=== PATIENT | male | born 1950 | race American Indian/Alaskan Native ===

== ENCOUNTER → 2021-04-21 15:00 | Outpatient (CLI) | payer MEDICARE, MEDICAID, OTHER, SELFPAY ==
[2021-04-21 16:04] LABS: Add Manual Diff / Slide Review NO; Basophils Absolute Auto 0 /uL (0-100); Basophils Percent Auto 0.4 % (0-2); Eosinophils Absolute Auto 300 /uL (0-450); Eosinophils Percent Auto 3.9 % (2-4); Hematocrit 24.6 % (41-53); Hemoglobin 8.1 g/dL (13.5-17.5); Lymphocytes Absolute Auto 1700 /uL (1100-4500); Lymphocytes Percent Auto 22.6 % (25-40); Mean Corpuscular Hemoglobin 25.8 PG (26-34); Mean Corpuscular Volume 78.2 fL (80-100); Monocytes Absolute Auto 400 /uL (0-900); Monocytes Percent Auto 5.9 % (3-14); Neutrophils Absolute Auto 5000 /uL (1500-7000); Neutrophils Percent Auto 67.2 % (50-75); Platelet Count 304 X10^3/uL (150-400); Red Blood Cell Count 3.14 X10^6/uL (4.5-5.9); Red Cell Distribution Width 24.4 % (11.6-14.8); White Blood Cell Count 7.5 X10^3/uL (4.5-11.0)
[2021-04-21 16:35] LABS: Anisocytosis 3+; Microcytosis 1+
== END ==
PROVIDERS: PCP Family Medicine; Referring Provider Family Medicine; Visit Provider Family Medicine
DX: I63.9 Cerebral infarction, unspecified (principal); R58 Hemorrhage, not elsewhere classified
CPT/HCPCS: 36415; 85025

== ENCOUNTER 2021-06-01 16:43 | Inpatient (IN) | payer MEDICARE, MEDICAID, OTHER, SELFPAY ==
[2021-06-01] VITALS (16 sets, daily range): BP systolic 93–138; BP diastolic 53–72; PULSE 74–105; RESP 16–26; TEMP 36.1–37.2; O2SAT 95–100; BMI 22.7
[2021-06-01 17:46] LABS: Prothrombin Time 11.6 SECONDS (10.1-12.7)
[2021-06-01 17:47] LABS: Add Manual Diff / Slide Review NO; Basophils Absolute Auto 0 /uL (0-100); Basophils Percent Auto 0.5 % (0-2); Eosinophils Absolute Auto 200 /uL (0-450); Eosinophils Percent Auto 2.5 % (2-4); Lymphocytes Absolute Auto 1100 /uL (1100-4500); Mean Corpuscular HGB Conc 30.9 % (30-36); Mean Corpuscular Hemoglobin 22.8 PG (26-34); Mean Corpuscular Volume 73.7 fL (80-100); Monocytes Absolute Auto 400 /uL (0-900); Monocytes Percent Auto 6.9 % (3-14); Neutrophils Absolute Auto 4300 /uL (1500-7000); Neutrophils Percent Auto 71.1 % (50-75); Platelet Count 386 X10^3/uL (150-400); Red Blood Cell Count 2.15 X10^6/uL (4.5-5.9); Red Cell Distribution Width 18.4 % (11.6-14.8)
[2021-06-01 17:49] LABS: PTT Partial Thromboplastin Tim 58 SECONDS (26.4-36.2)
[2021-06-01 17:51] LABS: Alanine Aminotransferase 13 IU/L (<50); Albumin 4.3 g/dL (3.5-5.0); Albumin Globulin Ratio 1.3 (1.0-2.8); Alkaline Phosphatase 136 U/L (38-126); Aspartate Aminotransferase 24 IU/L (17-59); BUN Creatinine Ratio 39.5 (6-22); Bilirubin Total 0.3 mg/dL (0.2-1.3); Blood Urea Nitrogen 45 mg/dL (9-20); Carbon Dioxide 25 mmol/L (22-32); Chloride 110 mmol/L (98-107); Estimated Glomerular Filt Rate > 60.0 mL/min (>60); Globulin 3.4 g/dL (1.7-4.1); Glucose 119 mg/dL (80-110); HEMOLYSIS < 15 (0-50); Sodium 144 mmol/L (137-145); Total Protein 7.7 g/dL (6.3-8.2)
[2021-06-01 17:54] LABS: Hematocrit 15.8 % (41-53); Hemoglobin 4.9 g/dL (13.5-17.5)
[2021-06-01 17:58] LABS: Potassium 5.5 mmol/L (3.4-5.1)
--- NOTE | 2021-06-01 18:18 | ED_ITS ---
HPI - GI Bleed General Chief complaint: GI Bleed Stated complaint: rectal bleed Time Seen by Provider: 06/01/21 17:50 History of Present Illness HPI Narrative: 71-year-old male with history of multiple strokes leaving him with sided weakness and expressive aphasia. Patient presents due to fatigue and lightheadedness and had large bright red bloody stool earlier today. He does have a history of lower GI bleed as recently as March, he had been seen at [facility]. He takes aspirin but no other blood thinners. He denies any pain nor fever or chills. He was COVID positive about 1 week ago but no longer is feverish in has no runny nose, sore throat cough or chest pain. Related Data Home Medications Medication Instructions Recorded Confirmed ASPIRIN (Aspirin Low Dose) mg PO #0 03/14/08 atorvastatin 10 mg tablet (Lipitor) #0 11/18/16 hydrocodone 10 mg-acetaminophen #0 11/18/16 325 mg tablet Previous Rx's Medication Instructions Recorded cephalexin 500 mg capsule 500 mg PO TID #21 cap 11/18/16 Allergies Allergy/AdvReac Type Severity Reaction Status Date / Time No Known Drug Allergies Allergy Verified 06/01/21 19:59 Review of Systems Review of Systems Narrative: GENERAL: See HPI HEENT: Denies sinus pain, ear pain, sore throat, difficulty swallowing, dizziness. RESPIRATORY: Denies dyspnea, cough, wheezing, hemoptysis, sputum. CARDIOVASCULAR: Denies chest pain, palpitations, orthopnea, edema, GASTROINTESTINAL: See HP : Denies dysuria, frequency, incontinence, hematuria, urinary retention. MUSCULOSKELETAL: denies weakness, joint pain, or bony pain SKIN: Denies rash, skin lesions, or other NEUROLOGIC: Denies weakness, headache, numbness, change in speech, confusion, seizures, incoordination. PSYCHIATRIC: No concerning psychosocial issues. 12 point review of systems is negative except for those stated above Patient History Medical History (Updated 06/01/21 @ 23:46 by TRISHA Sorenson) Aphasia as late effect of stroke History of stroke within last year Surgical History (Updated 06/02/21 @ 01:20 by TRISHA Sorenson) S/P percutaneous endoscopic gastrostomy (PEG) tube placement Family History (Updated 06/02/21 @ 01:05 by TRISHA Sorenson) Mother Myocardial infarction Father Alcoholism Social History (Updated 06/02/21 @ 01:07 by TRISHA Sorenson) marital status: unmarried,living together household members: significant other lives independently: Yes caregiver/support person: Yes 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 Well-developed patient, in no obvious distress, nonverbal but communicates with head nods. HEAD: Atraumatic. Normocephalic. EYES: Pale conjunctiva Pupils equal round and reactive. Extraocular motions intact. No scleral icterus. No injection or drainage. ENT: Nose without bleeding, purulent drainage. Throat without erythema, tonsillar hypertrophy or exudate. Airway patent. NECK: Trachea midline. Non tender CARDIOVASCULAR: Regular rate and rhythm without murmurs, gallops, or rubs. RESPIRATORY: Clear to auscultation. Breath sounds equal bilaterally. No wheezes, rales, or rhonchi. GASTROINTESTINAL: Abdomen soft, non-tender, nondistended. EXTREMITIES: No edema or joint tenderness. BACK: Nontender without deformity or crepitance. No flank tenderness. 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) Stat 06/01/21 17:30 Complete Blood Count AUTO DIFF Stat Comprehensive Metabolic Panel Stat Partial Thromboplastin Time Stat Prothrombin Time INR Stat Type and Screen Stat transfuse [Packed Cells] Stat Acetaminophen (Acetaminophen 650 Mg Supp) 650 mg TX Q4HR PRN PRN Reason: Fever/Mild Pain (1-3) Dextrose (Dextrose 50 % In Water 25 Gm/50 Ml Syringe) 25 gm IV PRN PRN PRN Reason: Hypoglycemia Ceftriaxone Sodium 1,000 mg/ (Sodium Chloride) 100 mls @ 200 mls/hr IV Q24H NIECY Sodium Chloride (Normal Saline 0.9%) 250 mls @ 21 mls/hr IV Q24H PRN PRN Reason: Flush Last Admin: 06/02/21 01:11 Dose: 21 mls/hr Documented by: LOGK Insulin Human Lispro (Insulin Lispro 100 Unit/Ml 3ml Vial) 0 unit SUBCUT ACHS NIECY; Protocol Naloxone HCl (Naloxone 0.4 Mg/Ml Vial) 0.2 mg IV Q2MIN PRN PRN Reason: Opiate Reversal Ondansetron HCl (Ondansetron 4 Mg/2 Ml Inj) 4 mg IV Q8HR PRN PRN Reason: Nausea And Vomiting Pantoprazole Sodium (Pantoprazole 40 Mg Vial) 40 mg IV BID NIECY Discontinued Medications Ceftriaxone Sodium 2,000 mg/ (Sodium Chloride) 100 mls @ 200 mls/hr IV NOW ONE Stop: 06/01/21 23:36 Last Admin: 06/02/21 01:11 Dose: 200 mls/hr Documented by: LOGK Pantoprazole Sodium (Pantoprazole 40 Mg Vial) 40 mg IV NOW ONE Stop: 06/01/21 19:48 Last Admin: 06/01/21 20:00 Dose: 40 mg Documented by: ATAYLOR Consultations Consultation #1: general surgery contacted and happy to play a role in consultation, request admission to hospitalist service Vital Signs Vital signs: Vital Signs - 8 hr 06/01/21 18:00 06/01/21 18:30 06/01/21 19:00 Temperature Pulse Rate 96 H 88 104 H Respiratory Rate 26 H 17 24 Blood Pressure Pulse Oximetry 95 98 06/01/21 19:04 06/01/21 19:30 06/01/21 20:00 Temperature Pulse Rate 93 H 90 92 H Respiratory Rate 17 16 18 Blood Pressure 106/56 L 96/55 L 107/58 L Pulse Oximetry 100 100 100 06/01/21 20:20 06/01/21 20:23 Temperature 97.5 F L Pulse Rate 96 H 93 H Respiratory Rate 19 16 Blood Pressure 98/55 L 98/55 L Pulse Oximetry 99 MDM - GI Bleed Lab Data Result diagrams: 06/01/21 17:30 06/01/21 17:30 Labs: Lab Results 06/01/21 06/01/21 06/01/21 Range/Units 17:25 17:30 17:30 WBC 6.0 (4.5-11.0) X10^3/uL RBC 2.15 L (4.5-5.9) X10^6/uL Hgb 4.9 L* (13.5-17.5) g/dL Hct 15.8 L* (41-53) % MCV 73.7 L (80-100) fL MCH 22.8 L (26-34) PG MCHC 30.9 (30-36) % RDW 18.4 H (11.6-14.8) % Plt Count 386 (150-400) X10^3/uL Neut % (Auto) 71.1 (50-75) % Lymph % (Auto) 19.0 L (25-40) % [place] % (Auto) 6.9 (3-14) % Eos % (Auto) 2.5 (2-4) % Baso % (Auto) 0.5 (0-2) % Neut # (Auto) 4300 (7878-9221) /uL Lymph # (Auto) 1100 (8051-9011) /uL [place] # (Auto) 400 (0-900) /uL Eos # (Auto) 200 (0-450) /uL Baso # (Auto) 0 (0-100) /uL PT 11.6 (10.1-12.7) SECONDS INR 1.0 (0.9-1.3) APTT 58 H (26.4-36.2) SECONDS Sodium (137-145) mmol/L Potassium (3.4-5.1) mmol/L Chloride (98-107) mmol/L Carbon Dioxide (22-32) mmol/L BUN (9-20) mg/dL Creatinine (0.66-1.25) mg/dL Estimated GFR (>60) mL/min BUN/Creatinine Ratio (6-22) Glucose (80-110) mg/dL Calcium (8.4-10.2) mg/dL Total Bilirubin (0.2-1.3) mg/dL AST (17-59) IU/L ALT (<50) IU/L Alkaline Phosphatase (38-126) U/L Total Protein (6.3-8.2) g/dL Albumin (3.5-5.0) g/dL Globulin (1.7-4.1) g/dL Albumin/Globulin Ratio (1.0-2.8) SARS-CoV-2 (PCR) Positive H (Negative) Blood Type Antibody Screen Crossmatch 06/01/21 06/01/21 Range/Units 17:30 17:30 WBC (4.5-11.0) X10^3/uL RBC (4.5-5.9) X10^6/uL Hgb (13.5-17.5) g/dL Hct (41-53) % MCV (80-100) fL MCH (26-34) PG MCHC (30-36) % RDW (11.6-14.8) % Plt Count (150-400) X10^3/uL Neut % (Auto) (50-75) % Lymph % (Auto) (25-40) % [place] % (Auto) (3-14) % Eos % (Auto) (2-4) % Baso % (Auto) (0-2) % Neut # (Auto) (3310-8162) /uL Lymph # (Auto) (0984-2388) /uL [place] # (Auto) (0-900) /uL Eos # (Auto) (0-450) /uL Baso # (Auto) (0-100) /uL PT (10.1-12.7) SECONDS INR (0.9-1.3) APTT (26.4-36.2) SECONDS Sodium 144 (137-145) mmol/L Potassium 5.5 H (3.4-5.1) mmol/L Chloride 110 H (98-107) mmol/L Carbon Dioxide 25 (22-32) mmol/L BUN 45 H (9-20) mg/dL Creatinine 1.14 (0.66-1.25) mg/dL Estimated GFR > 60.0 (>60) mL/min BUN/Creatinine Ratio 39.5 H (6-22) Glucose 119 H (80-110) mg/dL Calcium 9.0 (8.4-10.2) mg/dL Total Bilirubin 0.3 (0.2-1.3) mg/dL AST 24 (17-59) IU/L ALT 13 (<50) IU/L Alkaline Phosphatase 136 H (38-126) U/L Total Protein 7.7 (6.3-8.2) g/dL Albumin 4.3 (3.5-5.0) g/dL Globulin 3.4 (1.7-4.1) g/dL Albumin/Globulin Ratio 1.3 (1.0-2.8) SARS-CoV-2 (PCR) (Negative) Blood Type O Positive Antibody Screen Negative Crossmatch See Detail Discharge Plan Departure Patient Disposition: Admitted As Inpatient Clinical Impression: Acute GI bleeding, Anemia, COVID-19 Admit Date/Time: 06/01/21 20:27 Admit Provider: Razia Sotomayor
[2021-06-01 18:21] LABS: COVID19 - ADMIT (NP swab/PCR) POSITIVE (Negative)
[2021-06-01] MEDS: PANTOPRAZOLE 40 MG VIAL IV (20:00)
[2021-06-01 21:55] LABS: Bacteria Urine Moderate (10-30); Culture Indicated Urine Specimen Cultured; RBC Urine 0-1/HPF (0-5/HPF); Squamous Epithelial Cell Urine 0-1 /HPF (0-5/HPF); WBC Urine 10-30/HPF (0-5/HPF)
--- NOTE | 2021-06-01 23:44 | P.HP_ITS ---
History of Present Illness History of Present Illness Date Patient Seen: 06/01/21 Time Patient Seen: 22:00 Chief complaint: Rectal bleed, UTI Narrative: Charlie Francis is a 69-year-old male with a history of multiple strokes the 1st 1 occurring approximately 20 years ago followed by a series of 5 strokes that began in January of 2020 with 3 in 6 session over 2 week. Followed by another CVA in July of 2020 and the last 1 occurring in March of 2021. He was seen at [facility] for a GI bleed and admitted right before his last stroke. Per the discharge summary of March 30, 2021, the patient was transfused 3 units of PRBC. He underwent upper and lower endoscopy and they did not find any evidence of bleeding but he had mild duodenitis. He was also noted to have watershed infarcts full leave to be secondary to the blood loss. The patient has a past history of diabetes type 2 and when he was at [facility] his hemoglobin a was not see was 4.5 likely due to the dietary changes he has had to undergo. Patient is unable to provide a history as he is aphasic with significant left- sided deficits. Information is provided by review of [facility] records and discussion with his significant other Cristina Crain who is also his DPOA. He contracted breakthrough COVID-19 10 days ago and continues to test positive. Apparently his significant other and members of his family in the [facility] contracted COVID, likely over the holidays, members are now asymtomatic and are testing negative per Cristina. He had jes blood in this morning's bowel movement in a photo Cristina showed to the ED provider. She also noted he was weaker in his lower extremities. They have multiple physical therapists, occupational and speech therapists providing services to him as well as famly members. Patient can communicate through yes or no questions, nursing noted Cristina was able to communicate at a higher level with him. Patient's vital signs were stable as he is afebrile, blood pressure 102/62, heart rate 89, respiratory rate 17, oxygen saturation of 99% on room air he weighs 71.6 kg. His hemoglobin and hematocrit on presentation was 4.9 in 15.8 respectively, platelet count is 386, sodium 144, potassium 5.5, chloride 110, BUN 45, glucose 119, alk-phos 136, U/A is positive for a UTI, COVID-19 PCR is positive. Patient History Medical History (Updated 06/01/21 @ 23:46 by TRISHA Sorenson) Aphasia as late effect of stroke History of stroke within last year Surgical History (Updated 06/02/21 @ 01:20 by TRISHA Sorenson) S/P percutaneous endoscopic gastrostomy (PEG) tube placement Family & Social History Family History (Updated 06/02/21 @ 01:05 by TRISHA Sorenson) Mother Myocardial infarction Father Alcoholism Social History: Retired [place] [employer] Safety & Behavioral: Feels Safe in Current Yes Environment Been Physically Hurt or No Threatened By a Person Tobacco & Substance use: Remote history of alcoholism Meds Home Medications and Allergies Home Medications Medication Instructions Recorded Confirmed Type ASPIRIN (Aspirin Low Dose) mg PO #0 03/14/08 History atorvastatin 10 mg tablet (Lipitor) #0 11/18/16 History cephalexin 500 mg capsule 500 mg PO TID #21 cap 11/18/16 Rx hydrocodone 10 mg-acetaminophen #0 11/18/16 History 325 mg tablet Allergies Allergy/AdvReac Type Severity Reaction Status Date / Time No Known Drug Allergies Allergy Verified 06/01/21 19:59 Review of Systems Review of Systems ROS: Yes other (Aphasic) Exam Vital Signs (past 8 hours): - 06/01/21 17:04 06/01/21 17:30 06/01/21 18:00 Temperature 98.9 F Pulse Rate 96 H 93 H 96 H Respiratory Rate 16 24 26 H Blood Pressure 138/65 Pulse Oximetry 100 100 95 06/01/21 18:30 06/01/21 19:00 06/01/21 19:04 Temperature Pulse Rate 88 104 H 93 H Respiratory Rate 17 24 17 Blood Pressure 106/56 L Pulse Oximetry 98 100 06/01/21 19:30 06/01/21 20:00 06/01/21 20:20 Temperature Pulse Rate 90 92 H 96 H Respiratory Rate 16 18 19 Blood Pressure 96/55 L 107/58 L 98/55 L Pulse Oximetry 100 100 99 06/01/21 20:23 06/01/21 20:30 06/01/21 20:39 Temperature 97.5 F L 97.8 F Pulse Rate 93 H 105 H 74 Respiratory Rate 16 25 H 16 Blood Pressure 98/55 L 93/53 L 110/55 L Pulse Oximetry 100 06/01/21 21:25 06/01/21 22:46 06/01/21 23:05 Temperature 96.9 F L 97.5 F L 97.5 F L Pulse Rate 92 H 94 H 94 H Respiratory Rate 18 18 18 Blood Pressure 117/72 106/61 106/61 Pulse Oximetry 99 06/01/21 23:30 Temperature 98.0 F Pulse Rate 89 Respiratory Rate 17 Blood Pressure 102/62 Pulse Oximetry Oxygen Delivery Method Room Air Narrative Exam Narrative: Gen: Alert, oriented, well-developed 71 y.o. male, NAD HEENT: normocephalic, atraumatic, conjunctiva clear, sclera non-icteric, oral mucosa pink and moist Neck: supple, full ROM, no JVD, trachea is midline Resp: Lungs CTA, non-labored breathing CV: RRR, no murmur or rubs Abd: soft, non-tender, normoactive BTs Skin: no lesions or rashes, dry and intact Neuro: Alert and oriented, left side appears to be flaccid. Aphasic Extremities: moves all 4 extremities, is wheelchair bound, negative Kenneth?s sign Psyche: normal mood and affect. Objective Labs Result Diagrams: 06/01/21 17:30 06/01/21 17:30 Labs: Laboratory Results - last 24 hr 06/01/21 06/01/21 06/01/21 17:25 17:30 17:30 WBC 6.0 RBC 2.15 L Hgb 4.9 L* Hct 15.8 L* MCV 73.7 L MCH 22.8 L MCHC 30.9 RDW 18.4 H Plt Count 386 Neut % (Auto) 71.1 Lymph % (Auto) 19.0 L [place] % (Auto) 6.9 Eos % (Auto) 2.5 Baso % (Auto) 0.5 Neut # (Auto) 4300 Lymph # (Auto) 1100 [place] # (Auto) 400 Eos # (Auto) 200 Baso # (Auto) 0 PT 11.6 INR 1.0 APTT 58 H Sodium Potassium Chloride Carbon Dioxide BUN Creatinine Estimated GFR BUN/Creatinine Ratio Glucose Calcium Total Bilirubin AST ALT Alkaline Phosphatase Total Protein Albumin Globulin Albumin/Globulin Ratio Urine RBC Urine WBC Ur Squamous Epith Cells Urine Bacteria Ur Culture Indicated? SARS-CoV-2 (PCR) Positive H Blood Type Antibody Screen Crossmatch 06/01/21 06/01/21 06/01/21 17:30 17:30 21:24 WBC RBC Hgb Hct MCV MCH MCHC RDW Plt Count Neut % (Auto) Lymph % (Auto) [place] % (Auto) Eos % (Auto) Baso % (Auto) Neut # (Auto) Lymph # (Auto) [place] # (Auto) Eos # (Auto) Baso # (Auto) PT INR APTT Sodium 144 Potassium 5.5 H Chloride 110 H Carbon Dioxide 25 BUN 45 H Creatinine 1.14 Estimated GFR > 60.0 BUN/Creatinine Ratio 39.5 H Glucose 119 H Calcium 9.0 Total Bilirubin 0.3 AST 24 ALT 13 Alkaline Phosphatase 136 H Total Protein 7.7 Albumin 4.3 Globulin 3.4 Albumin/Globulin Ratio 1.3 Urine RBC 0-1/hpf Urine WBC 10-30/hpf H Ur Squamous Epith Cells 0-1 /hpf Urine Bacteria Moderate (10-30) H Ur Culture Indicated? Specimen cultured SARS-CoV-2 (PCR) Blood Type O Positive Antibody Screen Negative Crossmatch See Detail Assessment & Plan Assessment & Plan narrative: Charlie Francis will be admitted for treatment and management of asymptomatic anemia. 1. Symptomatic gastrointestinal bleed, acute, present on admission * His initially written for 2 units PRBC. Will do H&H after 2 units and if below 8 will transfuse 1 more unit. * IV Protonix 40 mg b.i.d. 2. COVID-19, present on admission * Airborne isolation precautions * This is an asymptomatic breakthrough infection so will not initiate COVID treatment 3. Urinary tract infection, acute, present on admission * Start IV ceftriaxone with a loading dose of to 2 gr followed by 1 gr daily * Await UA culture results and adjust based on culture and sensitivity 4. Recent history of multiple CVAs, appears to be now chronic * Have ordered PT and OT as he was involved with those therapies when admitted * Dietary consult for tube feedings 5. History of diabetes type 2 * Will have a.c. HS glucose checks and low dose correctional insulin 6. Essential hypertension, stable * Per [facility] records he was taking amlodipine 2.5 mg per G-tube daily will continue 7. Hyperlipidemia, stable * Per [facility] records he was taking atorvastatin 40 mg per G-tube at bedtime VTE Prophylaxis: Wells risk score 0, pharmacological anticoagulation is currently contraindicated due to the patient's current bleeding. Bilateral SCDs as tolerated Patient is admitted to the inpatient service due to the severity of disease, risks of further disease progression and this stay is expected to exceed 2 midnights. FEN: IV fluids: saline lock, diet: tube feedings, labs: CBC, C/BMP, liver enzymes, Mag Consultants Dr. Long, care and involvement in the patient?s care is appreciated. Dispo: probable discharge back to home Code status: Limited code as discussed patient's DPOA and fiance, no intubation [X] I have utilized all available immediate resources to obtain, update, or review of the patient's current medications COVID-19 COVID-19 status: Positive Result date/Date tested (Pos, Neg/Pending): 06/02/21 Quality VTE Deep Vein Thrombosis/Pulmonary Embolism Present on Admission: No MIPS - Admit I confirm the patient?s Advance Care Plan is present, Code status is documented, Surrogate decision maker is in patient?s record [If Yes, STOP here]: Yes MIPS - DC The patient has current or prior documentation of left ventricular ejection fraction (LVEF) less than 40%, or moderate or severely depressed left ventricular systolic function.: No
[2021-06-02] VITALS (12 sets, daily range): BP systolic 106–155; BP diastolic 58–73; PULSE 79–91; RESP 16–18; TEMP 36.2–37.2; O2SAT 92–100
[2021-06-02] MEDS: SODIUM CHLORIDE 0.9% 250 ML 21 ML IV (01:11)
[2021-06-02] MEDS: cefTRIAXone 2,000 MG in SODIUM CHLORIDE 0.9% 100 ML 200 ML IV (01:11)
--- NOTE | 2021-06-02 02:26 | PC.NURSE ---
Pt arrived from ED on stretcher at 2100. PRBC infusing at time of arrival. Pt nonverbal, answers yes/no questions with nodding, significant other assisted with admission. Pt oriented to room, call light and fall precautions. Call light and belongings within reach.
[2021-06-02 02:45] LABS: Add Manual Diff / Slide Review NO; Basophils Absolute Auto 100 /uL (0-100); Basophils Percent Auto 0.9 % (0-2); Eosinophils Absolute Auto 200 /uL (0-450); Eosinophils Percent Auto 3.2 % (2-4); Hemoglobin 7.2 g/dL (13.5-17.5); Lymphocytes Absolute Auto 1300 /uL (1100-4500); Lymphocytes Percent Auto 20.2 % (25-40); Mean Corpuscular HGB Conc 32.5 % (30-36); Mean Corpuscular Hemoglobin 26.1 PG (26-34); Mean Corpuscular Volume 80.4 fL (80-100); Monocytes Absolute Auto 500 /uL (0-900); Monocytes Percent Auto 7.4 % (3-14); Neutrophils Absolute Auto 4400 /uL (1500-7000); Neutrophils Percent Auto 68.3 % (50-75); Platelet Count 329 X10^3/uL (150-400); Red Blood Cell Count 2.77 X10^6/uL (4.5-5.9); White Blood Cell Count 6.4 X10^3/uL (4.5-11.0)
[2021-06-02 02:46] LABS: Hematocrit 22.3 % (41-53)
[2021-06-02 02:49] LABS: BUN Creatinine Ratio 37.3 (6-22); Blood Urea Nitrogen 38 mg/dL (9-20); Carbon Dioxide 27 mmol/L (22-32); Chloride 113 mmol/L (98-107); Estimated Glomerular Filt Rate > 60.0 mL/min (>60); Glucose 92 mg/dL (80-110); HEMOLYSIS < 15 (0-50); Sodium 143 mmol/L (137-145)
[2021-06-02 02:54] LABS: Potassium 5.4 mmol/L (3.4-5.1)
--- NOTE | 2021-06-02 09:10 | OT.IPNOTE ---
Per nurse to hold OT eval as suppose to get another Hct and Hgb reading currently he is 7.2 Hgb and 22.3 Hct.
[2021-06-02] MEDS: AMLODIPINE 5 MG TABLET 2.5 MG TUBE (09:42)
[2021-06-02] MEDS: PANTOPRAZOLE 40 MG VIAL IV ×2 (09:42→21:32)
--- NOTE | 2021-06-02 11:07 | PM.CN ---
History of Present Illness Consult details Date Patient Seen: 06/02/21 Chief complaint: Rectal bleed, UTI Reason for consult: Severe anemia and GI bleed Requesting provider: Melanie Spencer Narrative: Recent GI bleed with hospitalization at [facility]. Covid positive and reports of deferred EGD and Colonoscopy until not infectious. Light head, blood in toilet. Meds Home Medications and Allergies Home Medications Medication Instructions Recorded Confirmed Type ASPIRIN (Aspirin Low Dose) mg PO #0 03/14/08 History atorvastatin 10 mg tablet (Lipitor) #0 11/18/16 History cephalexin 500 mg capsule 500 mg PO TID #21 cap 11/18/16 Rx hydrocodone 10 mg-acetaminophen #0 11/18/16 History 325 mg tablet Allergies Allergy/AdvReac Type Severity Reaction Status Date / Time No Known Drug Allergies Allergy Verified 06/01/21 19:59 Exam Vital Signs (past 8 hours): - 06/02/21 04:57 06/02/21 05:14 06/02/21 07:45 Temperature 97.7 F 97.7 F 98.9 F Pulse Rate 83 79 79 Respiratory Rate 18 16 16 Blood Pressure 142/73 H 133/66 127/58 L Pulse Oximetry 99 06/02/21 08:05 06/02/21 09:00 Temperature 98.9 F Pulse Rate 79 Respiratory Rate 16 Blood Pressure 127/58 L Pulse Oximetry 99 Oxygen Delivery Method Room Air Oxygen Flow Rate 0 Narrative Exam Narrative: deferred until tomorrow just prior to procedure. Objective Labs Result Diagrams: 06/02/21 02:24 06/02/21 02:24 Labs: Laboratory Results - last 24 hr 06/01/21 06/01/21 06/01/21 17:25 17:30 17:30 WBC 6.0 RBC 2.15 L Hgb 4.9 L* Hct 15.8 L* MCV 73.7 L MCH 22.8 L MCHC 30.9 RDW 18.4 H Plt Count 386 Neut % (Auto) 71.1 Lymph % (Auto) 19.0 L [place] % (Auto) 6.9 Eos % (Auto) 2.5 Baso % (Auto) 0.5 Neut # (Auto) 4300 Lymph # (Auto) 1100 [place] # (Auto) 400 Eos # (Auto) 200 Baso # (Auto) 0 PT 11.6 INR 1.0 APTT 58 H Sodium Potassium Chloride Carbon Dioxide BUN Creatinine Estimated GFR BUN/Creatinine Ratio Glucose Calcium Total Bilirubin AST ALT Alkaline Phosphatase Total Protein Albumin Globulin Albumin/Globulin Ratio Urine RBC Urine WBC Ur Squamous Epith Cells Urine Bacteria Ur Culture Indicated? SARS-CoV-2 (PCR) Positive H Blood Type Antibody Screen Crossmatch 06/01/21 06/01/21 06/01/21 17:30 17:30 21:24 WBC RBC Hgb Hct MCV MCH MCHC RDW Plt Count Neut % (Auto) Lymph % (Auto) [place] % (Auto) Eos % (Auto) Baso % (Auto) Neut # (Auto) Lymph # (Auto) [place] # (Auto) Eos # (Auto) Baso # (Auto) PT INR APTT Sodium 144 Potassium 5.5 H Chloride 110 H Carbon Dioxide 25 BUN 45 H Creatinine 1.14 Estimated GFR > 60.0 BUN/Creatinine Ratio 39.5 H Glucose 119 H Calcium 9.0 Total Bilirubin 0.3 AST 24 ALT 13 Alkaline Phosphatase 136 H Total Protein 7.7 Albumin 4.3 Globulin 3.4 Albumin/Globulin Ratio 1.3 Urine RBC 0-1/hpf Urine WBC 10-30/hpf H Ur Squamous Epith Cells 0-1 /hpf Urine Bacteria Moderate (10-30) H Ur Culture Indicated? Specimen cultured SARS-CoV-2 (PCR) Blood Type O Positive Antibody Screen Negative Crossmatch See Detail 06/02/21 06/02/21 02:24 02:24 WBC 6.4 RBC 2.77 L Hgb 7.2 L Hct 22.3 L MCV 80.4 D MCH 26.1 MCHC 32.5 RDW 20.0 H Plt Count 329 Neut % (Auto) 68.3 Lymph % (Auto) 20.2 L [place] % (Auto) 7.4 Eos % (Auto) 3.2 Baso % (Auto) 0.9 Neut # (Auto) 4400 Lymph # (Auto) 1300 [place] # (Auto) 500 Eos # (Auto) 200 Baso # (Auto) 100 PT INR APTT Sodium 143 Potassium 5.4 H Chloride 113 H Carbon Dioxide 27 BUN 38 H Creatinine 1.02 Estimated GFR > 60.0 BUN/Creatinine Ratio 37.3 H Glucose 92 Calcium 9.0 Total Bilirubin AST ALT Alkaline Phosphatase Total Protein Albumin Globulin Albumin/Globulin Ratio Urine RBC Urine WBC Ur Squamous Epith Cells Urine Bacteria Ur Culture Indicated? 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
--- NOTE | 2021-06-02 11:10 | PT-IP ANOTE ---
Pt was on hold this morning due to low H&H. checked with nurse and pt just received 2 units of blood. per rounds: hold pending H&H result.
[2021-06-02 12:20] LABS: Hemoglobin 8.8 g/dL (13.5-17.5); Mean Corpuscular HGB Conc 32.6 % (30-36); Mean Corpuscular Hemoglobin 26.1 PG (26-34); Mean Corpuscular Volume 80.1 fL (80-100); Platelet Count 302 X10^3/uL (150-400); Red Blood Cell Count 3.37 X10^6/uL (4.5-5.9); Red Cell Distribution Width 19.2 % (11.6-14.8); White Blood Cell Count 6.1 X10^3/uL (4.5-11.0)
--- NOTE | 2021-06-02 12:30 | PT.IIE ---
Current Diagnoses Gastrointestinal hemorrhage, unspecified (06/01/21) Surgery Performed Operation Date: 06/03/21 09:00 <No data on this case meets the specified criteria> Medical History (Last Updated 06/01/21 @ 23:46 by TRISHA Sorenson) Aphasia as late effect of stroke History of stroke within last year Physical Therapy Inpatient Evaluation/Re-Eval M1 PT/OT-IP Prior Functional Status Start: 06/02/21 13:04 Freq: NEEDED Status: Active Protocol: Document 06/02/21 12:30 AB (Rec: 06/02/21 13:35 [email or web address]) Medical Review Prior Functional Status Medical History Reviewed Yes Diet/Fluid Consistency Alternative Means,NPO Communication pt with aphasia and unable to verbalize needs; able to nod in agreement but inconsistent Mobility and Gait Called pt's DPOA Cristina and PLOF and home set up obtained; stated that pt requires max A with transfers and is w/c bound. requires assist with w /c mobility. stated that pt has good days and bad days but most of the time needing 1 person assist with transfers. Activities of Daily Living and IADL's DPOA stated that pt is assisted with showers (has a shower transfer chair), toileting and dressing; Social History Household Members caregiver Living Arrangements House Number of Floors (Floors) One Floor Number of Stairs To Enter/Railing? ramp to enter Home Environment High Toilet Home Equipment Manual Wheelchair,Hospital Bed M2 PT-IP Current Condition Start: 06/02/21 13:04 Freq: NEEDED Status: Active Protocol: Document 06/02/21 12:30 AB (Rec: 06/02/21 13:35 [email or web address]) Physical Therapy Current Condition Current Condition Evaluation Date 06/02/21 Treatment Diagnosis Covid+; GI bleed; generalized weakness Onset Date 06/01/20 M3 PT-IP Subjective Start: 06/02/21 13:04 Freq: NEEDED Status: Active Protocol: Document 06/02/21 12:30 AB (Rec: 06/02/21 13:35 [email or web address]) Subjective Physical Therapy Visit Type Type Initial Evaluation Visit Start Time 12:30 Visit Stop Time 12:58 Total Visit Minutes 28 Number of CELL ASSEMBLY PINNER Visits 0 M4 PT-IP Mobility and Gait Start: 06/02/21 13:04 Freq: NEEDED Status: Active Protocol: Document 06/02/21 12:30 AB (Rec: 06/02/21 13:35 AB [email or web address]) PT-Bed Mobility Assessment Supine to Sit Supine to Sit Minimal Assistance,Head of Bed Elevated Sit to Supine Sit to Supine Minimal Assistance,Head of Bed Elevated PT-Transfer Assessment Sit to and From Stand Sit to and from Stand Maximum Assistance,1 Person Assistance,Use of Upper Extremities Equipment Transfer Assistive Device None,Front Wheeled Walker Orthotic/Prosthetic Devices or Brace: No Transfers Transfer Destination Bed,Chair Transfer Technique Stand Step Pivot Transfer Ability Level of Assist Maximum Assistance,1 Person Assistance,Use of Upper Extremities Comments Mobility Comments pt sitting on chair. pt with aphasia but agreed to do PT. requires max cues with all tasks. completed sit to stand from chair max A and squat pivot to bed max A and cues. completed sit<>supine min A and cues with HOB elevated. pt has a hospital bed at home. Pt able to sit on EOB CGA. completed sit to stand from bed max A and cues for upright posture and completed step transfer using FWW max A and max cues. positioned pt on chair. call light and table placed within reach. informed nurse regarding pt's mobility level. PT-Balance Assessment Sitting Balance and Reactions Static Sitting Balance Ability Fair Dynamic Sitting Balance Ability Fair Standing Balance and Reactions Static Standing Balance Ability Poor Dynamic Standing Balance Ability Poor Device Used FWW M5 PT-IP Objective Assessments Start: 06/02/21 13:04 Freq: NEEDED Status: Active Protocol: Document 06/02/21 12:30 AB (Rec: 06/02/21 13:35 AB [id number]) Orientation Orientation/Cognition Safety Awareness Decreased Safety Awareness Comments pt with aphasia Gross Range of Motion Lower Extremity ROM Assessment Within Functional Limits Strength Lower Extremity Strength Hip 4-/5 Knee 4-/5 Muscle Tone Muscle Tone WNL Yes M6 PT-IP Treatment Start: 06/02/21 13:04 Freq: NEEDED Status: Active Protocol: Document 06/02/21 12:30 AB (Rec: 06/02/21 13:35 AB [id number]) Physical Therapy Treatment Education Education Provided Safety M7 PT-IP Assessment and Plan Start: 06/02/21 13:04 Freq: NEEDED Status: Active Protocol: Document 06/02/21 12:30 AB (Rec: 06/02/21 13:35 AB [email or web address]) PT Summary Assessment and Plan Potential Rehabilitation Potential Fair Summary Impairments Pain,ROM,Strength,Balance, Coordination,Sensation,Tone, Cognition,Bed Mobility, Transfers,Gait,Activity Tolerance Assessment Summary spoke with pt's DPOA/caregiver and stated that pt has been w /c bound and needing 1 person assist with all tasks since last CVA ~ 3 months ago. pt has h/o multiple strokes. DPOA stated that pt's level of assistance varies but most of the time needing max A. Pt has a hospital bed and a w/c and has 24/7 assist at home. PT eval completed and [facility] is [facility] and no further PT intervention indicated at this time. Frequency of Treatment Frequency Of Treatment Discharge Recommendations To Nursing Amount of Assist Needed 1 Person Assist Discharge Recommendations PT Discharge Recommendations Home with 24/7 Assist Available Transportation Needs at Discharge Wheelchair/Cabulance
[2021-06-02] MEDS: SODIUM CHLORIDE 0.9% FLUSH 10 ML IV ×2 (12:38→23:10)
[2021-06-02] MEDS: PEG3350/SOD SULF,BICARB,CL/KCL 4,000 ML SOLUTION 4000 ML PO (12:38)
--- NOTE | 2021-06-02 15:08 | OT.IPNOTE ---
Spoke to pt's DPOA on the phone and it was determined that pt has assist for all ADL needs at home and has all equipment needs and therefore not necessary for OT eval at this time. Discharge Ot eval orders.
--- NOTE | 2021-06-02 15:21 | DIET.CONS ---
Addendum entered by Cassie Frey 06/02/21 17:11: If doing continuous feed instead of bolus considering isolation precautions, nutrition recs below: Jevity 1.2 starting at 20 mL/hr Increase by 10-20mL q4H Goal rate: 65 ml/hr water flushes: 180mL q4H Feed kcals: 1872 (26 kcal/kg per CVA) Total PRO: 87gm (1.2 g/kg per CVA), Total carbs: 264g, Total fat: 61g Feed water: 1259mL Total water flushes: 1080ml Total fluids: 2339mL (32ml/kg) *if family wants to bring in his own Jevity from home to maintain usual regimen, this is approved by dietary Original Note: Dietary Consultation Note Admission Date: 06/01/2021 20:27 Assessment: 71 y/o M h/o multiple strokes. Currently Covid+ and asymptomatic. Has current GI bleed. Uses PEG for feeds. Elevated K at 5.5. Pt unable to provide details about PEG hx due to aphasic c significant left side deficits. Plans for EGD and colonoscopy with bowl prep today. RD to provide TF recs in the event that family is not providing TF solution from home and PEG feedings are restarted prior to RD return. Ht: 177.8 cm Wt: 72 kg BMI: 22.7 Last BM: 06/01/21 (06/01/21 21:00) MNA: 7 Hugh Score: 16 Diet: 06/02/21 Lunch Clear Liquid Diet Diet Modifications: 06/03/21 00:01 NPO Diet Diet Modifications: NPO Type: NPO except for Meds Labs: RBC 3.37 X10^6/uL (4.5-5.9) L 06/02/21 11:58 Hgb 8.8 g/dL (13.5-17.5) L 06/02/21 11:58 Hct 27.0 % (41-53) L 06/02/21 11:58 Creatinine 1.02 mg/dL (0.66-1.25) 06/02/21 02:24 Nutrition Diagnosis: Altered GI function r/t aphagia c left side deficits aeb PEG use and h/o multiple strokes Interventions: Jevity 1.2 x 260mL each feed, 6 feeds per day with 140mL flushes [place] feed 260ml Jevity 1.2 each at 8am, 10am, 1pm, 4pm, and 7pm with free water flush. Before each feed, flush line with 60mL free water into PEG, after feed give remainder free water (80mL). Feed kcals: 1872 (26 kcal/kg per CVA) Total PRO: 87gm (1.2 g/kg per CVA), Total carbs: 264g, Total fat: 61g Feed water: 1259mL Water flushes: 140ml each feed= 840mL per day Total fluids: 2099mL (29ml/kg) Monitoring/Evaluations: RD follow-up 1-4 days Electronically Signed by: Cassie Frey 06/02/21 15:21 Clinical Dietitian [address] [address]
--- NOTE | 2021-06-02 16:09 | CM.DANOTE ---
[facility] Brief Assessment: Patient is a 71 yr old male admitted with GI bleed, UTI and asymptomatic Covid. Patient lives with his significant other Cristina who is also his DPOA. patient has had multiple strokes in the past and is not Aphasia and unable to verbalize his needs. He does answer yes no questions but his significant other helps to work with him on this. patient is currently wheelchair bound and has lt sided weakness form previous strokes. Patient currently being treated for GI bleed with multiple transfusions and surgery consult. Patient works with PT, OT and speech on an outpatient basis and has a caregiver and his significant other who help with all his ADLs and needs at home. CM attempted to call the patients room to do assessment but unable to reach the patient. CM called and spoke briefly with Patients Significant other Cristina but was told that they do not need any other resources at this time and do not want SNF. Patient according to PT and OT is at his original functional level and has no need for SNF but maybe HH if the patient and S/O would like the support. CM asked S/O and was told she doesn't think he will need it. I: Medicare and medicaid Plan: home with significant other Cristina Cm department will follow to see if HH will be needed at [place]. Morena Justice RN Case Manger Discharge Planning/Care Management Advanced directive, confirm from FAMILY Start: 06/02/21 02:07 Freq: Q24H Status: Active Protocol: Document 06/02/21 02:07 (Rec: 06/02/21 02:26 KL [id number]) Advance Directive, confirm on record Time 21:30 Person contacted Cristina Crain Copy received No CM Discharge Assessment Start: 06/02/21 16:02 Freq: Status: Active Protocol: Document 06/02/21 16:03 HS (Rec: 06/02/21 16:08 HS [id number]) Discharge Planning Assessment Assigned Business Center Manager Morena Justice RNfinancial operations analyst DPOA/Assigned Designee Name Cristina Crain- significant other and DPOA Contact Information [phone] Advance Directives? Yes Advance Directives on File No History Provided By Patient,Family Member Has Patient been admitted in last 30 No days? Prior Living Arrangements House Comment patient lives with significant and has health services information specialist Household Members significant other,caregiver Type of transporation used prior to Relies on Others admit Independent with ADL's No: Patient is wheelchair bound needs help with ADLS Is patient alert and oriented? Yes: But unable to talk answers yes no questions Caregiver for Another No Community Services used prior to Physical Therapy,Occupational admission: Therapy,Speech Language Pathology DME Already Rented / Owned Wheelchair Patient/Family Preference OP PT Therapy,OP OT Therapy,OP MINE CAR REPAIRER Therapy Barriers to Discharge No Discharge Plan Home Community Services Physical Therapy,Occupational Therapy,Speech Language Pathology Referrals Initiated None needed Whiteboard Updated in Patient Room with Yes name and ext. # of Business Center Manager Review Status In Process Next Review Type Continued Stay Review
--- NOTE | 2021-06-02 17:44 | P.PN_ITS ---
Subjective Subjective Date Patient Seen: 06/02/21 Interval history: 71-year-old male admitted to the hospital for symptomatic anemia. The patient is nonverbal but can answer yes or not. He reports no nausea vomiting hematemesis or melena. He is being seen by General surgery with plans for upper and lower endoscopy tomorrow Exam Vital Signs (past 8 hours): Oxygen Delivery Method Room Air Oxygen Flow Rate 0 Narrative Exam Narrative: Pleasant male sitting in a chair in no distress Resp Other: Lungs clear to auscultation Cardio Other: Cardiac exam: Regular rate and rhythm normal S1-S2 GI Other: Abdomen: Soft nontender nondistended, no rebound tenderness Extrem Other: No edema Objective Labs Result Diagrams: 06/02/21 11:58 06/02/21 02:24 Labs: Laboratory Results - last 24 hr 06/01/21 06/01/21 06/01/21 17:25 17:30 17:30 WBC 6.0 RBC 2.15 L Hgb 4.9 L* Hct 15.8 L* MCV 73.7 L MCH 22.8 L MCHC 30.9 RDW 18.4 H Plt Count 386 Neut % (Auto) 71.1 Lymph % (Auto) 19.0 L [place] % (Auto) 6.9 Eos % (Auto) 2.5 Baso % (Auto) 0.5 Neut # (Auto) 4300 Lymph # (Auto) 1100 [place] # (Auto) 400 Eos # (Auto) 200 Baso # (Auto) 0 PT 11.6 INR 1.0 APTT 58 H Sodium Potassium Chloride Carbon Dioxide BUN Creatinine Estimated GFR BUN/Creatinine Ratio Glucose Calcium Total Bilirubin AST ALT Alkaline Phosphatase Total Protein Albumin Globulin Albumin/Globulin Ratio Urine RBC Urine WBC Ur Squamous Epith Cells Urine Bacteria Ur Culture Indicated? SARS-CoV-2 (PCR) Positive H Blood Type Antibody Screen Crossmatch 06/01/21 06/01/21 06/01/21 17:30 17:30 21:24 WBC RBC Hgb Hct MCV MCH MCHC RDW Plt Count Neut % (Auto) Lymph % (Auto) [place] % (Auto) Eos % (Auto) Baso % (Auto) Neut # (Auto) Lymph # (Auto) [place] # (Auto) Eos # (Auto) Baso # (Auto) PT INR APTT Sodium 144 Potassium 5.5 H Chloride 110 H Carbon Dioxide 25 BUN 45 H Creatinine 1.14 Estimated GFR > 60.0 BUN/Creatinine Ratio 39.5 H Glucose 119 H Calcium 9.0 Total Bilirubin 0.3 AST 24 ALT 13 Alkaline Phosphatase 136 H Total Protein 7.7 Albumin 4.3 Globulin 3.4 Albumin/Globulin Ratio 1.3 Urine RBC 0-1/hpf Urine WBC 10-30/hpf H Ur Squamous Epith Cells 0-1 /hpf Urine Bacteria Moderate (10-30) H Ur Culture Indicated? Specimen cultured SARS-CoV-2 (PCR) Blood Type O Positive Antibody Screen Negative Crossmatch See Detail 06/02/21 06/02/21 06/02/21 02:24 02:24 11:58 WBC 6.4 6.1 RBC 2.77 L 3.37 L Hgb 7.2 L 8.8 L Hct 22.3 L 27.0 L MCV 80.4 D 80.1 MCH 26.1 26.1 MCHC 32.5 32.6 RDW 20.0 H 19.2 H Plt Count 329 302 Neut % (Auto) 68.3 Lymph % (Auto) 20.2 L [place] % (Auto) 7.4 Eos % (Auto) 3.2 Baso % (Auto) 0.9 Neut # (Auto) 4400 Lymph # (Auto) 1300 [place] # (Auto) 500 Eos # (Auto) 200 Baso # (Auto) 100 PT INR APTT Sodium 143 Potassium 5.4 H Chloride 113 H Carbon Dioxide 27 BUN 38 H Creatinine 1.02 Estimated GFR > 60.0 BUN/Creatinine Ratio 37.3 H Glucose 92 Calcium 9.0 Total Bilirubin AST ALT Alkaline Phosphatase Total Protein Albumin Globulin Albumin/Globulin Ratio Urine RBC Urine WBC Ur Squamous Epith Cells Urine Bacteria Ur Culture Indicated? SARS-CoV-2 (PCR) Blood Type Antibody Screen Crossmatch [facility] Medical History (Updated 06/01/21 @ 23:46 by TRISHA Sorenson) Aphasia as late effect of stroke History of stroke within last year Surgical History (Updated 06/02/21 @ 01:20 by TRISHA Sorenson) S/P percutaneous endoscopic gastrostomy (PEG) tube placement Family History (Updated 06/02/21 @ 01:05 by TRISHA Sorenson) Mother Myocardial infarction Father Alcoholism Social History (Updated 06/02/21 @ 01:07 by TRISHA Sorenson) marital status: unmarried,living together household members: significant other and caregiver lives independently: Yes caregiver/support person: Yes 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 Will do H&H after 2 units and if below 8 will transfuse 1 more unit. * IV Protonix 40 mg b.i.d. * Surgery consultation for EGD and colonoscopy * Bowel prep was started * Patient required additional transfusion, hemoglobin hematocrit now 01/13 2. COVID-19, present on admission * Airborne isolation precautions * This is an asymptomatic breakthrough infection so will not initiate COVID treatment 3. Urinary tract infection, acute, present on admission * Start IV ceftriaxone with a loading dose of to 2 gr followed by 1 gr daily * Await UA culture results and adjust based on culture and sensitivity * Urine cultures Gram-negative back sellae, sensitivity pending 4. Recent history of multiple CVAs, appears to be now chronic * Have ordered PT and OT as he was involved with those therapies when admitted * No tube feeds at this time until EGD complete 5. History of diabetes type 2 * Will have a.c. HS glucose checks and low dose correctional insulin 6. Essential hypertension, stable * Per [facility] records he was taking amlodipine 2.5 mg per G-tube daily will continue 7. Hyperlipidemia, stable * Per [facility] records he was taking atorvastatin 40 mg per G-tube at bedtime Time Spent With Patient Critical Care time: I spent a total of [] minutes of critical care time on this patient's care today; this time is exclusive of procedural time. Quality VTE Deep Vein Thrombosis/Pulmonary Embolism Present on Admission: No
--- NOTE | 2021-06-02 19:15 | PC.NURSE ---
Assumed care of pt at 0700. Pt resting in bed during hand-off. Non-verbal but able to make needs known with non-verbal cues. Able to nod head yes and no. Picture board given and using appropriately. NPO, Oral care provided. Bowel prep started this afternoon to peg-tube. Incontinent stools and voids. Able to use call light appropriately.
[2021-06-02] MEDS: ATORVASTATIN 20 MG TABLET 40 MG TUBE (21:32)
[2021-06-03] VITALS (11 sets, daily range): BP systolic 94–180; BP diastolic 48–83; PULSE 65–94; RESP 12–18; TEMP 36.3–36.7; O2SAT 92–100
[2021-06-03] MEDS: cefTRIAXone 1,000 MG in SODIUM CHLORIDE 0.9% 100 ML 200 ML IV (00:44)
[2021-06-03 09:09] LABS: Add Manual Diff / Slide Review NO; Basophils Absolute Auto 0 /uL (0-100); Basophils Percent Auto 0.6 % (0-2); Eosinophils Absolute Auto 200 /uL (0-450); Eosinophils Percent Auto 3.4 % (2-4); Hemoglobin 8.7 g/dL (13.5-17.5); Lymphocytes Absolute Auto 1000 /uL (1100-4500); Lymphocytes Percent Auto 18.7 % (25-40); Mean Corpuscular HGB Conc 32.1 % (30-36); Mean Corpuscular Hemoglobin 25.7 PG (26-34); Mean Corpuscular Volume 80.1 fL (80-100); Monocytes Absolute Auto 400 /uL (0-900); Neutrophils Absolute Auto 3600 /uL (1500-7000); Neutrophils Percent Auto 69.3 % (50-75); Platelet Count 287 X10^3/uL (150-400); Red Blood Cell Count 3.37 X10^6/uL (4.5-5.9); Red Cell Distribution Width 19.2 % (11.6-14.8); White Blood Cell Count 5.3 X10^3/uL (4.5-11.0)
[2021-06-03 09:41] LABS: BUN Creatinine Ratio 26.8 (6-22); Blood Urea Nitrogen 26 mg/dL (9-20); Carbon Dioxide 25 mmol/L (22-32); Chloride 112 mmol/L (98-107); Estimated Glomerular Filt Rate > 60.0 mL/min (>60); Glucose 77 mg/dL (80-110); HEMOLYSIS < 15 (0-50); Potassium 4.5 mmol/L (3.4-5.1); Sodium 145 mmol/L (137-145)
[2021-06-03] MEDS: PANTOPRAZOLE 40 MG VIAL IV (09:44)
[2021-06-03] MEDS: SODIUM CHLORIDE 0.9% FLUSH 10 ML IV (09:44)
[2021-06-03] MEDS: AMLODIPINE 5 MG TABLET 2.5 MG TUBE (09:44)
[2021-06-03] MEDS: LACTATED RINGERS 1,000 ML 42 ML IV ×2 (09:46→14:29)
[2021-06-03] MEDS: DEXTROSE 50 % IN WATER 25 GM/50 ML SYRINGE IV (11:33)
--- NOTE | 2021-06-03 13:47 | PM.CN ---
History of Present Illness Consult details Date Patient Seen: 06/03/21 Time Patient Seen: 13:48 Chief complaint: Rectal bleed, UTI Reason for consult: GI bleed Requesting provider: Melanie Spencer Narrative: Sudden onset of bright red blood in toilet. Recent anemia and GI bleed with hospitalization at [facility]. History is difficult due to limited verbal after a CVA. Meds Home Medications and Allergies Home Medications Medication Instructions Recorded Confirmed Type ASPIRIN (Aspirin Low Dose) mg PO #0 03/14/08 History atorvastatin 10 mg tablet (Lipitor) #0 11/18/16 History cephalexin 500 mg capsule 500 mg PO TID #21 cap 11/18/16 Rx hydrocodone 10 mg-acetaminophen #0 11/18/16 History 325 mg tablet Allergies Allergy/AdvReac Type Severity Reaction Status Date / Time No Known Drug Allergies Allergy Verified 06/01/21 19:59 Review of Systems Review of Systems ROS: Yes unobtainable due to mental status Exam Vital Signs (past 8 hours): - 06/03/21 06:00 06/03/21 07:40 06/03/21 09:00 Temperature 97.3 F L 97.9 F Pulse Rate 92 H 94 H Respiratory Rate 18 16 Blood Pressure 178/83 H 180/82 H Pulse Oximetry 97 100 100 06/03/21 09:08 Temperature Pulse Rate Respiratory Rate Blood Pressure Pulse Oximetry 97 Oxygen Delivery Method Room Air Oxygen Flow Rate 0 Const General: cooperative and frail appearing Limitations: physical limitations [facility] Head: normocephalic and atraumatic Eyes Sclera: sclerae normal Neck Neck: trachea midline Cardio Rate: tachycardic Rhythm: abnormal rhythm Neuro General: patient awake Psych Judgment: limited Objective Labs Result Diagrams: 06/03/21 08:50 06/03/21 08:50 Labs: Laboratory Results - last 24 hr 06/03/21 06/03/21 08:50 08:50 WBC 5.3 RBC 3.37 L Hgb 8.7 L Hct 27.0 L MCV 80.1 MCH 25.7 L MCHC 32.1 RDW 19.2 H Plt Count 287 Neut % (Auto) 69.3 Lymph % (Auto) 18.7 L [place] % (Auto) 8.0 Eos % (Auto) 3.4 Baso % (Auto) 0.6 Neut # (Auto) 3600 Lymph # (Auto) 1000 L [place] # (Auto) 400 Eos # (Auto) 200 Baso # (Auto) 0 Sodium 145 Potassium 4.5 Chloride 112 H Carbon Dioxide 25 BUN 26 H Creatinine 0.97 Estimated GFR > 60.0 BUN/Creatinine Ratio 26.8 H Glucose 77 L Calcium 9.0 PFSH Medical History (Updated 06/01/21 @ 23:46 by TRISHA Sorenson) Aphasia as late effect of stroke History of stroke within last year Surgical History (Updated 06/02/21 @ 01:20 by TRISHA Sorenson) S/P percutaneous endoscopic gastrostomy (PEG) tube placement Family History (Updated 06/02/21 @ 01:05 by TRISHA Sorenson) Mother Myocardial infarction Father Alcoholism Social History marital status: unmarried,living together household members: significant other and caregiver lives independently: Yes caregiver/support person: Yes 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 Plan: EGD and colonoscopy. On PPI COVID-19 COVID-19 status: Positive Time Spent With Patient Critical Care time: I spent a total of [] minutes of critical care time on this patient's care today; this time is exclusive of procedural time.
--- NOTE | 2021-06-03 14:13 | SUR.OPER ---
COVID PRECAUTIONS TAKEN BY SURGICAL TEAM OUTLINED PER CDC GUIDELINES. CONSENTS OBTAINED FROM PATIENT BY A NOD OF THE HEAD HE IS APHASIC
--- NOTE | 2021-06-03 14:35 | SUR.PHASEI ---
EGD\Colonoscopy complete with no complications; gastritis noted and hemorrhoids noted; patient remains in OR suite number 4 due to COVID precautions. PACU nurse assuming care from OR nurse. Anesthesia remains at bedside. VSS.
--- NOTE | 2021-06-03 14:46 | SUR.PHASEI ---
Patient still resting with eyes closed but responsive to verbal; able to squeeze hand of nurse and wiggle toes when asked. No distress noted; vss. Abdomen remains soft and non-distended. Able to maintain room air saturation at 99%.
--- NOTE | 2021-06-03 14:56 | PM.OP.ENDO ---
Operative Date/Time/Diagnoses Date of procedure: 06/03/21 Time of procedure: 14:56 Pre-op diagnosis: GI bleed Post-op diagnosis: same Procedure & Clinicians Study performed: EGD with MAC Same procedure as scheduled: Yes Indications: GI bleed Surgeon: Akila Long Procedure Notes SCOAP/Timeout: Done Procedure in detail: Prep diagnosis: GI bleed and anemia Postop diagnosis: Same Operative procedure: EGD with MAC Surgeon: Deyanira Long MD Findings: Severe gastritis throughout the stomach. Duodenitis as well. No active bleeding or overt ulcers. Peg tube in good position Procedure: Patient is placed in a supine position. Scope inserted into the esophagus and advanced into the stomach. Insufflation allowed me to identify the pylorus intubated into the duodenum. Insufflation and extraction of the scope including a retroflex have the above findings. Impression: Severe gastritis and duodenitis. Esophagus is normal. No active bleeding. Plan: Proceed with colonoscopy. Continue b.i.d. PPI eyes, add Carafate daily through the PEG tube Findings: gastritis and other findings (Duodenitis) Specimen(s): none sent Complications: none Post-procedure Recommendations: Continue medication(s) Plan for aftercare: Advance diet as tolerated okay to discharge later today if medically stable Follow up: as needed Disposition: Acute Care
--- NOTE | 2021-06-03 14:58 | P.OP.ENDO_ITS ---
Operative Date/Time/Diagnoses Date of procedure: 06/03/21 Time of procedure: 14:58 Post-op diagnosis: same Procedure & Clinicians Study performed: Colonoscopy with MAC Same procedure as scheduled: Yes Indications: GI bleed and severe anemia Surgeon: Akila Long Procedure Notes SCOAP/Timeout: Done Procedure in detail: Prep diagnosis: GI bleed and anemia Postop diagnosis: Same Operative procedure: Colonoscopy with MAC Surgeon: Deyanira Long MD Findings: Enlarged scattered diverticuli through the sigmoid colon. Large grade 3 hemorrhoids without active bleeding. No polyps, no masses Procedure: Patient placed in a lateral position. Rectal exam is performed showing decreased tone no masses. Scope was inserted into the rectum and advanced to ileocecal valve with minimal difficulty. Insufflation and extraction of the scope and the above findings. Including retroflex in the rectum. Impression: No active source of bleeding other than is grade 3 hemorrhoids which likely produce the bright red blood on the toilet prior to admission. Anemia otherwise can be explained by the severity of the gastritis and duodenitis seen on EGD. Plan: Repeat colonoscopy in 10 years unless otherwise indicated a change in [facility] history or clinical condition. Findings: internal hemorrhoids Specimen(s): none sent Complications: none Post-procedure Recommendations: Colonscopy in 10 years Follow up: as needed Disposition: Acute Care
--- NOTE | 2021-06-03 15:25 | P.DS_ITS ---
History of Present Illness History of Present Illness Date Patient Seen: 06/03/21 Time Patient Seen: 15:28 Chief complaint: Rectal bleed, UTI Narrative: Charlie Francis is a 69-year-old male with a history of multiple strokes the 1st 1 occurring approximately 20 years ago followed by a series of 5 strokes that began in January of 2020 with 3 in 6 session over 2 week.? Followed by another CVA in July of 2020 and the last 1 occurring in March of 2021.? He was seen at [facility] for a GI bleed and admitted right before his last stroke.? Per the discharge summary of March 30, 2021, the patient was transfused 3 units of PRBC.? He underwent upper and lower endoscopy and they did not find any evidence of bleeding but he had mild duodenitis.? He was also noted to have watershed infarcts full leave to be secondary to the blood loss.? The patient has a past history of diabetes type 2 and when he was at [facility] his hemoglobin a was not see was 4.5 likely due to the dietary changes he has had to undergo. Patient is unable to provide a history as he is aphasic with significant left- sided deficits.? Information is provided by review of [facility] records and discussion with his significant other Cristina Crain who is also his DPOA.? He contracted breakthrough COVID-19 10 days ago and continues to test positive.? Apparently his significant other and members of his family in the [facility] contracted COVID, likely over the holidays, members are now asymtomatic and are testing negative per Cristina. He had jes blood in this morning's bowel movement in a photo Cristina showed to the ED provider. She also noted he was weaker in his lower extremities. They have multiple physical therapists, occupational and speech therapists providing services to him as well as famly members. Patient can communicate through yes or no questions, nursing noted Cristina was able to communicate at a higher level with him. Patient's vital signs were stable as he is afebrile, blood pressure 102/62, heart rate 89, respiratory rate 17, oxygen saturation of 99% on room air he weighs 71.6 kg.? His hemoglobin and hematocrit on presentation was 4.9 in 15.8 respectively, platelet count is 386, sodium 144, potassium 5.5, chloride 110, BUN 45, glucose 119, alk-phos 136, U/A is positive for a UTI, COVID-19 PCR is positive. Discharge Providers Provider Date of admission: 06/01/21 20:27 Discharge Date: 06/03/21 Primary care physician: Tessie Law MD Consults: 06/01/21 23:32 Consult to Physician Routine Comment: Consulting Provider: Akila Long Reason for consultation: GI hemmorhage Has provider been notified: Yes 06/01/21 23:47 Consult to Dietitian, Adult Routine Comment: Reason For Exam: Tube feedings Consult to Occupational Therapy Evaluate & Treat Comment: Hx CVA 01/2020 residual deficits Physician Instructions: Evaluate and treat Consult to Physical Therapy Evaluate & Treat Comment: Hx CVA 01/2020 residual deficits Physician Instructions: Evaluate and Treat Discharge provider: Melanie Spencer MD Summary Hospital Course Discharge Diagnosis: 1. Acute blood loss anemia, status post 3 units transfusion 2. Severe gastritis, and duodenitis, no active bleeding 3. Grade 3 hemorrhoids no active bleeding 4. Aphasia 5. History of multiple strokes Hospital Course: Patient was admitted to the hospital for treatment of symptomatic anemia, patient's hemoglobin was 5 and hematocrit 14 on admission. He required 3 units of packed RBCs. Hemoglobin improved to 8 over 28. Patient underwent upper endoscopy. Revealed severe gastritis and duodenitis with no evidence of active bleeding. Grade 3 hemorrhoids were found as well on colonoscopy with no evidence of active bleeding. The patient did develop some hypoglycemia, likely related to his NPO status/holding tube feeds for the procedure. He also was treated with antibiotics for a urinary tract infection. The patient has previously been prescribed PPI ice to be use through the PEG tube. According to his DPOA that was unsuccessful. As such the patient will be prescribed oral Carafate, he will be given an oral H2 graham that will be useful through the feeding tube, the patient will also be given a prescription for a liquid PPI which will require prior authorization to be used subsequently. At this time he is in no acute distress. Patient is deemed appropriate for discharge, arrangements will be made for him to discharge home. Status at Discharge Cognitive/behavioral status at discharge: at baseline, oriented Functional status at discharge: uses cane/walker Overall status at discharge: patient is progressing back to baseline Exam Vital Signs (past 8 hours): - 06/03/21 07:40 06/03/21 09:00 06/03/21 09:08 Temperature 97.9 F Pulse Rate 94 H Respiratory Rate 16 Blood Pressure 180/82 H Pulse Oximetry 100 100 97 06/03/21 14:38 06/03/21 14:39 06/03/21 14:42 Temperature Pulse Rate 67 66 65 Respiratory Rate 17 17 15 Blood Pressure 94/48 L 98/51 L 107/53 L Pulse Oximetry 99 99 99 06/03/21 14:47 Temperature Pulse Rate 68 Respiratory Rate 12 Blood Pressure 117/54 L Pulse Oximetry 99 Oxygen Delivery Method Room Air Oxygen Flow Rate 2 Narrative Exam Narrative: Pleasant male in no obvious distress Resp Other: Lungs clear to auscultation Cardio Other: Cardiac exam: Regular rate and rhythm normal S1-S2 GI Other: Abdomen: Soft and nontender, nondistended Extrem Other: No edema Objective Labs Result Diagrams: 06/03/21 08:50 06/03/21 08:50 Labs: Laboratory Results - last 24 hr 06/03/21 06/03/21 08:50 08:50 WBC 5.3 RBC 3.37 L Hgb 8.7 L Hct 27.0 L MCV 80.1 MCH 25.7 L MCHC 32.1 RDW 19.2 H Plt Count 287 Neut % (Auto) 69.3 Lymph % (Auto) 18.7 L Nelson % (Auto) 8.0 Eos % (Auto) 3.4 Baso % (Auto) 0.6 Neut # (Auto) 3600 Lymph # (Auto) 1000 L Nelson # (Auto) 400 Eos # (Auto) 200 Baso # (Auto) 0 Sodium 145 Potassium 4.5 Chloride 112 H Carbon Dioxide 25 BUN 26 H Creatinine 0.97 Estimated GFR > 60.0 BUN/Creatinine Ratio 26.8 H Glucose 77 L Calcium 9.0 PFSH Medical History (Updated 06/01/21 @ 23:46 by TRISHA Sorenson) Aphasia as late effect of stroke History of stroke within last year Surgical History (Updated 06/02/21 @ 01:20 by TRISHA Sorenson) S/P percutaneous endoscopic gastrostomy (PEG) tube placement Family History (Updated 06/02/21 @ 01:05 by TIRSHA Sorenson) Mother Myocardial infarction Father Alcoholism Social History (Updated 06/02/21 @ 01:07 by TRISHA Sorenson) marital status: unmarried,living together household members: significant other and caregiver lives independently: Yes caregiver/support person: Yes 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 Severe gastritis, and duodenitis, no active bleeding 3. Grade 3 hemorrhoids no active bleeding 4. Aphasia 5. History of multiple strokes Plan of Treatment: Discharge home Medications as prescribed Discharge Plan Discharge Plan Patient Disposition: Home Discharge orders & Medications Prescriptions: New amlodipine [Norvasc] 5 mg Tablet 2.5 mg TUBE DAILY Qty: 30 0RF sucralfate [Carafate] 100 mg/mL suspension 10 ml PO QID Qty: 400 0RF Rx Instructions: swish in mouth and swallow; use after food/drink pantoprazole [Protonix] [address] for susp in packet 40 mg PO BID 30 Days 0RF famotidine [Zantac-360 (famotidine)] 20 mg tablet 20 mg feeding tube BID 42 Days Qty: 84 0RF Continued atorvastatin [Lipitor] 10 mg tablet Qty: 0 0RF hydrocodone-acetaminophen 10-325 mg tablet Qty: 0 0RF cephalexin 500 MG capsule 500 mg PO TID Qty: 21 0RF Discontinued ASPIRIN (Aspirin Low Dose) PO Qty: 0 0RF Follow up/Referrals: Tessie Law MD [Primary Care Provider] - Discharge Data Primary Care Provider: Tessie Law Quality VTE Deep Vein Thrombosis/Pulmonary Embolism Present on Admission: No
--- NOTE | 2021-06-03 15:36 | CM.DPC ---
DCP Cont: Dr. Spencer came by the care management office indicating that patient is ready to discharge today, will need to have someone pick him up. Called patient's DPOA, Cristina Crain. Confirmed with her that patient does have caregivers in the home through [employer]. She indicated, she can pick him up at ER entrance at approximately 1700, but has questions about his loosing blood. Patient did have his EGD, and had transfusions while here at the hospital since he became anemic. Let Cristina know that this media planner / buyer can have Dr. Spencer give her a call. Spoke to Dr. Spencer and gave her Cristina's phone number, and she will call her. Cristina's main concerns are where is the bleed coming from, and will it continue? Let nurse, Veronica, know that Cristina will plan on picking up patient at 1700 at the ER entrance. DC orders are pending. P: Patient is go to home today, no home health needed, according to hospitalist. Laxmi Carr RN/[facility]
--- NOTE | 2021-06-03 17:41 | PC.NURSE ---
Discharged by provider. Education provided to patient and Significant Other/DPOA. DPOA verbalized she will address liquid omeprazole with PCP and will give zantac or protonix to pt but not both. Pt escorted out via w/c with all personal belongings. Pt left in stable condition.
== END 2021-06-03 17:30 | disposition home or self-care (01) | DRG 377 ==
LOC: ED 18:24 → AC 20:28
PROVIDERS: Emergency Medicine; Internal Medicine; Surgery; Admitting Provider Nurse Practitioner Family; Emergency Provider Emergency Medicine; PCP Family Medicine; Referring Provider Emergency Medicine; Visit Provider Nurse Practitioner Family
PROC: 0DJ08ZZ Inspection of Upper Intestinal Tract, Via Natural or Artificial Opening Endoscopic (ICD-10-PCS; CPT 43235; principal; 2021-06-03 09:00)
PROC: 0DJD8ZZ Inspection of Lower Intestinal Tract, Via Natural or Artificial Opening Endoscopic (ICD-10-PCS; CPT 45378; 2021-06-03 09:00)
DX: K29.71 Gastritis, unspecified, with bleeding (principal); U07.1 COVID-19; N39.0 Urinary tract infection, site not specified; D62 Acute posthemorrhagic anemia; K29.81 Duodenitis with bleeding; I69.920 Aphasia following unspecified cerebrovascular disease; K64.2 Third degree hemorrhoids; I10 Essential (primary) hypertension; E78.5 Hyperlipidemia, unspecified; E11.649 Type 2 diabetes mellitus with hypoglycemia without coma; F17.200 Nicotine dependence, unspecified, uncomplicated
CPT/HCPCS: 36415; 36430; 43235; 45378; 51701; 80048; 80053; 81003; 81015; 82962; 85025; 85027; 85610; 85730; 86850; 86900; 86901; 87077; 87086; 87186; 87635; 94760; 94762; 96374; 97162; 99232; 99284; C9803; P9016; C9113; J0696; J1815

== ENCOUNTER → 2021-09-08 13:44 | Outpatient (CLI) | payer MEDICARE, MEDICAID, OTHER, SELFPAY ==
[2021-06-01 21:00] VITALS: BMI 22.7
--- NOTE | 2021-09-08 13:54 | DI.RAD.S_ITS ---
PROCEDURE: XR CHEST 2V INDICATIONS: tachycardia TECHNIQUE: 2 views of the chest were acquired. COMPARISON: None. FINDINGS: Surgical changes and devices: Electronic device is seen projecting over the chest on lateral view, possibly on the upper arm. Lungs and pleura: Lungs are clear. No pleural effusions or pneumothorax. Mediastinum: Mediastinal contours are normal. Heart size is normal. Bones and chest wall: No suspicious bony abnormalities. Soft tissues appear unremarkable. IMPRESSION: No acute cardiopulmonary abnormality. Dictated by: Mikal Cortes M.D. on 09/08/2021 at 15:03 Approved by: Mikal Cortes M.D. on 09/08/2021 at 15:11
[2021-09-08 14:59] LABS: Add Manual Diff / Slide Review NO; Basophils Absolute Auto 0 /uL (0-100); Basophils Percent Auto 0.5 % (0-2); Eosinophils Absolute Auto 100 /uL (0-450); Eosinophils Percent Auto 0.7 % (2-4); Hematocrit 24.8 % (41-53); Lymphocytes Absolute Auto 1500 /uL (1100-4500); Lymphocytes Percent Auto 15.9 % (25-40); Mean Corpuscular HGB Conc 32.1 % (30-36); Mean Corpuscular Hemoglobin 25.6 PG (26-34); Mean Corpuscular Volume 79.8 fL (80-100); Monocytes Absolute Auto 500 /uL (0-900); Neutrophils Absolute Auto 7200 /uL (1500-7000); Neutrophils Percent Auto 77.9 % (50-75); Platelet Count 390 X10^3/uL (150-400); Red Blood Cell Count 3.11 X10^6/uL (4.5-5.9); Red Cell Distribution Width 16.5 % (11.6-14.8); White Blood Cell Count 9.2 X10^3/uL (4.5-11.0)
== END ==
LOC: LAB 13:49 → RAD 13:51
PROVIDERS: PCP Family Medicine; Referring Provider Physician Assistant; Visit Provider Physician Assistant
DX: R11.10 Vomiting, unspecified (principal); R00.0 Tachycardia, unspecified
CPT/HCPCS: 36415; 71046; 85025

== ENCOUNTER 2021-11-02 14:00 | Inpatient (IN) | payer MEDICARE, MEDICAID, OTHER, SELFPAY ==
[2021-06-01 21:00] VITALS: BMI 22.7
[2021-11-02] VITALS (97 sets, daily range): BP systolic 63–134; BP diastolic 45–67; PULSE 83–119; RESP 11–24; TEMP 36.3–37.3; O2SAT 96–100; BMI 23.6
--- NOTE | 2021-11-02 14:06 | DI.RAD.S_ITS ---
PROCEDURE: XR CHEST 1V INDICATIONS: Trauma, fall, preoperative clearance TECHNIQUE: One view of the chest was acquired. COMPARISON: None. FINDINGS: Surgical changes and devices: None. Lungs and pleura: Lungs are clear. No pleural effusions or pneumothorax. Mediastinum: Mediastinal contours appear normal. Heart size is normal. Bones and chest wall: No suspicious bony lesions. Overlying soft tissues appear unremarkable. IMPRESSION: No acute cardiopulmonary process demonstrated radiographically. Dictated by: Alfred Mendieta M.D. on 11/02/2021 at 15:15 Approved by: Alfred Mendieta M.D. on 11/02/2021 at 15:15
--- NOTE | 2021-11-02 14:18 | ED.WEAKNESS ---
HPI - Weakness General Chief complaint: Weakness Stated complaint: Weakness, Low BP Time Seen by Provider: 11/02/21 14:04 Source: EMS Mode of arrival: EMS History of Present Illness HPI Narrative: 71-year-old male nonverbal patient with history of stroke is nonverbal at baseline with history of hypertension, hyperlipidemia and prior GI bleed from gastritis presents by EMS for evaluation of increased generalized weakness per the family over the course of the day. He lives at home with family and they state that he has been unable to assist in any activities or transfers at home which is atypical for him. At baseline he does not communicate verbally but will respond nonverbally. There is very little information that comes through the medics from the family but there is no report of fever, vomiting, dark stools, change in medications or other. He was initially found essentially unresponsive within on measurable blood pressure, he was given IV fluids and put on an epi drip at between 2-5 mics per minute and route, on his arrival his blood pressures in the 70s. Related Data Home Medications Medication Instructions Recorded Confirmed atorvastatin 10 mg tablet (Lipitor) ##0 11/18/16 hydrocodone 10 mg-acetaminophen ##0 11/18/16 325 mg tablet Previous Rx's Medication Instructions Recorded cephalexin 500 mg capsule 500 mg PO TID #21 caps 11/18/16 amlodipine 5 mg tablet (Norvasc) 2.5 mg TUBE DAILY #30 tabs 06/03/21 sucralfate 100 mg/mL oral 10 ml PO QID #400 mL 06/03/21 suspension (Carafate) Allergies Allergy/AdvReac Type Severity Reaction Status Date / Time No Known Drug Allergies Allergy Verified 11/02/21 14:33 Review of Systems Review of Systems ROS Unobtainable: Unobtainable due to medical condition Patient History Medical History Aphasia as late effect of stroke History of stroke within last year Surgical History S/P percutaneous endoscopic gastrostomy (PEG) tube placement Family History Mother Myocardial infarction Father Alcoholism Social History marital status: unmarried,living together household members: significant other and caregiver lives independently: Yes caregiver/support person: Yes 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 Obviously chronically ill, responding nonverbally HEAD: Atraumatic. Normocephalic. EYES: Pupils equal round and reactive. Pale conjunctiva Extraocular motions intact. No scleral icterus. No injection or drainage. ENT: Nose without bleeding, purulent drainage. Throat without erythema, tonsillar hypertrophy or exudate. Airway patent. NECK: Trachea midline. Non tender CARDIOVASCULAR: Tachycardic but regular rhythm without murmurs, gallops, or rubs. RESPIRATORY: Clear to auscultation. Breath sounds equal bilaterally. No wheezes, rales, or rhonchi. GASTROINTESTINAL: Abdomen soft, non-tender, nondistended. Peg tube draining EXTREMITIES: No edema or joint tenderness. BACK: Nontender without deformity or crepitance. No flank tenderness. NEURO: Patient able to follow commands, blinks to respond, not his head, significant right-sided weakness due to prior stroke SKIN: No rash or erythema of visible areas Initial Vital Signs Initial Vital Signs: Vital Signs Temperature 98.3 F 11/02/21 14:06 Pulse Rate 118 H 11/02/21 14:06 Respiratory Rate 24 11/02/21 14:06 Blood Pressure 69/47 L 11/02/21 14:06 Pulse Oximetry 100 11/02/21 14:06 Oxygen Delivery Method 11/02/21 14:06 Procedures Central Line Placement Right IJ: Time Out Performed: Yes Patient Placed on Monitor/Pulse Ox: Yes MD Prep: mask, gown and gloves Central Line Prep: Chlorhexidine scrub and sterile drapes applied Local Anesthetic: lidocaine 1% Amount of anesthesia used (mL): 3 Ultrasound Used for Placement: Yes Central Line Lumen Inserted: triple Post Procedure: good blood return, all ports aspirated, flushed, capped and sterile dressing applied Post Procedure X-Ray: tip of catheter in good position and no pneumothorax seen Patient Tolerated Procedure: Well Complications: none Course Orders Ordered: ED Orders 11/02/21 14:06 XR chest 1V Stat 11/02/21 14:07 EKG-12 Lead Stat 11/02/21 14:25 Blood Culture Stat COVID19 -Nasal RAPID/Pre-Proc Stat Complete Blood Count AUTO DIFF Stat Comprehensive Metabolic Panel Stat Lactate (Lactic Acid) Stat Packed Cells Stat Prothrombin Time INR Stat Troponin & CK Cardiac Panel Stat Type and Screen Stat 11/02/21 14:31 Urinalysis and Microscopic Stat Urine Culture Stat 11/02/21 16:42 CBC Auto Diff [Complete Blood Count AUTO DIFF] Stat CMP [Comprehensive Metabolic Panel] Stat Lactate (Lactic Acid) Stat 11/02/21 20:15 Basic Metabolic Panel Stat Complete Blood Count AUTO DIFF Stat Discontinued Medications Furosemide (Furosemide 40 Mg/4 Ml Vial) 40 mg IV NOW ONE Stop: 11/02/21 18:29 Last Admin: 11/02/21 18:36 Dose: 40 mg Documented By: DONATO Ceftriaxone Sodium 2,000 mg/ (Sodium Chloride) 100 mls @ 200 mls/hr IV NOW ONE Stop: 11/02/21 19:05 Last Infusion: 11/02/21 20:08 Dose: 0 mls/hr Documented By: Admin: 11/02/21 19:27 Dose: 200 mls/hr Documented By: AT Pantoprazole Sodium (Pantoprazole 40 Mg Vial) 80 mg IV NOW ONE Stop: 11/02/21 14:05 Last Admin: 11/02/21 14:23 Dose: 80 mg Documented By: DONATO(2) Vital Signs Vital signs: Vital Signs - 8 hr 11/02/21 14:06 11/02/21 14:06 11/02/21 14:10 Temperature 98.3 F Pulse Rate 118 H 118 H 115 H Respiratory Rate 24 21 22 Blood Pressure 69/47 L Pulse Oximetry 100 99 100 Oxygen Delivery Method Room Air 11/02/21 14:11 11/02/21 14:11 11/02/21 14:15 Temperature Pulse Rate 117 H 117 H Respiratory Rate 22 20 Blood Pressure 68/48 L Pulse Oximetry 100 100 Oxygen Delivery Method 11/02/21 15:28 11/02/21 15:43 11/02/21 14:20 Temperature 98.1 F 98.1 F Pulse Rate 110 H 107 H 116 H Respiratory Rate 19 20 17 Blood Pressure 70/48 L 77/52 L Pulse Oximetry 100 Oxygen Delivery Method 11/02/21 14:21 11/02/21 14:21 11/02/21 14:25 Temperature Pulse Rate 117 H Respiratory Rate 21 Blood Pressure 82/55 L 66/47 L Pulse Oximetry 100 Oxygen Delivery Method 11/02/21 14:25 11/02/21 14:30 11/02/21 14:30 Temperature 97.3 F L Pulse Rate 119 H 116 H Respiratory Rate 19 Blood Pressure 71/49 L Pulse Oximetry 98 98 Oxygen Delivery Method Room Air 11/02/21 14:35 11/02/21 14:35 11/02/21 14:40 Temperature 97.7 F Pulse Rate 114 H Respiratory Rate 19 Blood Pressure 65/45 L 63/45 L Pulse Oximetry 99 Oxygen Delivery Method 11/02/21 14:40 11/02/21 14:45 11/02/21 14:45 Temperature 97.9 F 98.1 F Pulse Rate 114 H 113 H Respiratory Rate 19 17 Blood Pressure 73/49 L Pulse Oximetry 98 99 Oxygen Delivery Method 11/02/21 14:50 11/02/21 14:50 11/02/21 14:55 Temperature 98.1 F Pulse Rate 113 H Respiratory Rate 17 Blood Pressure 72/50 L 76/50 L Pulse Oximetry 100 Oxygen Delivery Method 11/02/21 14:55 11/02/21 15:00 11/02/21 15:00 Temperature 98.2 F 98.2 F Pulse Rate 114 H 113 H Respiratory Rate 18 17 Blood Pressure 75/51 L Pulse Oximetry 100 100 Oxygen Delivery Method Room Air 11/02/21 16:06 11/02/21 16:17 11/02/21 16:34 Temperature 98.6 F 98.6 F 98.6 F Pulse Rate 101 H 101 H 98 H Respiratory Rate 17 23 14 Blood Pressure 91/56 L 80/52 L 81/53 L Pulse Oximetry Oxygen Delivery Method 11/02/21 16:47 11/02/21 17:08 11/02/21 15:05 Temperature 98.4 F 98.4 F 98.4 F Pulse Rate 97 H 93 H 112 H Respiratory Rate 20 17 16 Blood Pressure 81/62 L 84/51 L Pulse Oximetry 100 Oxygen Delivery Method 11/02/21 15:10 11/02/21 15:10 11/02/21 15:15 Temperature 98.4 F Pulse Rate 111 H Respiratory Rate 17 Blood Pressure 75/50 L 78/52 L Pulse Oximetry 100 Oxygen Delivery Method Room Air 11/02/21 15:15 11/02/21 15:20 11/02/21 15:25 Temperature 98.4 F 98.4 F 98.4 F Pulse Rate 110 H 111 H 110 H Respiratory Rate 18 17 20 Blood Pressure Pulse Oximetry 100 100 100 Oxygen Delivery Method 11/02/21 15:26 11/02/21 15:26 11/02/21 15:30 Temperature 98.4 F 98.4 F Pulse Rate 110 H 109 H Respiratory Rate 19 18 Blood Pressure 70/48 L Pulse Oximetry 100 100 Oxygen Delivery Method Room Air 11/02/21 15:31 11/02/21 15:31 11/02/21 15:35 Temperature 98.4 F Pulse Rate 109 H Respiratory Rate 18 Blood Pressure 87/52 L 76/50 L Pulse Oximetry 100 Oxygen Delivery Method 11/02/21 15:35 11/02/21 15:40 11/02/21 15:40 Temperature 98.4 F 98.4 F Pulse Rate 108 H 107 H Respiratory Rate 17 15 Blood Pressure 77/52 L Pulse Oximetry 100 100 Oxygen Delivery Method 11/02/21 15:45 11/02/21 15:55 11/02/21 15:55 Temperature 98.4 F 98.4 F Pulse Rate 111 H 107 H Respiratory Rate 24 19 Blood Pressure 97/53 L Pulse Oximetry 99 100 Oxygen Delivery Method 11/02/21 16:00 11/02/21 16:00 11/02/21 16:05 Temperature 98.4 F Pulse Rate 102 H Respiratory Rate 17 Blood Pressure 89/55 L 91/56 L Pulse Oximetry 100 Oxygen Delivery Method Room Air 11/02/21 16:05 11/02/21 16:10 11/02/21 16:10 Temperature 98.4 F 98.6 F Pulse Rate 101 H 101 H Respiratory Rate 17 17 Blood Pressure 86/50 L Pulse Oximetry 100 100 Oxygen Delivery Method 11/02/21 16:15 11/02/21 16:15 11/02/21 16:20 Temperature 98.6 F Pulse Rate 99 H Respiratory Rate 17 Blood Pressure 80/52 L 98/57 L Pulse Oximetry 100 Oxygen Delivery Method 11/02/21 16:20 11/02/21 16:25 11/02/21 16:25 Temperature 98.6 F 98.6 F Pulse Rate 103 H 100 H Respiratory Rate 18 17 Blood Pressure 86/54 L Pulse Oximetry 100 100 Oxygen Delivery Method 11/02/21 16:30 11/02/21 16:35 11/02/21 16:40 Temperature 98.4 F Pulse Rate 98 H Respiratory Rate 17 Blood Pressure 83/52 L 77/50 L Pulse Oximetry 100 Oxygen Delivery Method 11/02/21 16:40 11/02/21 16:45 11/02/21 16:46 Temperature 98.4 F 98.4 F Pulse Rate 96 H 95 H Respiratory Rate 17 18 Blood Pressure 81/62 L Pulse Oximetry 100 100 Oxygen Delivery Method 11/02/21 16:46 11/02/21 16:50 11/02/21 16:51 Temperature 98.4 F 98.4 F Pulse Rate 96 H 95 H Respiratory Rate 20 17 Blood Pressure 98/58 L Pulse Oximetry 100 99 Oxygen Delivery Method 11/02/21 16:51 11/02/21 16:55 11/02/21 16:55 Temperature 98.4 F 98.4 F Pulse Rate 93 H 92 H Respiratory Rate 16 17 Blood Pressure 87/52 L Pulse Oximetry 100 100 Oxygen Delivery Method 11/02/21 17:00 11/02/21 17:00 11/02/21 17:05 Temperature 98.4 F Pulse Rate 91 H Respiratory Rate 17 Blood Pressure 86/51 L 84/51 L Pulse Oximetry 100 Oxygen Delivery Method 11/02/21 17:05 11/02/21 17:24 11/02/21 17:41 Temperature 98.4 F 98.6 F 98.6 F Pulse Rate 91 H 88 85 Respiratory Rate 16 19 16 Blood Pressure 81/52 L 91/57 L Pulse Oximetry 100 Oxygen Delivery Method 11/02/21 17:48 11/02/21 17:10 11/02/21 17:10 Temperature 98.8 F 98.6 F Pulse Rate 83 93 H Respiratory Rate 16 18 Blood Pressure 89/56 L 96/56 L Pulse Oximetry 100 Oxygen Delivery Method Room Air 11/02/21 17:15 11/02/21 17:15 11/02/21 17:20 Temperature 98.6 F Pulse Rate 91 H Respiratory Rate 12 Blood Pressure 83/52 L 81/52 L Pulse Oximetry 100 Oxygen Delivery Method 11/02/21 17:20 11/02/21 17:24 11/02/21 17:25 Temperature 98.6 F 98.6 F Pulse Rate 90 88 Respiratory Rate 16 19 Blood Pressure 78/52 L Pulse Oximetry 100 100 Oxygen Delivery Method 11/02/21 17:25 11/02/21 17:30 11/02/21 17:30 Temperature 98.6 F 98.6 F Pulse Rate 88 87 Respiratory Rate 18 18 Blood Pressure 75/52 L Pulse Oximetry 100 100 Oxygen Delivery Method Room Air 11/02/21 17:35 11/02/21 17:35 11/02/21 18:20 Temperature 98.6 F 98.8 F Pulse Rate 87 89 Respiratory Rate 18 16 Blood Pressure 80/50 L 82/53 L Pulse Oximetry 100 Oxygen Delivery Method Room Air 11/02/21 17:40 11/02/21 17:40 11/02/21 17:45 Temperature 98.6 F Pulse Rate 86 Respiratory Rate 18 Blood Pressure 91/57 L 89/56 L Pulse Oximetry 100 Oxygen Delivery Method 11/02/21 17:45 11/02/21 17:50 11/02/21 17:50 Temperature 98.6 F 98.8 F Pulse Rate 84 85 Respiratory Rate 11 L 17 Blood Pressure 87/53 L Pulse Oximetry 100 100 Oxygen Delivery Method 11/02/21 17:55 11/02/21 17:55 11/02/21 18:00 Temperature 98.8 F Pulse Rate 93 H Respiratory Rate 23 Blood Pressure 96/59 L 102/57 L Pulse Oximetry 100 Oxygen Delivery Method 11/02/21 18:00 11/02/21 18:05 11/02/21 18:05 Temperature 98.8 F 98.8 F Pulse Rate 89 89 Respiratory Rate 18 20 Blood Pressure 89/55 L Pulse Oximetry 99 99 Oxygen Delivery Method 11/02/21 18:10 11/02/21 18:10 11/02/21 18:15 Temperature 98.8 F Pulse Rate 87 Respiratory Rate 18 Blood Pressure 83/50 L 82/53 L Pulse Oximetry 99 Oxygen Delivery Method 11/02/21 18:15 11/02/21 18:20 11/02/21 18:20 Temperature 98.8 F 98.8 F Pulse Rate 84 89 Respiratory Rate 20 20 Blood Pressure 94/64 Pulse Oximetry 100 99 Oxygen Delivery Method 11/02/21 18:25 11/02/21 18:25 11/02/21 18:30 Temperature 98.8 F Pulse Rate 85 Respiratory Rate 20 Blood Pressure 88/57 L 89/55 L Pulse Oximetry 99 Oxygen Delivery Method Room Air 11/02/21 18:30 11/02/21 18:35 11/02/21 18:35 Temperature 99.0 F 99.0 F Pulse Rate 85 85 Respiratory Rate 20 20 Blood Pressure 89/54 L Pulse Oximetry 98 98 Oxygen Delivery Method 11/02/21 18:40 11/02/21 18:40 11/02/21 18:45 Temperature 99.0 F Pulse Rate 84 Respiratory Rate 17 Blood Pressure 88/54 L 82/51 L Pulse Oximetry 99 Oxygen Delivery Method 11/02/21 18:45 11/02/21 18:50 11/02/21 18:50 Temperature 99.0 F 98.8 F Pulse Rate 84 85 Respiratory Rate 20 19 Blood Pressure 87/50 L Pulse Oximetry 98 99 Oxygen Delivery Method 11/02/21 18:55 11/02/21 18:55 11/02/21 19:00 Temperature 98.8 F Pulse Rate 93 H Respiratory Rate 24 Blood Pressure 94/56 L 92/56 L Pulse Oximetry 99 Oxygen Delivery Method 11/02/21 19:00 11/02/21 19:05 11/02/21 19:05 Temperature 98.8 F 98.8 F Pulse Rate 91 H 90 Respiratory Rate 23 20 Blood Pressure 90/59 L Pulse Oximetry 97 98 Oxygen Delivery Method Room Air 11/02/21 19:10 11/02/21 19:10 11/02/21 19:15 Temperature 98.8 F Pulse Rate 88 Respiratory Rate 19 Blood Pressure 85/55 L 82/52 L Pulse Oximetry 98 Oxygen Delivery Method 11/02/21 19:15 11/02/21 19:20 11/02/21 19:20 Temperature 98.8 F 98.8 F Pulse Rate 87 88 Respiratory Rate 18 20 Blood Pressure 84/57 L Pulse Oximetry 98 98 Oxygen Delivery Method 11/02/21 19:25 11/02/21 19:25 11/02/21 19:30 Temperature 98.8 F Pulse Rate 90 Respiratory Rate 18 Blood Pressure 89/59 L 93/58 L Pulse Oximetry 98 Oxygen Delivery Method 11/02/21 19:30 11/02/21 19:35 11/02/21 19:40 Temperature 98.8 F 98.8 F 98.8 F Pulse Rate 88 89 87 Respiratory Rate 18 18 17 Blood Pressure Pulse Oximetry 97 98 98 Oxygen Delivery Method Room Air 11/02/21 19:45 11/02/21 19:45 11/02/21 19:50 Temperature 98.8 F 98.8 F Pulse Rate 87 89 Respiratory Rate 17 18 Blood Pressure 87/56 L Pulse Oximetry 98 99 Oxygen Delivery Method 11/02/21 19:55 11/02/21 20:00 11/02/21 20:01 Temperature 98.6 F 98.6 F Pulse Rate 94 H 93 H Respiratory Rate 19 21 Blood Pressure 115/67 Pulse Oximetry 99 Oxygen Delivery Method 11/02/21 20:01 11/02/21 20:05 Temperature 98.6 F 98.8 F Pulse Rate 94 H 91 H Respiratory Rate 22 20 Blood Pressure Pulse Oximetry Oxygen Delivery Method MDM - Weakness Lab Data Result diagrams: 11/02/21 16:42 11/02/21 16:42 Labs: Lab Results 11/02/21 11/02/21 11/02/21 Range/Units 14:25 14:25 14:25 WBC 6.8 (4.5-11.0) X10^3/uL RBC 2.14 L (4.5-5.9) X10^6/uL Hgb 4.2 L* (13.5-17.5) g/dL Hct 15.2 L* (41-53) % MCV 70.9 L (80-100) fL MCH 19.8 L (26-34) PG MCHC 28.0 L (30-36) % RDW 18.0 H (11.6-14.8) % Plt Count 279 (150-400) X10^3/uL Neut % (Auto) 84.1 H (50-75) % Lymph % (Auto) 9.1 L (25-40) % [place] % (Auto) 5.6 (3-14) % Eos % (Auto) 0.6 L (2-4) % Baso % (Auto) 0.6 (0-2) % Neut # (Auto) 5700 (7596-5034) /uL Lymph # (Auto) 600 L (1657-2109) /uL [place] # (Auto) 400 (0-900) /uL Eos # (Auto) 0 (0-450) /uL Baso # (Auto) 0 (0-100) /uL RBC Morphology See below Hypochromasia 2+ H Microcytosis 2+ H PT 12.4 (10.1-12.7) SECONDS INR 1.1 (0.9-1.3) Sodium 156 H (137-145) mmol/L Potassium 5.2 H (3.4-5.1) mmol/L Chloride 125 H* (98-107) mmol/L Carbon Dioxide 20 L (22-32) mmol/L BUN 75 H (9-20) mg/dL Creatinine 2.00 H (0.66-1.25) mg/dL Estimated GFR 35 L (>60) mL/min BUN/Creatinine Ratio 37.5 H (6-22) Glucose 193 H (80-110) mg/dL Lactate (0.7-2.1) mmol/L Calcium 8.2 L (8.4-10.2) mg/dL Total Bilirubin 0.4 (0.2-1.3) mg/dL AST 26 (17-59) IU/L ALT 14 (<50) IU/L Alkaline Phosphatase 169 H (38-126) U/L Total Creatine Kinase 21 L (55-170) U/L CK-MB (CK-2) TNP CK-MB (CK-2) Rel Index TNP Troponin I < 0.012 (0.01-0.034) ng/mL Total Protein 7.5 (6.3-8.2) g/dL Albumin 3.9 (3.5-5.0) g/dL Globulin 3.6 (1.7-4.1) g/dL Albumin/Globulin Ratio 1.1 (1.0-2.8) Urine Color Urine Appearance Urine pH (4.5-8.0) Ur Specific [place] (1.000-1.035) Urine Protein (Negative) Urine Glucose (UA) (Negative) g/dL Urine Ketones (NEGATIVE) Urine Occult Blood (Negative) Urine Nitrate (Negative) Urine Bilirubin (NEGATIVE) Urine Urobilinogen (0.2) E.U./dL Ur Leukocyte Esterase (NEGATIVE) Urine RBC (0-5/HPF) Urine WBC (0-5/HPF) Ur Squamous Epith Cells (0-5/HPF) Amorphous Sediment Urine Bacteria (None) Ur Culture Indicated? SARS-CoV-2 (PCR) (Negative) Blood Type Antibody Screen Crossmatch 11/02/21 11/02/21 11/02/21 Range/Units 14:25 14:25 14:25 WBC (4.5-11.0) X10^3/uL RBC (4.5-5.9) X10^6/uL Hgb (13.5-17.5) g/dL Hct (41-53) % MCV (80-100) fL MCH (26-34) PG MCHC (30-36) % RDW (11.6-14.8) % Plt Count (150-400) X10^3/uL Neut % (Auto) (50-75) % Lymph % (Auto) (25-40) % [place] % (Auto) (3-14) % Eos % (Auto) (2-4) % Baso % (Auto) (0-2) % Neut # (Auto) (9442-4768) /uL Lymph # (Auto) (5544-4303) /uL [place] # (Auto) (0-900) /uL Eos # (Auto) (0-450) /uL Baso # (Auto) (0-100) /uL RBC Morphology Hypochromasia Microcytosis PT (10.1-12.7) SECONDS INR (0.9-1.3) Sodium (137-145) mmol/L Potassium (3.4-5.1) mmol/L Chloride (98-107) mmol/L Carbon Dioxide (22-32) mmol/L BUN (9-20) mg/dL Creatinine (0.66-1.25) mg/dL Estimated GFR (>60) mL/min BUN/Creatinine Ratio (6-22) Glucose (80-110) mg/dL Lactate 4.5 H* (0.7-2.1) mmol/L Calcium (8.4-10.2) mg/dL Total Bilirubin (0.2-1.3) mg/dL AST (17-59) IU/L ALT (<50) IU/L Alkaline Phosphatase (38-126) U/L Total Creatine Kinase (55-170) U/L CK-MB (CK-2) CK-MB (CK-2) Rel Index Troponin I (0.01-0.034) ng/mL Total Protein (6.3-8.2) g/dL Albumin (3.5-5.0) g/dL Globulin (1.7-4.1) g/dL Albumin/Globulin Ratio (1.0-2.8) Urine Color Urine Appearance Urine pH (4.5-8.0) Ur Specific [place] (1.000-1.035) Urine Protein (Negative) Urine Glucose (UA) (Negative) g/dL Urine Ketones (NEGATIVE) Urine Occult Blood (Negative) Urine Nitrate (Negative) Urine Bilirubin (NEGATIVE) Urine Urobilinogen (0.2) E.U./dL Ur Leukocyte Esterase (NEGATIVE) Urine RBC (0-5/HPF) Urine WBC (0-5/HPF) Ur Squamous Epith Cells (0-5/HPF) Amorphous Sediment Urine Bacteria (None) Ur Culture Indicated? SARS-CoV-2 (PCR) Negative (Negative) Blood Type O Positive Antibody Screen Negative Crossmatch See Detail 11/02/21 11/02/21 11/02/21 Range/Units 14:31 16:42 16:42 WBC 8.5 (4.5-11.0) X10^3/uL RBC 2.79 L (4.5-5.9) X10^6/uL Hgb 6.5 L* (13.5-17.5) g/dL Hct 20.6 L* (41-53) % MCV 73.9 L D (80-100) fL MCH 23.2 L (26-34) PG MCHC 31.4 D (30-36) % RDW 20.0 H (11.6-14.8) % Plt Count 243 (150-400) X10^3/uL Neut % (Auto) 85.9 H (50-75) % Lymph % (Auto) 8.7 L (25-40) % [place] % (Auto) 4.5 (3-14) % Eos % (Auto) 0.2 L (2-4) % Baso % (Auto) 0.7 (0-2) % Neut # (Auto) 7300 H (1272-2632) /uL Lymph # (Auto) 700 L (9588-5714) /uL [place] # (Auto) 400 (0-900) /uL Eos # (Auto) 0 (0-450) /uL Baso # (Auto) 100 (0-100) /uL RBC Morphology Hypochromasia Microcytosis PT (10.1-12.7) SECONDS INR (0.9-1.3) Sodium 156 H (137-145) mmol/L Potassium 5.6 H (3.4-5.1) mmol/L Chloride 125 H* (98-107) mmol/L Carbon Dioxide 22 (22-32) mmol/L BUN 74 H (9-20) mg/dL Creatinine 1.91 H (0.66-1.25) mg/dL Estimated GFR 37 L (>60) mL/min BUN/Creatinine Ratio 38.7 H (6-22) Glucose 90 D (80-110) mg/dL Lactate (0.7-2.1) mmol/L Calcium 8.0 L (8.4-10.2) mg/dL Total Bilirubin 0.3 (0.2-1.3) mg/dL AST 20 (17-59) IU/L ALT 11 (<50) IU/L Alkaline Phosphatase 156 H (38-126) U/L Total Creatine Kinase (55-170) U/L CK-MB (CK-2) CK-MB (CK-2) Rel Index Troponin I (0.01-0.034) ng/mL Total Protein 7.0 (6.3-8.2) g/dL Albumin 3.6 (3.5-5.0) g/dL Globulin 3.4 (1.7-4.1) g/dL Albumin/Globulin Ratio 1.1 (1.0-2.8) Urine Color Yellow Urine Appearance Clear Urine pH 8.0 (4.5-8.0) Ur Specific [place] 1.010 (1.000-1.035) Urine Protein 1+ H (Negative) Urine Glucose (UA) Negative (Negative) g/dL Urine Ketones Negative (NEGATIVE) Urine Occult Blood 2+ H (Negative) Urine Nitrate Positive H (Negative) Urine Bilirubin Negative (NEGATIVE) Urine Urobilinogen 0.2 (0.2) E.U./dL Ur Leukocyte Esterase 3+ H (NEGATIVE) Urine RBC 5-10/hpf H (0-5/HPF) Urine WBC 10-30/hpf H (0-5/HPF) Ur Squamous Epith Cells 1-5 /hpf (0-5/HPF) Amorphous Sediment 1+ Urine Bacteria Moderate (10-30) H (None) Ur Culture Indicated? Specimen cultured SARS-CoV-2 (PCR) (Negative) Blood Type Antibody Screen Crossmatch 11/02/21 Range/Units 16:42 WBC (4.5-11.0) X10^3/uL RBC (4.5-5.9) X10^6/uL Hgb (13.5-17.5) g/dL Hct (41-53) % MCV (80-100) fL MCH (26-34) PG MCHC (30-36) % RDW (11.6-14.8) % Plt Count (150-400) X10^3/uL Neut % (Auto) (50-75) % Lymph % (Auto) (25-40) % [place] % (Auto) (3-14) % Eos % (Auto) (2-4) % Baso % (Auto) (0-2) % Neut # (Auto) (7772-9317) /uL Lymph # (Auto) (2723-5406) /uL [place] # (Auto) (0-900) /uL Eos # (Auto) (0-450) /uL Baso # (Auto) (0-100) /uL RBC Morphology Hypochromasia Microcytosis PT (10.1-12.7) SECONDS INR (0.9-1.3) Sodium (137-145) mmol/L Potassium (3.4-5.1) mmol/L Chloride (98-107) mmol/L Carbon Dioxide (22-32) mmol/L BUN (9-20) mg/dL Creatinine (0.66-1.25) mg/dL Estimated GFR (>60) mL/min BUN/Creatinine Ratio (6-22) Glucose (80-110) mg/dL Lactate 1.1 (0.7-2.1) mmol/L Calcium (8.4-10.2) mg/dL Total Bilirubin (0.2-1.3) mg/dL AST (17-59) IU/L ALT (<50) IU/L Alkaline Phosphatase (38-126) U/L Total Creatine Kinase (55-170) U/L CK-MB (CK-2) CK-MB (CK-2) Rel Index Troponin I (0.01-0.034) ng/mL Total Protein (6.3-8.2) g/dL Albumin (3.5-5.0) g/dL Globulin (1.7-4.1) g/dL Albumin/Globulin Ratio (1.0-2.8) Urine Color Urine Appearance Urine pH (4.5-8.0) Ur Specific [place] (1.000-1.035) Urine Protein (Negative) Urine Glucose (UA) (Negative) g/dL Urine Ketones (NEGATIVE) Urine Occult Blood (Negative) Urine Nitrate (Negative) Urine Bilirubin (NEGATIVE) Urine Urobilinogen (0.2) E.U./dL Ur Leukocyte Esterase (NEGATIVE) Urine RBC (0-5/HPF) Urine WBC (0-5/HPF) Ur Squamous Epith Cells (0-5/HPF) Amorphous Sediment Urine Bacteria (None) Ur Culture Indicated? SARS-CoV-2 (PCR) (Negative) Blood Type Antibody Screen Crossmatch Point of Care Testing Glucose POC 72 MDM Narrative Medical decision making narrative: patient critical on arrival, hypotensive, pale, and diaphoretic with history of GI bleed. IVF limited and pressors removed. Central line placed and patient with appropriate hemodynamic response to blood products. H/H improving, BP up to the 90s, making urine, HR down to the 80s. Patient requires ongoing resuscitation, repeat labs, will need EGD Discharge Plan Departure Patient Disposition: Admitted As Inpatient Clinical Impression: Anemia Admit Date/Time: 11/02/21 20:23 Admit Provider: Onel Arellano
[2021-11-02] MEDS: PANTOPRAZOLE 40 MG VIAL 80 MG IV (14:23)
--- NOTE | 2021-11-02 14:34 | PC.NURSE ---
Per EMS, family called r/t decreased mentation. Pt has history of stroke and is nonverbal at baseline, pt opening eyes spontaneously, nodding head yes and no to questions. Blood pressures as low as the 60's systolic recorded by EMS en route, per their report they administered 60mcg push of epinephrine, then placed pt on an epinephrine drip at 2mcg/min, and bolused pt with 1L NS.
[2021-11-02 14:43] LABS: Basophils Absolute Auto 0 /uL (0-100); Basophils Percent Auto 0.6 % (0-2); Eosinophils Absolute Auto 0 /uL (0-450); Eosinophils Percent Auto 0.6 % (2-4); Lymphocytes Absolute Auto 600 /uL (1100-4500); Lymphocytes Percent Auto 9.1 % (25-40); Mean Corpuscular Hemoglobin 19.8 PG (26-34); Mean Corpuscular Volume 70.9 fL (80-100); Monocytes Absolute Auto 400 /uL (0-900); Monocytes Percent Auto 5.6 % (3-14); Neutrophils Absolute Auto 5700 /uL (1500-7000); Neutrophils Percent Auto 84.1 % (50-75); Platelet Count 279 X10^3/uL (150-400); Red Blood Cell Count 2.14 X10^6/uL (4.5-5.9); White Blood Cell Count 6.8 X10^3/uL (4.5-11.0)
[2021-11-02 14:44] LABS: INR 1.1 (0.9-1.3); Prothrombin Time 12.4 SECONDS (10.1-12.7)
[2021-11-02 14:45] LABS: Hemoglobin 4.2 g/dL (13.5-17.5)
[2021-11-02 14:46] LABS: Add Manual Diff / Slide Review SLIDE REVIEW; Hematocrit 15.2 % (41-53)
[2021-11-02 14:47] LABS: Appearance Urine UA CLEAR; Bilirubin Urine UA NEGATIVE (NEGATIVE); Color Urine UA YELLOW; Glucose Urine UA NEGATIVE (Negative); Ketones Urine UA NEGATIVE (NEGATIVE); Leukocyte Esterase Urine UA 3+ (NEGATIVE); Nitrite Urine UA POSITIVE (Negative); Occult Blood Urine UA 2+ (Negative); Protein Urine UA 1+ (Negative); Urobilinogen Urine UA 0.2 E.U./dL (0.2)
[2021-11-02 14:49] LABS: Alanine Aminotransferase 14 IU/L (<50); Albumin 3.9 g/dL (3.5-5.0); Albumin Globulin Ratio 1.1 (1.0-2.8); Alkaline Phosphatase 169 U/L (38-126); Aspartate Aminotransferase 26 IU/L (17-59); BUN Creatinine Ratio 37.5 (6-22); Bilirubin Total 0.4 mg/dL (0.2-1.3); Blood Urea Nitrogen 75 mg/dL (9-20); Calcium 8.2 mg/dL (8.4-10.2); Carbon Dioxide 20 mmol/L (22-32); Creatine Kinase 21 U/L (55-170); Estimated Glomerular Filt Rate 35 mL/min (>60); Globulin 3.6 g/dL (1.7-4.1); Glucose 193 mg/dL (80-110); HEMOLYSIS 16 (0-50); Potassium 5.2 mmol/L (3.4-5.1); Sodium 156 mmol/L (137-145); Total Protein 7.5 g/dL (6.3-8.2)
--- NOTE | 2021-11-02 14:50 | PC.NURSE ---
Delia in Lab called at 1425. Critical H&H, 4.2.2. Provider and primary RN aware.
[2021-11-02 14:55] LABS: Lactate (Lactic Acid) 4.5 mmol/L (0.7-2.1)
[2021-11-02 14:56] LABS: COVID19 -Nasal RAPID Negative (Negative)
[2021-11-02 14:58] LABS: Chloride 125 mmol/L (98-107)
[2021-11-02 14:59] LABS: Amorphous Sediment Urine 1+; Bacteria Urine Moderate (10-30); Culture Indicated Urine Specimen Cultured; RBC Urine 5-10/HPF (0-5/HPF); Squamous Epithelial Cell Urine 1-5 /HPF (0-5/HPF); WBC Urine 10-30/HPF (0-5/HPF)
[2021-11-02 15:00] LABS: Troponin I < 0.012 ng/mL (0.01-0.034)
[2021-11-02 15:03] LABS: Hypochromasia 2+; Microcytosis 2+
--- NOTE | 2021-11-02 15:13 | PC.NURSE ---
Pt unable to sign for self, fiance at bedside, pt nods understanding of indication and education regarding blood, pt nods to have fiance sign blood consent on his behalf.
[2021-11-02 16:26] LABS: Reflexed Lactate in 2 Hours Y
--- NOTE | 2021-11-02 17:03 | PC.NURSE ---
Addendum entered by Lupe Boles R.N. 11/02/21 17:20: Pt has existing peg tube. Isaiasmauro states he was recommended to do test with a pill camera, but is unable to swallow and therefore could not go forward with the test. Last admission r/t low blood levels in May, and dmitriy states before that admission he was at [facility] for similar. Original Note: Pt radial pulses equal bilaterally, dorsalis pedis pulses equal bilaterally. Pt pale and warm to touch. Per dmitriy, pt has history of GI bleed w/o definitive diagnosis, she notes a small amount of blood in a single stool last week but she attributed to his hemorrhoids. Pt nonverbal at baseline, able to lift arms on command, able to roll on command. Dental Secretary strength equal bilateral. Breathing even and unlabored. Denies pain.
[2021-11-02 17:07] LABS: Add Manual Diff / Slide Review NO; Basophils Absolute Auto 100 /uL (0-100); Basophils Percent Auto 0.7 % (0-2); Eosinophils Absolute Auto 0 /uL (0-450); Eosinophils Percent Auto 0.2 % (2-4); Lymphocytes Absolute Auto 700 /uL (1100-4500); Lymphocytes Percent Auto 8.7 % (25-40); Mean Corpuscular HGB Conc 31.4 % (30-36); Mean Corpuscular Hemoglobin 23.2 PG (26-34); Mean Corpuscular Volume 73.9 fL (80-100); Monocytes Absolute Auto 400 /uL (0-900); Monocytes Percent Auto 4.5 % (3-14); Neutrophils Absolute Auto 7300 /uL (1500-7000); Neutrophils Percent Auto 85.9 % (50-75); Platelet Count 243 X10^3/uL (150-400); Red Blood Cell Count 2.79 X10^6/uL (4.5-5.9); White Blood Cell Count 8.5 X10^3/uL (4.5-11.0)
[2021-11-02 17:10] LABS: Hematocrit 20.6 % (41-53); Hemoglobin 6.5 g/dL (13.5-17.5)
--- NOTE | 2021-11-02 17:23 | PC.NURSE ---
Fluid warmer utilized for 3rd unit of blood.
[2021-11-02 17:33] LABS: Alanine Aminotransferase 11 IU/L (<50); Albumin 3.6 g/dL (3.5-5.0); Albumin Globulin Ratio 1.1 (1.0-2.8); Alkaline Phosphatase 156 U/L (38-126); Aspartate Aminotransferase 20 IU/L (17-59); BUN Creatinine Ratio 38.7 (6-22); Bilirubin Total 0.3 mg/dL (0.2-1.3); Blood Urea Nitrogen 74 mg/dL (9-20); Carbon Dioxide 22 mmol/L (22-32); Estimated Glomerular Filt Rate 37 mL/min (>60); Globulin 3.4 g/dL (1.7-4.1); Glucose 90 mg/dL (80-110); HEMOLYSIS < 15 (0-50); Sodium 156 mmol/L (137-145)
[2021-11-02 17:39] LABS: Potassium 5.6 mmol/L (3.4-5.1)
[2021-11-02 17:41] LABS: Chloride 125 mmol/L (98-107)
[2021-11-02 17:51] LABS: Lactate (Lactic Acid) 1.1 mmol/L (0.7-2.1)
[2021-11-02] MEDS: FUROSEMIDE 40 MG/4 ML VIAL IV (18:36)
--- NOTE | 2021-11-02 19:24 | PC.NURSE ---
Dr. Farris notified of blood sugar, pt food unavailable from hospital tonight, pt dmitriy states she will bring his tube feeding.
[2021-11-02] MEDS: cefTRIAXone 2,000 MG in SODIUM CHLORIDE 0.9% 100 ML 200 MG IV (19:27)
--- NOTE | 2021-11-02 20:03 | PC.NURSE ---
Pt fiance at bedside feeding pt through peg tube, Nutren 2.0 250ml. States pt feeds a bottle 4 times daily (0830, 1230, 1700, 2100).
[2021-11-02 21:17] LABS: Add Manual Diff / Slide Review NO; Basophils Absolute Auto 100 /uL (0-100); Basophils Percent Auto 0.8 % (0-2); Eosinophils Absolute Auto 100 /uL (0-450); Eosinophils Percent Auto 0.8 % (2-4); Hemoglobin 9.2 g/dL (13.5-17.5); Lymphocytes Absolute Auto 1300 /uL (1100-4500); Mean Corpuscular HGB Conc 32.4 % (30-36); Mean Corpuscular Hemoglobin 24.7 PG (26-34); Mean Corpuscular Volume 76.1 fL (80-100); Monocytes Absolute Auto 500 /uL (0-900); Monocytes Percent Auto 5.2 % (3-14); Neutrophils Absolute Auto 7100 /uL (1500-7000); Neutrophils Percent Auto 79.2 % (50-75); Platelet Count 247 X10^3/uL (150-400); Red Blood Cell Count 3.75 X10^6/uL (4.5-5.9); Red Cell Distribution Width 19.3 % (11.6-14.8); White Blood Cell Count 8.9 X10^3/uL (4.5-11.0)
[2021-11-02 21:24] LABS: Hematocrit 28.5 % (41-53)
[2021-11-02 21:34] LABS: Carbon Dioxide 21 mmol/L (22-32); Potassium 5.2 mmol/L (3.4-5.1); Sodium 156 mmol/L (137-145)
[2021-11-02 21:35] LABS: Blood Urea Nitrogen 72 mg/dL (9-20); Calcium 8.1 mg/dL (8.4-10.2); Estimated Glomerular Filt Rate 35 mL/min (>60); Glucose 124 mg/dL (80-110); HEMOLYSIS < 15 (0-50)
[2021-11-02 21:36] LABS: Chloride 125 mmol/L (98-107)
[2021-11-02] MEDS: PANTOPRAZOLE 40 MG VIAL IV (22:03)
--- NOTE | 2021-11-02 22:18 | DI.US.S_ITS ---
PROCEDURE: US RENAL COMPLETE INDICATIONS: ACUTE KIDNEY INFECTION TECHNIQUE: Real-time scanning was performed of the kidneys and bladder, with image documentation. COMPARISON: None. FINDINGS: Kidneys: Kidneys are normal in size. Right kidney measures 12 cm long; left kidney measures 9.1 cm long. Right renal cortical thickness is 1.7 cm; left renal cortical thickness is 1.3 cm. Renal cortical echotexture is within normal limits. No hydronephrosis or nephrolithiasis. No suspicious solid mass lesions. Bladder: Decompressed with Young catheter. Ureteral jets are not seen. Volume 24 cc. IMPRESSION: Technically difficult exam. No hydronephrosis. Dictated by: Ernesto Olmstead M.D. on 11/03/2021 at 9:50 Approved by: Ernesto Olmstead M.D. on 11/03/2021 at 9:55
[2021-11-02] MEDS: DEXTROSE 5% WATER 1,000 ML 125 ML IV (22:49)
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
[2021-11-03] VITALS (26 sets, daily range): BP systolic 113–151; BP diastolic 54–74; PULSE 71–100; RESP 14–22; TEMP 36.9–37.3; O2SAT 96–98
[2021-11-03 05:34] LABS: Add Manual Diff / Slide Review NO; Basophils Absolute Auto 0 /uL (0-100); Basophils Percent Auto 0.5 % (0-2); Eosinophils Absolute Auto 100 /uL (0-450); Eosinophils Percent Auto 1.1 % (2-4); Hematocrit 27.7 % (41-53); Lymphocytes Absolute Auto 1100 /uL (1100-4500); Lymphocytes Percent Auto 12.4 % (25-40); Mean Corpuscular HGB Conc 32.6 % (30-36); Mean Corpuscular Hemoglobin 24.6 PG (26-34); Mean Corpuscular Volume 75.5 fL (80-100); Monocytes Absolute Auto 500 /uL (0-900); Monocytes Percent Auto 5.9 % (3-14); Neutrophils Absolute Auto 6800 /uL (1500-7000); Neutrophils Percent Auto 80.1 % (50-75); Platelet Count 227 X10^3/uL (150-400); Red Blood Cell Count 3.66 X10^6/uL (4.5-5.9); Red Cell Distribution Width 19.6 % (11.6-14.8); White Blood Cell Count 8.5 X10^3/uL (4.5-11.0)
--- NOTE | 2021-11-03 05:47 | PC.NURSE ---
0530- Patient has rested well tonight. One small stool that was guiac negative. Vitals have been stable and patient has had no distress through the night. Patient significant other is at bedside. Will monitor.
[2021-11-03] MEDS: DEXTROSE 5% WATER 1,000 ML 125 ML IV ×3 (05:54→23:25)
[2021-11-03 06:40] LABS: BUN Creatinine Ratio 36.3 (6-22); Blood Urea Nitrogen 70 mg/dL (9-20); Calcium 7.7 mg/dL (8.4-10.2); Carbon Dioxide 24 mmol/L (22-32); Chloride 121 mmol/L (98-107); Estimated Glomerular Filt Rate 37 mL/min (>60); Glucose 126 mg/dL (80-110); HEMOLYSIS < 15 (0-50); Potassium 5.3 mmol/L (3.4-5.1); Sodium 153 mmol/L (137-145)
--- NOTE | 2021-11-03 09:30 | DIET.CONS ---
Dietary Consultation Note Admission Date: 11/02/2021 20:23 Assessment: 71y M admitted c weakness, low BP found to have GIB referred to nutrition for tube feed reccs as pt has PEG. Pt currently NPO, not appropriate for TF at this time. TF reccs below in intervention to be started when medically appropriate. Ht: 177.8 cm Wt: 74.843 kg BMI: 23.6 Last BM: 11/03/21 (11/03/21 05:49) MNA: 9 Hugh Score: 14 Diet: 11/02/21 21:20 NPO Diet Diet Modifications: NPO Type: Strict Labs: RBC 3.66 X10^6/uL (4.5-5.9) L 11/03/21 05:30 Hgb 9.0 g/dL (13.5-17.5) L 11/03/21 05:30 Hct 27.7 % (41-53) L 11/03/21 05:30 Creatinine 1.93 mg/dL (0.66-1.25) H 11/03/21 05:30 Lactate 1.1 mmol/L (0.7-2.1) 11/02/21 16:42 Nutrition Diagnosis: Altered GI function r/t aphagia c left side deficits aeb PEG use and h/o multiple strokes Interventions: Jevity 1.2 x 260mL each feed, 6 feeds per day with 140mL flushes Kelley feed 260ml Jevity 1.2 each at 8am, 10am, 1pm, 4pm, and 7pm with free water flush. Before each feed, flush line with 60mL free water into PEG, after feed give remainder free water (80mL). Feed kcals: 1872 (26 kcal/kg per CVA) Total PRO: 87gm (1.2 g/kg per CVA), Total carbs: 264g, Total fat: 61g Feed water: 1259mL Water flushes: 140ml each feed= 840mL per day Total fluids: 2099mL (29ml/kg) Monitoring/Evaluations: diet advancement, TF tolerance Electronically Signed by: Teresa Tejeda 11/03/21 09:30 Clinical Dietitian [address] [id number]
--- NOTE | 2021-11-03 09:54 | DI.CT.S_ITS ---
PROCEDURE: CT ABDOMEN PELVIS WO CON INDICATIONS: r/o GI bleed TECHNIQUE: Noncontrast 5 mm thick sections acquired from the diaphragms to the symphysis. 5 mm coronal and sagittal reformats were then performed. For radiation dose reduction, the following was used: automated exposure control, adjustment of mA and/or kV according to patient size. COMPARISON: [facility], CR, XR CHEST 1V, 11/02/2021, 14:41. [facility], US, US RENAL COMPLETE, 11/03/2021, 10:02. FINDINGS: Image quality: Excellent. ABDOMEN: Lung bases: Lung bases are clear. Heart size is normal. Right IJ line extends into the mid to inferior right atrium. Solid organs: Liver is normal in size. Gallbladder there is a calcified gallstone noted. No gallbladder wall thickening. No inflammatory change in the surrounding fat. Pancreas is normal in contours. Spleen is normal in size. No adrenal nodules. Right kidney has a prominent area of cortical loss involving the middle pole consistent with remote insult. No hydronephrosis. Peritoneum and bowel: Large fecal impaction. Bowel otherwise unremarkable in appearance. Percutaneous gastrostomy in place. Nodes and vessels: No retroperitoneal or mesenteric adenopathy by size criteria. Aorta and inferior vena cava are normal in caliber. Miscellaneous: No ventral hernias. PELVIS: Genitourinary: A Young catheter decompresses the bladder. Miscellaneous: No inguinal hernias or adenopathy. Bones: No suspicious bony lesions. No vertebral body compression fractures. Bilateral total hip arthroplasties. Bilateral L5 pars defects with mild anterolisthesis of L5 on S1. There is marked left foraminal narrowing with left foraminal L5 nerve root impingement. There is significant metallic artifact in the pelvis from the hip prostheses. IMPRESSION: 1. Right IJ line extends into the mid to inferior right atrium. Suggest retraction. 2. Cholelithiasis. 3. Large fecal impaction. 4. Significant focal right renal cortical loss consistent with remote insult. 5. Incidental note made of bilateral L5 pars defects with marked left foraminal narrowing at L5-S1. Comment: If clinically suspect GI bleed, consider CT angiography of the abdomen and pelvis. Dictated by: Greg Dong M.D. on 11/03/2021 at 11:22 Approved by: Greg Dong M.D. on 11/03/2021 at 11:28
--- NOTE | 2021-11-03 10:03 | P.TELICUCN_ITS ---
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 [place] Smoking Status: Former smoker alcohol intake: former Current Medications Current Medications Medications: Home Medications ascorbic acid (vitamin C) 500 mg chewable tablet 500 mg feeding tube DAILY 11/02/21 [History Confirmed 11/02/21] clopidogrel 75 mg tablet 75 mg feeding tube DAILY 11/02/21 [History Confirmed 11/02/21] escitalopram oxalate 10 mg tablet 10 mg feeding tube DAILY 11/02/21 [History Confirmed 11/02/21] famotidine 20 mg tablet 20 mg feeding tube DAILY 11/02/21 [History Confirmed 11/02/21] ferrous sulfate 300 mg (60 mg iron)/5 mL oral liquid 300 mg feeding tube [id number] [History Confirmed 11/02/21] gemfibrozil 600 mg tablet 600 mg feeding tube BID 11/02/21 [History Confirmed 11/02/21] lisinopril 2.5 mg tablet 2.5 mg feeding tube DAILY 11/02/21 [History Confirmed 11/02/21] metformin 500 mg tablet 500 mg PO BID 11/02/21 [History Confirmed 11/02/21] simvastatin 5 mg tablet 5 mg feeding tube QPM 11/02/21 [History Confirmed 11/02/21] trazodone 50 mg tablet 25 mg feeding tube BEDTIME PRN DEPRESSION 11/02/21 [History Confirmed 11/02/21] Visit Medications (administered) Generic Name Dose Route Start Last Admin Trade Name Freq PRN Reason Stop Dose Admin Dextrose 1,000 mls @ 125 mls/hr 11/02/21 22:15 11/03/21 05:54 Dextrose 5% Water IV 125 mls/hr CONT NIECY Administration Insulin Human Lispro 0 unit 11/03/21 07:45 11/03/21 08:42 Insulin Lispro 100 Unit/Ml 3ml Vial SUBCUT Not Given ACHS [facility] Protocol Pantoprazole Sodium 40 mg 11/02/21 21:20 11/02/21 22:03 Pantoprazole 40 Mg Vial IV 40 mg BID NIECY Administration Exam Vital Signs (past 8 hours): - 11/03/21 03:00 11/03/21 03:00 11/03/21 04:00 Temperature 98.6 F Pulse Rate 91 H Respiratory Rate 18 Blood Pressure 133/61 121/60 Pulse Oximetry 98 11/03/21 04:00 11/03/21 05:00 11/03/21 05:00 Temperature 98.4 F 98.4 F Pulse Rate 80 79 Respiratory Rate 15 15 Blood Pressure 125/60 Pulse Oximetry 97 97 11/03/21 06:00 11/03/21 06:00 11/03/21 07:00 Temperature 98.4 F Pulse Rate 78 Respiratory Rate 15 Blood Pressure 115/57 L 151/73 H Pulse Oximetry 97 11/03/21 07:00 11/03/21 08:00 11/03/21 08:00 Temperature 98.4 F 98.4 F Pulse Rate 86 81 Respiratory Rate 15 18 Blood Pressure 120/59 L Pulse Oximetry 98 98 11/03/21 09:00 11/03/21 09:00 Temperature 98.4 F Pulse Rate 77 Respiratory Rate 14 Blood Pressure 123/58 L Pulse Oximetry 98 Oxygen Delivery Method Room Air Objective Labs Result Diagrams: 11/03/21 05:30 11/03/21 05:30 Labs: Laboratory Results - last 24 hr 11/02/21 11/02/21 11/02/21 14:25 14:25 14:25 WBC 6.8 RBC 2.14 L Hgb 4.2 L* Hct 15.2 L* MCV 70.9 L MCH 19.8 L MCHC 28.0 L RDW 18.0 H Plt Count 279 Neut % (Auto) 84.1 H Lymph % (Auto) 9.1 L [place] % (Auto) 5.6 Eos % (Auto) 0.6 L Baso % (Auto) 0.6 Neut # (Auto) 5700 Lymph # (Auto) 600 L [place] # (Auto) 400 Eos # (Auto) 0 Baso # (Auto) 0 RBC Morphology See below Hypochromasia 2+ H Microcytosis 2+ H PT 12.4 INR 1.1 Sodium 156 H Potassium 5.2 H Chloride 125 H* Carbon Dioxide 20 L BUN 75 H Creatinine 2.00 H Estimated GFR 35 L BUN/Creatinine Ratio 37.5 H Glucose 193 H Lactate Calcium 8.2 L Total Bilirubin 0.4 AST 26 ALT 14 Alkaline Phosphatase 169 H Total Creatine Kinase 21 L CK-MB (CK-2) TNP CK-MB (CK-2) Rel Index TNP Troponin I < 0.012 Total Protein 7.5 Albumin 3.9 Globulin 3.6 Albumin/Globulin Ratio 1.1 Urine Color Urine Appearance Urine pH Ur Specific [place] Urine Protein Urine Glucose (UA) Urine Ketones Urine Occult Blood Urine Nitrate Urine Bilirubin Urine Urobilinogen Ur Leukocyte Esterase Urine RBC Urine WBC Ur Squamous Epith Cells Amorphous Sediment Urine Bacteria Ur Culture Indicated? Nasal Screen MRSA (PCR) SARS-CoV-2 (PCR) Blood Type Antibody Screen Crossmatch 11/02/21 11/02/21 11/02/21 14:25 14:25 14:25 WBC RBC Hgb Hct MCV MCH MCHC RDW Plt Count Neut % (Auto) Lymph % (Auto) [place] % (Auto) Eos % (Auto) Baso % (Auto) Neut # (Auto) Lymph # (Auto) [place] # (Auto) Eos # (Auto) Baso # (Auto) RBC Morphology Hypochromasia Microcytosis PT INR Sodium Potassium Chloride Carbon Dioxide BUN Creatinine Estimated GFR BUN/Creatinine Ratio Glucose Lactate 4.5 H* Calcium Total Bilirubin AST ALT Alkaline Phosphatase Total Creatine Kinase CK-MB (CK-2) CK-MB (CK-2) Rel Index Troponin I Total Protein Albumin Globulin Albumin/Globulin Ratio Urine Color Urine Appearance Urine pH Ur Specific [place] Urine Protein Urine Glucose (UA) Urine Ketones Urine Occult Blood Urine Nitrate Urine Bilirubin Urine Urobilinogen Ur Leukocyte Esterase Urine RBC Urine WBC Ur Squamous Epith Cells Amorphous Sediment Urine Bacteria Ur Culture Indicated? Nasal Screen MRSA (PCR) SARS-CoV-2 (PCR) Negative Blood Type O Positive Antibody Screen Negative Crossmatch See Detail 11/02/21 11/02/21 11/02/21 14:31 16:42 16:42 WBC 8.5 RBC 2.79 L Hgb 6.5 L* Hct 20.6 L* MCV 73.9 L D MCH 23.2 L MCHC 31.4 D RDW 20.0 H Plt Count 243 Neut % (Auto) 85.9 H Lymph % (Auto) 8.7 L [place] % (Auto) 4.5 Eos % (Auto) 0.2 L Baso % (Auto) 0.7 Neut # (Auto) 7300 H Lymph # (Auto) 700 L [place] # (Auto) 400 Eos # (Auto) 0 Baso # (Auto) 100 RBC Morphology Hypochromasia Microcytosis PT INR Sodium 156 H Potassium 5.6 H Chloride 125 H* Carbon Dioxide 22 BUN 74 H Creatinine 1.91 H Estimated GFR 37 L BUN/Creatinine Ratio 38.7 H Glucose 90 D Lactate Calcium 8.0 L Total Bilirubin 0.3 AST 20 ALT 11 Alkaline Phosphatase 156 H Total Creatine Kinase CK-MB (CK-2) CK-MB (CK-2) Rel Index Troponin I Total Protein 7.0 Albumin 3.6 Globulin 3.4 Albumin/Globulin Ratio 1.1 Urine Color Yellow Urine Appearance Clear Urine pH 8.0 Ur Specific [place] 1.010 Urine Protein 1+ H Urine Glucose (UA) Negative Urine Ketones Negative Urine Occult Blood 2+ H Urine Nitrate Positive H Urine Bilirubin Negative Urine Urobilinogen 0.2 Ur Leukocyte Esterase 3+ H Urine RBC 5-10/hpf H Urine WBC 10-30/hpf H Ur Squamous Epith Cells 1-5 /hpf Amorphous Sediment 1+ Urine Bacteria Moderate (10-30) H Ur Culture Indicated? Specimen cultured Nasal Screen MRSA (PCR) SARS-CoV-2 (PCR) Blood Type Antibody Screen Crossmatch 11/02/21 11/02/21 11/02/21 16:42 21:00 21:00 WBC 8.9 RBC 3.75 L Hgb 9.2 L Hct 28.5 L MCV 76.1 L MCH 24.7 L MCHC 32.4 RDW 19.3 H Plt Count 247 Neut % (Auto) 79.2 H Lymph % (Auto) 14.0 L [place] % (Auto) 5.2 Eos % (Auto) 0.8 L Baso % (Auto) 0.8 Neut # (Auto) 7100 H Lymph # (Auto) 1300 [place] # (Auto) 500 Eos # (Auto) 100 Baso # (Auto) 100 RBC Morphology Hypochromasia Microcytosis PT INR Sodium 156 H Potassium 5.2 H Chloride 125 H* Carbon Dioxide 21 L BUN 72 H Creatinine 2.00 H Estimated GFR 35 L BUN/Creatinine Ratio 36.0 H Glucose 124 H Lactate 1.1 Calcium 8.1 L Total Bilirubin AST ALT Alkaline Phosphatase Total Creatine Kinase CK-MB (CK-2) CK-MB (CK-2) Rel Index Troponin I Total Protein Albumin Globulin Albumin/Globulin Ratio Urine Color Urine Appearance Urine pH Ur Specific [place] Urine Protein Urine Glucose (UA) Urine Ketones Urine Occult Blood Urine Nitrate Urine Bilirubin Urine Urobilinogen Ur Leukocyte Esterase Urine RBC Urine WBC Ur Squamous Epith Cells Amorphous Sediment Urine Bacteria Ur Culture Indicated? Nasal Screen MRSA (PCR) SARS-CoV-2 (PCR) Blood Type Antibody Screen Crossmatch 11/02/21 11/03/21 11/03/21 22:20 05:30 05:30 WBC 8.5 RBC 3.66 L Hgb 9.0 L Hct 27.7 L MCV 75.5 L MCH 24.6 L MCHC 32.6 RDW 19.6 H Plt Count 227 Neut % (Auto) 80.1 H Lymph % (Auto) 12.4 L [place] % (Auto) 5.9 Eos % (Auto) 1.1 L Baso % (Auto) 0.5 Neut # (Auto) 6800 Lymph # (Auto) 1100 [place] # (Auto) 500 Eos # (Auto) 100 Baso # (Auto) 0 RBC Morphology Hypochromasia Microcytosis PT INR Sodium 153 H Potassium 5.3 H Chloride 121 H Carbon Dioxide 24 BUN 70 H Creatinine 1.93 H Estimated GFR 37 L BUN/Creatinine Ratio 36.3 H Glucose 126 H Lactate Calcium 7.7 L Total Bilirubin AST ALT Alkaline Phosphatase Total Creatine Kinase CK-MB (CK-2) CK-MB (CK-2) Rel Index Troponin I Total Protein Albumin Globulin Albumin/Globulin Ratio Urine Color Urine Appearance Urine pH Ur Specific [place] Urine Protein Urine Glucose (UA) Urine Ketones Urine Occult Blood Urine Nitrate Urine Bilirubin Urine Urobilinogen Ur Leukocyte Esterase Urine RBC Urine WBC Ur Squamous Epith Cells Amorphous Sediment Urine Bacteria Ur Culture Indicated? Nasal Screen MRSA (PCR) Negative for mrsa SARS-CoV-2 (PCR) Blood Type Antibody Screen Crossmatch Assessment & Plan Assessment & Plan narrative: patient seen with bedside nurse chart/labs/imaging reviewed 71 year old male with PMHx of CVA, bedbound with peg,DM admitted to ICU with acute blood loss anemia, unclear source acute renal failure hyperkalemia currently afebrile, HD stable mental status at baseline no signs of acute bleeding HgB 8.5 after 5 units of blood creat 2.0 k 5.2 suggest -avoid benzos/opiods -repeat labs, add haptoglobin/LDh -check egk, tx hyperk -give 1 g calcium, pt recieved 4units of prbc -check ct/ab pelvis, rule out hematoma -srugery/GI to eval for possible EGD -ppi drip/bid -ivf -keep glucose 140-180s -monitor ins/outs -replace lytes prn -gi/dvt ppx, no ac, hold antiplatelet meds -goals of care and severity of illness should be addressed with family -please call eICU prn Time Spent With Patient Critical Care time: I spent a total of [] minutes of critical care time on this patient's care today; this time is exclusive of procedural time.
[2021-11-03 10:35] LABS: Creatinine Urine Random 83.3 mg/dL; Sodium Urine Random 42 mmol/L (30-90)
[2021-11-03] MEDS: SODIUM CHLORIDE 0.9% IV (10:40)
[2021-11-03] MEDS: PANTOPRAZOLE 40 MG VIAL IV ×2 (10:40→21:05)
[2021-11-03] MEDS: CALCIUM CHLORIDE IV (10:40)
[2021-11-03 10:49] LABS: Hematocrit 28.8 % (41-53); Hemoglobin 9.3 g/dL (13.5-17.5); Mean Corpuscular HGB Conc 32.2 % (30-36); Mean Corpuscular Hemoglobin 24.6 PG (26-34); Mean Corpuscular Volume 76.3 fL (80-100); Platelet Count 236 X10^3/uL (150-400); Red Blood Cell Count 3.78 X10^6/uL (4.5-5.9); Red Cell Distribution Width 19.4 % (11.6-14.8); White Blood Cell Count 9.1 X10^3/uL (4.5-11.0)
[2021-11-03 11:41] LABS: Neutrophils Absolute Manual 7280 /uL (3000-5900); Total Cells Counted 100
[2021-11-03 11:43] LABS: Anisocytosis 2+; Hypochromasia 1+; Microcytosis 1+
--- NOTE | 2021-11-03 15:02 | PM.PN.1 ---
Subjective Subjective Interval history: pt is non-verbal, fionce at bedside , pt cooperative and denies pain, denies nause Exam Vital Signs (past 8 hours): - 11/03/21 08:00 11/03/21 08:00 11/03/21 09:00 Temperature 98.4 F Pulse Rate 81 Respiratory Rate 18 Blood Pressure 120/59 L 123/58 L Pulse Oximetry 98 11/03/21 09:00 11/03/21 10:00 11/03/21 10:00 Temperature 98.4 F 98.4 F Pulse Rate 77 73 Respiratory Rate 14 16 Blood Pressure 116/56 L Pulse Oximetry 98 98 11/03/21 12:14 11/03/21 12:15 11/03/21 12:15 Temperature Pulse Rate 77 77 Respiratory Rate Blood Pressure 127/65 Pulse Oximetry 98 96 11/03/21 13:00 11/03/21 13:00 Temperature Pulse Rate 71 Respiratory Rate Blood Pressure 113/74 Pulse Oximetry 97 Oxygen Delivery Method Room Air Const General: cooperative Orientation: alert and awake HENMT Head: normal to inspection Ears: external ears normal Mouth: oral mucosae normal Eyes Pupils: PERRL EOM: EOM intact bilaterally Neck Neck: normal visual inspection and full ROM Resp Effort & Inspection: normal respiratory effort Auscultation: clear to auscultation bilaterally Cardio Rate: regular rate Rhythm: regular rhythm GI Palpation: soft and no hepatosplenomegaly Auscultation: normal bowel sounds Skin General: no rashes or lesions noted Neuro General: patient alert, patient awake, patient oriented x3, moves all extremities and no focal motor deficits Speech: speech normal Extrem General: normal to inspection, full ROM and no pedal edema Psych Appearance: grossly normal Objective Labs Result Diagrams: 11/03/21 10:20 11/03/21 05:30 Labs: Laboratory Results - last 24 hr 11/02/21 11/02/21 11/02/21 14:25 14:25 14:25 WBC RBC Hgb Hct MCV MCH MCHC RDW Plt Count Neut % (Auto) Lymph % (Auto) [place] % (Auto) Eos % (Auto) Baso % (Auto) Neut # (Auto) Lymph # (Auto) [place] # (Auto) Eos # (Auto) Baso # (Auto) Total Counted Seg Neutrophils % Lymphocytes % (Manual) Monocytes % (Manual) Eosinophils % (Manual) Neutrophils # (Manual) RBC Morphology See below Hypochromasia 2+ H Anisocytosis Microcytosis 2+ H Sodium Potassium Chloride Carbon Dioxide BUN Creatinine Estimated GFR BUN/Creatinine Ratio Glucose Lactate Calcium Total Bilirubin AST ALT Alkaline Phosphatase Troponin I < 0.012 Total Protein Albumin Globulin Albumin/Globulin Ratio Ur Random Sodium Urine Creatinine Nasal Screen MRSA (PCR) Blood Type O Positive Antibody Screen Negative Crossmatch See Detail 11/02/21 11/02/21 11/02/21 14:26 16:42 16:42 WBC 8.5 RBC 2.79 L Hgb 6.5 L* Hct 20.6 L* MCV 73.9 L D MCH 23.2 L MCHC 31.4 D RDW 20.0 H Plt Count 243 Neut % (Auto) 85.9 H Lymph % (Auto) 8.7 L [place] % (Auto) 4.5 Eos % (Auto) 0.2 L Baso % (Auto) 0.7 Neut # (Auto) 7300 H Lymph # (Auto) 700 L [place] # (Auto) 400 Eos # (Auto) 0 Baso # (Auto) 100 Total Counted Seg Neutrophils % Lymphocytes % (Manual) Monocytes % (Manual) Eosinophils % (Manual) Neutrophils # (Manual) RBC Morphology Hypochromasia Anisocytosis Microcytosis Sodium 156 H Potassium 5.6 H Chloride 125 H* Carbon Dioxide 22 BUN 74 H Creatinine 1.91 H Estimated GFR 37 L BUN/Creatinine Ratio 38.7 H Glucose 90 D Lactate Calcium 8.0 L Total Bilirubin 0.3 AST 20 ALT 11 Alkaline Phosphatase 156 H Troponin I Total Protein 7.0 Albumin 3.6 Globulin 3.4 Albumin/Globulin Ratio 1.1 Ur Random Sodium 42 Urine Creatinine 83.3 Nasal Screen MRSA (PCR) Blood Type Antibody Screen Crossmatch 11/02/21 11/02/21 11/02/21 16:42 21:00 21:00 WBC 8.9 RBC 3.75 L Hgb 9.2 L Hct 28.5 L MCV 76.1 L MCH 24.7 L MCHC 32.4 RDW 19.3 H Plt Count 247 Neut % (Auto) 79.2 H Lymph % (Auto) 14.0 L [place] % (Auto) 5.2 Eos % (Auto) 0.8 L Baso % (Auto) 0.8 Neut # (Auto) 7100 H Lymph # (Auto) 1300 [place] # (Auto) 500 Eos # (Auto) 100 Baso # (Auto) 100 Total Counted Seg Neutrophils % Lymphocytes % (Manual) Monocytes % (Manual) Eosinophils % (Manual) Neutrophils # (Manual) RBC Morphology Hypochromasia Anisocytosis Microcytosis Sodium 156 H Potassium 5.2 H Chloride 125 H* Carbon Dioxide 21 L BUN 72 H Creatinine 2.00 H Estimated GFR 35 L BUN/Creatinine Ratio 36.0 H Glucose 124 H Lactate 1.1 Calcium 8.1 L Total Bilirubin AST ALT Alkaline Phosphatase Troponin I Total Protein Albumin Globulin Albumin/Globulin Ratio Ur Random Sodium Urine Creatinine Nasal Screen MRSA (PCR) Blood Type Antibody Screen Crossmatch 11/02/21 11/03/21 11/03/21 22:20 05:30 05:30 WBC 8.5 RBC 3.66 L Hgb 9.0 L Hct 27.7 L MCV 75.5 L MCH 24.6 L MCHC 32.6 RDW 19.6 H Plt Count 227 Neut % (Auto) 80.1 H Lymph % (Auto) 12.4 L [place] % (Auto) 5.9 Eos % (Auto) 1.1 L Baso % (Auto) 0.5 Neut # (Auto) 6800 Lymph # (Auto) 1100 [place] # (Auto) 500 Eos # (Auto) 100 Baso # (Auto) 0 Total Counted Seg Neutrophils % Lymphocytes % (Manual) Monocytes % (Manual) Eosinophils % (Manual) Neutrophils # (Manual) RBC Morphology Hypochromasia Anisocytosis Microcytosis Sodium 153 H Potassium 5.3 H Chloride 121 H Carbon Dioxide 24 BUN 70 H Creatinine 1.93 H Estimated GFR 37 L BUN/Creatinine Ratio 36.3 H Glucose 126 H Lactate Calcium 7.7 L Total Bilirubin AST ALT Alkaline Phosphatase Troponin I Total Protein Albumin Globulin Albumin/Globulin Ratio Ur Random Sodium Urine Creatinine Nasal Screen MRSA (PCR) Negative for mrsa Blood Type Antibody Screen Crossmatch 11/03/21 10:20 WBC 9.1 RBC 3.78 L Hgb 9.3 L Hct 28.8 L MCV 76.3 L MCH 24.6 L MCHC 32.2 RDW 19.4 H Plt Count 236 Neut % (Auto) Lymph % (Auto) [place] % (Auto) Eos % (Auto) Baso % (Auto) Neut # (Auto) Lymph # (Auto) [place] # (Auto) Eos # (Auto) Baso # (Auto) Total Counted 100 Seg Neutrophils % 80.0 H Lymphocytes % (Manual) 15.0 L Monocytes % (Manual) 3.0 Eosinophils % (Manual) 2.0 Neutrophils # (Manual) 7280 H RBC Morphology See below Hypochromasia 1+ H Anisocytosis 2+ H Microcytosis 1+ H Sodium Potassium Chloride Carbon Dioxide BUN Creatinine Estimated GFR BUN/Creatinine Ratio Glucose Lactate Calcium Total Bilirubin AST ALT Alkaline Phosphatase Troponin I Total Protein Albumin Globulin Albumin/Globulin Ratio Ur Random Sodium Urine Creatinine Nasal Screen MRSA (PCR) Blood Type Antibody Screen Crossmatch [facility] Medical History Aphasia as late effect of stroke History of stroke within last year Surgical History S/P percutaneous endoscopic gastrostomy (PEG) tube placement Family History Mother Myocardial infarction Father Alcoholism Social History marital status: unmarried,living together household members: significant other and caregiver lives independently: Yes caregiver/support person: Yes 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 [place] Smoking Status: Former smoker alcohol intake: former Assessment & Plan Assessment & Plan narrative: Acute blood loss anemia could be GI source , this is third episode per firenny -keep npo -surgery consulted and not planning EGD -continue IV PPI BID -transfuse for hgb <7 -CBC Q 12 h LEONORA with hyperkalemia - cr 2.0 stable -renal ultrasound unremarkable Hypernatremia -likely due to not enough free water in PEG -continue D5 -improved 156 to 153 UTI -continue ceftriaxone 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 Quality VTE Deep Vein Thrombosis/Pulmonary Embolism Present on Admission: No
[2021-11-03] MEDS: SODIUM POLYSTYRENE SULFON/SORB 15 GM/60 ML CUP 30 GM PO (15:26)
[2021-11-03 16:56] LABS: Creatine Kinase 263 U/L (55-170)
--- NOTE | 2021-11-03 16:59 | PM.CALLCOV.1 ---
Call Coverage Note Note Date of Patient Contact: 11/03/21 Time of Patient Contact: 16:59 Narrative of Care Provided: 71-year-old male with a stroke on Plavix who is admitted to the hospital with anemia. Initial hematocrit 15 and now 29 after 4 units Discussed with hospitalist. Stool today guaiac negative EGD 4 months ago notable only for gastritis colonoscopy was negative Continue Protonix hold Plavix If worsening hematocrit or guaiac-positive stool develop please call with questions
[2021-11-03 17:41] LABS: Alanine Aminotransferase 14 IU/L (<50); Albumin 3.6 g/dL (3.5-5.0); Albumin Globulin Ratio 1.1 (1.0-2.8); Alkaline Phosphatase 178 U/L (38-126); Aspartate Aminotransferase 28 IU/L (17-59); Bilirubin Total 0.4 mg/dL (0.2-1.3); Blood Urea Nitrogen 61 mg/dL (9-20); Calcium 8.3 mg/dL (8.4-10.2); Carbon Dioxide 25 mmol/L (22-32); Chloride 118 mmol/L (98-107); Estimated Glomerular Filt Rate 39 mL/min (>60); Globulin 3.2 g/dL (1.7-4.1); Glucose 99 mg/dL (80-110); HEMOLYSIS < 15 (0-50); Potassium 4.9 mmol/L (3.4-5.1); Sodium 153 mmol/L (137-145); Total Protein 6.8 g/dL (6.3-8.2)
[2021-11-03] MEDS: cefTRIAXone 1,000 MG in SODIUM CHLORIDE 0.9% 100 ML 200 MG IV (21:04)
[2021-11-04] VITALS (11 sets, daily range): BP systolic 109–146; BP diastolic 58–67; PULSE 77–99; RESP 16–28; TEMP 37.1–38.3; O2SAT 95–100
[2021-11-04 03:44] LABS: Lactate Dehydrogenase 419 U/L (313-618)
[2021-11-04 05:44] LABS: Haptoglobin 345 mg/dL (32-363)
--- NOTE | 2021-11-04 06:39 | PC.NURSE ---
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 VSS, denies pain. Incontinent large loose guaiac negative stool. No S/S bleeding.
[2021-11-04] MEDS: DEXTROSE 5% WATER 1,000 ML 125 ML IV (08:15)
[2021-11-04] MEDS: PANTOPRAZOLE 40 MG VIAL IV ×2 (09:52→21:20)
--- NOTE | 2021-11-04 11:06 | P.PN_ITS ---
Subjective Subjective Interval history: pt is not verbal, denies pain, nausea, vomiting Exam Vital Signs (past 8 hours): - 11/04/21 04:00 11/04/21 04:00 11/04/21 04:46 Temperature 99.1 F 99.1 F Pulse Rate 78 86 Respiratory Rate 18 16 Blood Pressure 122/58 L Oxygen Delivery Method 11/04/21 06:01 11/04/21 06:01 11/04/21 06:08 Temperature 99.1 F 99.3 F Pulse Rate 84 77 Respiratory Rate 19 18 Blood Pressure 141/65 H Oxygen Delivery Method 11/04/21 08:00 Temperature Pulse Rate Respiratory Rate Blood Pressure Oxygen Delivery Method Room Air Oxygen Delivery Method Room Air Oxygen Flow Rate 0 Const General: cooperative Orientation: alert and awake HENMT Head: normal to inspection Ears: external ears normal Mouth: oral mucosae normal Eyes Pupils: PERRL EOM: EOM intact bilaterally Neck Neck: normal visual inspection and full ROM Resp Effort & Inspection: normal respiratory effort Auscultation: clear to auscultation bilaterally Cardio Rate: regular rate Rhythm: regular rhythm GI Palpation: soft and no hepatosplenomegaly Auscultation: normal bowel sounds and other (PEG in place) Skin General: no rashes or lesions noted Neuro General: patient alert, patient awake, patient oriented x3, moves all extrem ities and no focal motor deficits Speech: speech normal Extrem General: normal to inspection, full ROM and no pedal edema Psych Appearance: grossly normal Objective Labs Result Diagrams: 11/03/21 10:20 11/03/21 10:20 Labs: Laboratory Results - last 24 hr 11/03/21 11/03/21 11/03/21 10:20 10:20 10:20 Total Counted 100 Seg Neutrophils % 80.0 H Lymphocytes % (Manual) 15.0 L Monocytes % (Manual) 3.0 Eosinophils % (Manual) 2.0 Neutrophils # (Manual) 7280 H RBC Morphology See below Hypochromasia 1+ H Anisocytosis 2+ H Microcytosis 1+ H Haptoglobin 345 Sodium Potassium Chloride Carbon Dioxide BUN Creatinine Estimated GFR BUN/Creatinine Ratio Glucose Calcium Total Bilirubin AST ALT Alkaline Phosphatase Lactate Dehydrogenase 419 Total Creatine Kinase 263 H D Total Protein Albumin Globulin Albumin/Globulin Ratio 11/03/21 10:20 Total Counted Seg Neutrophils % Lymphocytes % (Manual) Monocytes % (Manual) Eosinophils % (Manual) Neutrophils # (Manual) RBC Morphology Hypochromasia Anisocytosis Microcytosis Haptoglobin Sodium 153 H Potassium 4.9 Chloride 118 H Carbon Dioxide 25 BUN 61 H Creatinine 1.85 H Estimated GFR 39 L BUN/Creatinine Ratio 33.0 H Glucose 99 Calcium 8.3 L Total Bilirubin 0.4 AST 28 ALT 14 Alkaline Phosphatase 178 H Lactate Dehydrogenase Total Creatine Kinase Total Protein 6.8 Albumin 3.6 Globulin 3.2 Albumin/Globulin Ratio 1.1 PFSH Medical History Aphasia as late effect of stroke History of stroke within last year Surgical History S/P percutaneous endoscopic gastrostomy (PEG) tube placement Family History Mother Myocardial infarction Father Alcoholism Social History marital status: unmarried,living together household members: significant other and caregiver lives independently: Yes caregiver/support person: Yes 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 [place] Smoking Status: Former smoker alcohol intake: former Assessment & Plan Assessment & Plan narrative: Acute blood loss anemia -surgery recommending medical management with PPI BID -close monitoring hgb -pending for labs -continue IV PPI BID -transfuse for hgb <7 -CBC daily LEONORA with hyperkalemia - cr 2.0 stable -renal ultrasound unremarkable -hyperkalemia resolved Hypernatremia -likely due to not enough free water in PEG -continue D5 -improved 156 to 153 -pending labs UTI -continue ceftriaxone 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 Quality VTE Deep Vein Thrombosis/Pulmonary Embolism Present on Admission: No
[2021-11-04 12:56] LABS: Blood Urea Nitrogen 33 mg/dL (9-20); Carbon Dioxide 25 mmol/L (22-32); Chloride 111 mmol/L (98-107); Estimated Glomerular Filt Rate 58 mL/min (>60); Glucose 107 mg/dL (80-110); HEMOLYSIS < 15 (0-50); Potassium 3.8 mmol/L (3.4-5.1); Sodium 142 mmol/L (137-145)
[2021-11-04 13:02] LABS: Basophils Absolute Auto 0 /uL (0-100); Basophils Percent Auto 0.4 % (0-2); Eosinophils Absolute Auto 100 /uL (0-450); Eosinophils Percent Auto 1.9 % (2-4); Hematocrit 26.1 % (41-53); Hemoglobin 8.4 g/dL (13.5-17.5); Lymphocytes Absolute Auto 900 /uL (1100-4500); Lymphocytes Percent Auto 14.7 % (25-40); Mean Corpuscular HGB Conc 32.4 % (30-36); Mean Corpuscular Hemoglobin 24.4 PG (26-34); Mean Corpuscular Volume 75.3 fL (80-100); Monocytes Absolute Auto 400 /uL (0-900); Monocytes Percent Auto 5.6 % (3-14); Neutrophils Absolute Auto 4900 /uL (1500-7000); Neutrophils Percent Auto 77.4 % (50-75); Platelet Count 206 X10^3/uL (150-400); Red Blood Cell Count 3.46 X10^6/uL (4.5-5.9); Red Cell Distribution Width 20.5 % (11.6-14.8); White Blood Cell Count 6.3 X10^3/uL (4.5-11.0)
[2021-11-04 13:03] LABS: Add Manual Diff / Slide Review SLIDE REVIEW
[2021-11-04 13:47] LABS: Anisocytosis 3+; Hypersegmented Neutrophils 1+; Hypochromasia 2+; Microcytosis 2+
[2021-11-04] MEDS: cefTRIAXone 1,000 MG in SODIUM CHLORIDE 0.9% 100 ML 200 MG IV (21:00)
[2021-11-05] VITALS: BP 129/58; PULSE 103; RESP 19; TEMP 37.4; O2SAT 94
[2021-11-05 04:00] VITALS: BP 130/75; PULSE 93; RESP 17; TEMP 37.2; O2SAT 96
--- NOTE | 2021-11-05 04:47 | PC.NURSE ---
Tube feeding done on 11/04/21 at 2100. 60 ml free water in PEG tube, 260 ml of Jevity 1.2, and 80 ml free water flush of tube. No feeding issues noted.
[2021-11-05 07:43] VITALS: BP 128/68; PULSE 90; RESP 18; TEMP 37.1; O2SAT 97
[2021-11-05] MEDS: PANTOPRAZOLE 40 MG VIAL IV ×2 (08:17→21:18)
[2021-11-05 08:33] LABS: Add Manual Diff / Slide Review NO; Basophils Absolute Auto 0 /uL (0-100); Basophils Percent Auto 0.3 % (0-2); Eosinophils Absolute Auto 100 /uL (0-450); Eosinophils Percent Auto 1.1 % (2-4); Hematocrit 27.1 % (41-53); Hemoglobin 8.8 g/dL (13.5-17.5); Lymphocytes Absolute Auto 1300 /uL (1100-4500); Lymphocytes Percent Auto 14.9 % (25-40); Mean Corpuscular HGB Conc 32.5 % (30-36); Mean Corpuscular Hemoglobin 24.5 PG (26-34); Mean Corpuscular Volume 75.3 fL (80-100); Monocytes Absolute Auto 500 /uL (0-900); Monocytes Percent Auto 5.3 % (3-14); Neutrophils Absolute Auto 6800 /uL (1500-7000); Neutrophils Percent Auto 78.4 % (50-75); Platelet Count 197 X10^3/uL (150-400); Red Blood Cell Count 3.59 X10^6/uL (4.5-5.9); Red Cell Distribution Width 20.3 % (11.6-14.8); White Blood Cell Count 8.6 X10^3/uL (4.5-11.0)
[2021-11-05 08:44] LABS: Microcytosis 3+; Poikilocytosis 2+
--- NOTE | 2021-11-05 10:47 | PM.PN.1 ---
Subjective Subjective Interval history: pt is awake, alert, non-verbal, denies by shaking head pain, shortness of breath, nausea Exam Vital Signs (past 8 hours): - 11/05/21 04:00 11/05/21 07:43 Temperature 99.0 F 98.8 F Pulse Rate 93 H 90 Respiratory Rate 17 18 Blood Pressure 130/75 128/68 Pulse Oximetry 96 97 Oxygen Flow Rate 0 Oxygen Delivery Method Room Air Oxygen Flow Rate 0 Const General: cooperative Orientation: alert and awake HENPA Head: normal to inspection Ears: external ears normal Mouth: oral mucosae normal Eyes Pupils: PERRL EOM: EOM intact bilaterally Neck Neck: normal visual inspection and full ROM Resp Effort & Inspection: normal respiratory effort Auscultation: clear to auscultation bilaterally Cardio Rate: regular rate Rhythm: regular rhythm GI Palpation: soft and no hepatosplenomegaly Auscultation: normal bowel sounds and other (PEG in place) Skin General: no rashes or lesions noted Neuro General: patient alert, patient awake, patient oriented x3, moves all extremities and no focal motor deficits Speech: speech normal Extrem General: normal to inspection, full ROM and no pedal edema Psych Appearance: grossly normal Objective Labs Result Diagrams: 11/05/21 08:15 11/04/21 11:15 Labs: Laboratory Results - last 24 hr 11/04/21 11/04/21 11/05/21 11:15 11:15 08:15 WBC 6.3 8.6 RBC 3.46 L 3.59 L Hgb 8.4 L 8.8 L Hct 26.1 L 27.1 L MCV 75.3 L 75.3 L MCH 24.4 L 24.5 L MCHC 32.4 32.5 RDW 20.5 H 20.3 H Plt Count 206 197 Neut % (Auto) 77.4 H 78.4 H Lymph % (Auto) 14.7 L 14.9 L [place] % (Auto) 5.6 5.3 Eos % (Auto) 1.9 L 1.1 L Baso % (Auto) 0.4 0.3 Neut # (Auto) 4900 6800 Lymph # (Auto) 900 L 1300 [place] # (Auto) 400 500 Eos # (Auto) 100 100 Baso # (Auto) 0 0 Hypersegmented Neuts 1+ RBC Morphology Not Reportable Not Reportable Hypochromasia 2+ H Poikilocytosis 2+ H Anisocytosis 3+ H Microcytosis 2+ H 3+ H Sodium 142 D Potassium 3.8 Chloride 111 H Carbon Dioxide 25 BUN 33 H Creatinine 1.32 H Estimated GFR 58 L BUN/Creatinine Ratio 25.0 H Glucose 107 Calcium 8.0 L PFSH Medical History Aphasia as late effect of stroke History of stroke within last year Surgical History S/P percutaneous endoscopic gastrostomy (PEG) tube placement Family History Mother Myocardial infarction Father Alcoholism Social History marital status: unmarried,living together household members: significant other and caregiver lives independently: Yes caregiver/support person: Yes 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 [place] Smoking Status: Former smoker alcohol intake: former Assessment & Plan Assessment & Plan narrative: Acute blood loss anemia hgb stable 8.8 vs 8.4 -surgery recommending medical management with PPI BID -close monitoring hgb -continue IV PPI BID -transfuse for hgb <7 -CBC daily LEONORA with hyperkalemia - cr 1,4 vs 2.0 improving -renal ultrasound unremarkable -hyperkalemia resolved -avoid nephrotoxics Hypernatremia -improving/resolving 142 -continue D5 -BMP daily UTI -continue ceftriaxone day 3 History of CVA with PEG tube and residual right sided weakness -holding clopidogrel Type 2 DM -SSI CODE: No intubation, ok for CPR Proxy: Cristina Crain dispo: hopefully tomorrow if stable Time Spent With Patient Critical Care time: I spent a total of [] minutes of critical care time on this patient's care today; this time is exclusive of procedural time. Quality VTE Deep Vein Thrombosis/Pulmonary Embolism Present on Admission: No
--- NOTE | 2021-11-05 11:20 | CM.DANOTE ---
Patient is a 71 yo male who was admitted on 11/02/21 for anemia/weakness. Pt has [facility] and [facility] for insurance and his PCP is Tessie Law. EMR was reviewed. Per MD, pt with hx of CVA with PEG tube and residual right sided weakness. Nonverbal. Supportive fianc? at bedside. Pt has a hx of admission in May 2021 of this year for UTI, GI bleed and asymptomatic COVID. Patient lives with his significant other Cristina who is also his DPOA. patient has had multiple strokes in the past and is not Aphasia and unable to verbalize his needs. He does answer yes no questions but his significant other helps to work with him on this. patient is currently wheelchair bound and has lt sided weakness form previous strokes. Patient works with PT, OT and speech on an outpatient basis and has a caregiver and his significant other who help with all his ADLs and needs at home. Patients Significant other Cristina confirms hat they do not need any other resources at this time and do not want SNF. Plan: SW to follow closely for possible d/c home tomorrow pending progress and no PT/OT ordered at this time as pt w/c bound at baseline. SW to follow for any further identified discharge planning needs. NALINI Feliciano Discharge Planning/Care Management Advanced directive, confirm from FAMILY Start: 11/02/21 21:49 Freq: Q24H Status: Active Protocol: Document 11/04/21 15:10 MELANIA (Rec: 11/04/21 15:10 MELANIA [id number]) Advance Directive, confirm on record Time 15:10 Person contacted Cristina Copy received No CM Discharge Assessment Start: 11/05/21 11:18 Freq: Status: Active Protocol: Document 11/05/21 11:18 BF (Rec: 11/05/21 11:20 BF [id number]) Discharge Planning Assessment Assigned Lead Sustainability Specialist NALINI Giron DPOA/Assigned Designee Name Sig Other Cristina Crain Contact Information [phone] Advance Directives? Yes Advance Directives on File No History Provided By Patient,Significant Other, Medical Record Has Patient been admitted in last 30 No days? Prior Living Arrangements House Household Members significant other,caregiver Type of transporation used prior to Relies on Others admit Independent with ADL's No Is patient alert and oriented? Yes Needs Assistance With Bathing,Meal Prep,Managing Medications,Home Chores / Shopping Caregiver for Another No DME Already Rented / Owned Wheelchair,Elevated Toilet Seat Patient/Family Preference OP PT Therapy,OP OT Therapy,OP MANAGER WOUND CARE Therapy Barriers to Discharge No Discharge Plan Home Transportation Arrangement Sig Other to provide transport home Referrals Initiated None needed Review Status In Process Please Provide Date Initial DC 11/05/21 Assessment Was Performed Next Review Type Continued Stay Review
[2021-11-05 12:11] VITALS: BP 130/60; PULSE 91; RESP 17; TEMP 36.8; O2SAT 96
[2021-11-05 17:00] VITALS: BP 133/72; PULSE 92; RESP 16; TEMP 37.1; O2SAT 97
--- NOTE | 2021-11-05 19:54 | PC.NURSE ---
pt tollerated tube feeding well, RN did tube feeding through PEG tube today around 0830, 1015, 1300, 1640 and 1930. Bolus feeding was done per protocol with about 60ml water prior to feeding, and about 260ml Jevity1.2 and then another flush with about 80ml water. Pt had large bm brief change, kerry care and barrier crm done around 1830 and is now lying comfortably in bed.
[2021-11-05 20:00] VITALS: BP 138/81; PULSE 82; RESP 19; TEMP 37.4; O2SAT 99
[2021-11-05] MEDS: cefTRIAXone 1,000 MG in SODIUM CHLORIDE 0.9% 100 ML 200 MG IV (21:17)
[2021-11-06] VITALS: BP 136/67; PULSE 87; RESP 16; TEMP 36.7; O2SAT 98
[2021-11-06 04:00] VITALS: BP 136/61; PULSE 78; RESP 17; TEMP 36.9; O2SAT 98
--- NOTE | 2021-11-06 05:57 | PC.NURSE ---
Shift Note: Patient was aphasic and has impaired speech due to hx of CVA, slightly delayed, alert and obeys commands, denies any pain or discomfort. Vitals signs stable and within acceptable limits, no distress noted. PEG tube in placed at epigatric area, patent and intact. Young cath in placed with adequate urine output. Had one bowel movement. Strict aspiration precautions observed, feeding well tolerated. Safety precautions maintained, call swanson within reach.
[2021-11-06 08:01] VITALS: BP 143/69; PULSE 86; RESP 18; TEMP 36.7; O2SAT 97
[2021-11-06] MEDS: PANTOPRAZOLE 40 MG VIAL IV (08:13)
[2021-11-06 10:13] LABS: Add Manual Diff / Slide Review NO; Basophils Absolute Auto 100 /uL (0-100); Basophils Percent Auto 0.8 % (0-2); Eosinophils Absolute Auto 200 /uL (0-450); Eosinophils Percent Auto 2.7 % (2-4); Hematocrit 27.1 % (41-53); Hemoglobin 8.7 g/dL (13.5-17.5); Lymphocytes Absolute Auto 800 /uL (1100-4500); Lymphocytes Percent Auto 11.9 % (25-40); Mean Corpuscular HGB Conc 32.1 % (30-36); Mean Corpuscular Hemoglobin 24.4 PG (26-34); Mean Corpuscular Volume 75.9 fL (80-100); Monocytes Absolute Auto 400 /uL (0-900); Monocytes Percent Auto 6.3 % (3-14); Neutrophils Absolute Auto 5500 /uL (1500-7000); Neutrophils Percent Auto 78.3 % (50-75); Platelet Count 193 X10^3/uL (150-400); Red Blood Cell Count 3.57 X10^6/uL (4.5-5.9); Red Cell Distribution Width 20.6 % (11.6-14.8)
[2021-11-06 10:27] LABS: BUN Creatinine Ratio 26.2 (6-22); Blood Urea Nitrogen 32 mg/dL (9-20); Calcium 8.2 mg/dL (8.4-10.2); Carbon Dioxide 25 mmol/L (22-32); Chloride 113 mmol/L (98-107); Estimated Glomerular Filt Rate > 60 mL/min (>60); Glucose 161 mg/dL (80-110); HEMOLYSIS < 15 (0-50); Potassium 4.4 mmol/L (3.4-5.1); Sodium 142 mmol/L (137-145)
[2021-11-06 11:05] LABS: Anisocytosis 2+; Hypochromasia 1+; Microcytosis 2+
[2021-11-06 11:38] VITALS: BP 136/61; PULSE 95; RESP 20; TEMP 36.5; O2SAT 98
--- NOTE | 2021-11-06 11:45 | PM.DS.1 ---
History of Present Illness History of Present Illness Date Patient Seen: 11/02/21 Time Patient Seen: 20:30 Chief complaint: Weakness, Low BP Narrative: Mr. 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 Patient has been noted by family to sleep more frequently for a couple months. There was one episode a few weeks ago with bright red blood noted, but no other bleeding or black stools noted. He did have vomiting 4-5 days ago, but no blood noted. He intermittently does not feel hungry and declines tube feeds. He has previous GI bleed, after which family says his aspirin was stopped, but plavix continued. This was thought possibly secondary to upper GI bleed and he was placed on protonix, but protonix has since been stopped. His family noted he was weaker than normal, unable to transfer, he did not seem as energetic and was therefore brought to the ED. He did not have dizziness, lightheaded, chest pain, shortness of breath, fevers, abdominal pain. EMS did not initially his blood pressure was not measurable. He was started on epinephrine In the ED workup was done, vitals notable for heart rate 110s, blood pressure systolic in the 60s. Central line placed. Labs notable for WBC 6.8, hgb 4.2, plts 279. INR 1.1. Na 156, K 5.2, BUN 75, creatinine 2.0. trop negative. Lactate 4.5. He was transfused 2U PRBC and repeat hgb 6.5. He was ordered for 2U more PRBC. Repeat hgb 9, lactate improved to 1.1. He was ordered for IV protonix. UA was positive and he was started on IV ceftriaxone. He was admitted for further treatment. Discharge Providers Provider Date of admission: 11/02/21 20:23 Discharge Date: 11/06/21 Primary care physician: Tessie Law MD Consults: 11/02/21 21:20 Consult to Dietitian, Adult Routine Comment: Reason For Exam: tube feeds Consult to General Surgery Routine Comment: Consulting Provider: Avery De La Rosa Reason for consultation: gi bleed Has provider been notified: Yes Discharge provider: Buddy Gomez Summary Hospital Course Discharge Diagnosis: Acute blood loss anemia, GI bleeding Hospital Course: Acute blood loss anemia ?hgb remained stable, 8.1 on discharge, surgery evaluated, he added pantoprazole ?LEONORA with hyperkalemia - cr /bun improved, resolved,hyperkalemia resolved ?Hypernatremia resolved ?UTI completed IV ceftriaxone treatment History of CVA with PEG tube and residual right sided weakness stopped clopidogrel, would defer further changes to PCP and neurology ? Type 2 DM- remained on ?SSI Exam Vital Signs (past 8 hours): - 11/06/21 04:00 11/06/21 08:01 11/06/21 11:38 Temperature 98.4 F 98.1 F 97.7 F Pulse Rate 78 86 95 H Respiratory Rate 17 18 20 Blood Pressure 136/61 143/69 H 136/61 Pulse Oximetry 98 97 98 Oxygen Flow Rate 0 Oxygen Delivery Method Room Air Oxygen Flow Rate 0 Objective Labs Result Diagrams: 11/06/21 10:00 11/06/21 10:00 Labs: Laboratory Results - last 24 hr 11/06/21 11/06/21 10:00 10:00 WBC 7.0 RBC 3.57 L Hgb 8.7 L Hct 27.1 L MCV 75.9 L MCH 24.4 L MCHC 32.1 RDW 20.6 H Plt Count 193 Neut % (Auto) 78.3 H Lymph % (Auto) 11.9 L [place] % (Auto) 6.3 Eos % (Auto) 2.7 Baso % (Auto) 0.8 Neut # (Auto) 5500 Lymph # (Auto) 800 L [place] # (Auto) 400 Eos # (Auto) 200 Baso # (Auto) 100 RBC Morphology See below Hypochromasia 1+ H Anisocytosis 2+ H Microcytosis 2+ H Sodium 142 Potassium 4.4 Chloride 113 H Carbon Dioxide 25 BUN 32 H Creatinine 1.22 Estimated GFR > 60 BUN/Creatinine Ratio 26.2 H Glucose 161 H Calcium 8.2 L PFSH Medical History Aphasia as late effect of stroke History of stroke within last year Surgical History S/P percutaneous endoscopic gastrostomy (PEG) tube placement Family History Mother Myocardial infarction Father Alcoholism Social History marital status: unmarried,living together household members: significant other and caregiver lives independently: Yes caregiver/support person: Yes 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 [place] Smoking Status: Former smoker alcohol intake: former Discharge Plan Discharge Plan Patient Disposition: Home Nursing Discharge Comment: f/u PCP in 2 days Discharge orders & Medications Prescriptions: New pantoprazole 40 mg tablet,delayed release (DR/EC) 40 mg PO DAILY Qty: 30 0RF Continued famotidine 20 mg Tablet 20 mg feeding tube DAILY ferrous sulfate 300 mg (60 mg iron)/5 mL liquid 300 mg feeding tube 3XW lisinopril 2.5 mg Tablet 2.5 mg feeding tube DAILY simvastatin 5 mg Tablet 5 mg feeding tube QPM metformin 500 mg Tablet 500 mg PO BID gemfibrozil 600 mg Tablet 600 mg feeding tube BID ascorbic acid (vitamin C) 500 mg Tablet,Chewable 500 mg feeding tube DAILY escitalopram oxalate 10 mg Tablet 10 mg feeding tube DAILY trazodone 50 mg Tablet 25 mg feeding tube BEDTIME PRN (Reason: DEPRESSION) Discontinued clopidogrel 75 mg Tablet 75 mg feeding tube DAILY Follow up/Referrals: Tessie Law MD [Primary Care Provider] - Diet/Activity/Treatments Diet: Diet as Tolerated Discharge Data Primary Care Provider: Tessie Law Quality VTE Deep Vein Thrombosis/Pulmonary Embolism Present on Admission: No
[2021-11-06] MEDS: INSULIN LISPRO 100 UNIT/ML 3ML VIAL SUBCUT (12:02)
--- NOTE | 2021-11-06 13:10 | CM.DPC ---
DCP Discharge Home Per MD, pt has been tolerating his PEG tube feeds, stooling and bm and normal labs now today and medically stable to d/c home today with no identified barriers to discharge. Per RN, pt seems back to baseline and d/c instructions to be given and no concerns at this time. Plan: Patient to d/c home today via Sig Other POV and pt w/c bound at baseline and has in-home caregiver assist as well as Sig Other. Bree Kemp MSW
--- NOTE | 2021-11-06 13:12 | DIET.CONS2 ---
Dietary Inpatient Consultation Note Admission Date: 11/02/2021 20:23 Pt tolerating TF at goal. Plan for d/c today. Diet: 11/04/21 Dinner Tube Feeding Diet Diet Modifications: TF Supplement type: Jevity 1.2 wolf TF mode of delivery: Bolus Starting flow rate mL/hr: 0 Flow rate goal mL/hr: 0 Titration Schedule to reach Goal Rate: 0 Max total daily volume in mL: 2,099 Free fluid: 140 Free Water Frequency: Q4H Comment: 260 ml gravity feed 6x/day: 0800, 1000, 1300, 1600, 1900, 2100.H20 w/ feeds Nutrition Type of Feeding Tube PEG 11/06/21 13:11 Type of Feeding Tube PEG 11/04/21 18:59 Type of Feeding Tube PEG 11/04/21 16:22 Electronically Signed by: Teresa Tejeda 11/06/21 13:12 Clinical Dietitian [address] [id number]
--- NOTE | 2021-11-06 17:23 | PC.NURSE ---
IV removed and pizarro removed. family said they will give the 4pm feeding. dc instructions and scripts given.
== END 2021-11-06 16:30 | disposition home or self-care (01) | DRG 378 ==
LOC: ED 20:15 → AC 20:24 → ICU 11-03 01:39 → AC 11-04 20:11
PROVIDERS: Internal Medicine; Internal Medicine Critical Care Medicine; Admitting Provider Internal Medicine; Emergency Provider Emergency Medicine; PCP Family Medicine; Referring Provider Emergency Medicine; Visit Provider Internal Medicine
DX: K92.2 Gastrointestinal hemorrhage, unspecified (principal); D62 Acute posthemorrhagic anemia; N17.9 Acute kidney failure, unspecified; E87.0 Hyperosmolality and hypernatremia; N39.0 Urinary tract infection, site not specified; I69.951 Hemiplegia and hemiparesis following unspecified cerebrovascular disease affecting right dominant side; E87.5 Hyperkalemia; E11.9 Type 2 diabetes mellitus without complications; I69.920 Aphasia following unspecified cerebrovascular disease; E78.5 Hyperlipidemia, unspecified; I10 Essential (primary) hypertension; Z20.822 Contact with and (suspected) exposure to COVID-19; Z93.1 Gastrostomy status; Z87.891 Personal history of nicotine dependence; Z79.01 Long term (current) use of anticoagulants; Z79.84 Long term (current) use of oral hypoglycemic drugs
CPT/HCPCS: 36415; 36430; 36556; 36592; 71045; 74176; 76770; 80048; 80053; 81001; 82550; 82570; 82962; 83010; 83605; 83615; 84300; 84484; 85025; 85610; 86850; 86900; 86901; 87040; 87077; 87086; 87186; 87635; 87797; 93005; 93010; 94760; 96365; 96375; 99284; C9803; P9016; C9113; J0696; J1815; J1940

== ENCOUNTER → 2021-12-06 10:09 | Outpatient (CLI) | payer MEDICARE, MEDICAID, OTHER, SELFPAY ==
[2021-11-02 21:06] VITALS: BMI 23.6
[2021-12-06 11:42] LABS: Add Manual Diff / Slide Review NO; Basophils Absolute Auto 0 /uL (0-100); Basophils Percent Auto 0.6 % (0-2); Eosinophils Absolute Auto 300 /uL (0-450); Eosinophils Percent Auto 4.7 % (2-4); Hematocrit 32.3 % (41-53); Hemoglobin 10.6 g/dL (13.5-17.5); Lymphocytes Absolute Auto 1600 /uL (1100-4500); Lymphocytes Percent Auto 26.1 % (25-40); Mean Corpuscular HGB Conc 32.7 % (30-36); Mean Corpuscular Hemoglobin 26.6 PG (26-34); Mean Corpuscular Volume 81.3 fL (80-100); Monocytes Absolute Auto 400 /uL (0-900); Monocytes Percent Auto 6.4 % (3-14); Neutrophils Absolute Auto 3900 /uL (1500-7000); Neutrophils Percent Auto 62.2 % (50-75); Platelet Count 216 X10^3/uL (150-400); Red Blood Cell Count 3.97 X10^6/uL (4.5-5.9); White Blood Cell Count 6.2 X10^3/uL (4.5-11.0)
== END ==
PROVIDERS: PCP Family Medicine; Referring Provider Family Medicine; Visit Provider Family Medicine
DX: D50.8 Other iron deficiency anemias (principal); K92.2 Gastrointestinal hemorrhage, unspecified
CPT/HCPCS: 36415; 85025

== ENCOUNTER 2022-05-01 10:27 | Emergency (ER) | payer MEDICARE, MEDICAID, OTHER, SELFPAY ==
[2022-03-11 04:17] VITALS: BMI 23.6
[2022-05-01 10:31] VITALS: BP 123/55; PULSE 87; RESP 15; TEMP 36.2; O2SAT 100; BMI 23.1
[2022-05-01 11:30] LABS: Add Manual Diff / Slide Review NO; Basophils Absolute Auto 0 /uL (0-100); Basophils Percent Auto 0.7 % (0-2); Eosinophils Absolute Auto 300 /uL (0-450); Eosinophils Percent Auto 4.6 % (2-4); Hematocrit 29.1 % (41-53); Hemoglobin 9.4 g/dL (13.5-17.5); Lymphocytes Absolute Auto 1100 /uL (1100-4500); Mean Corpuscular HGB Conc 32.3 % (30-36); Mean Corpuscular Hemoglobin 24.4 PG (26-34); Mean Corpuscular Volume 75.7 fL (80-100); Monocytes Absolute Auto 500 /uL (0-900); Monocytes Percent Auto 8.2 % (3-14); Neutrophils Absolute Auto 3800 /uL (1500-7000); Neutrophils Percent Auto 66.5 % (50-75); Platelet Count 293 X10^3/uL (150-400); Red Blood Cell Count 3.84 X10^6/uL (4.5-5.9); Red Cell Distribution Width 16.3 % (11.6-14.8); White Blood Cell Count 5.7 X10^3/uL (4.5-11.0)
[2022-05-01 11:36] LABS: Prothrombin Time 10.9 SECONDS (10.1-12.7)
[2022-05-01 11:39] LABS: PTT Partial Thromboplastin Tim 53 SECONDS (26-36)
[2022-05-01 11:40] LABS: Alanine Aminotransferase 36 IU/L (<50); Albumin 4.4 g/dL (3.5-5.0); Albumin Globulin Ratio 1.1 (1.0-2.8); Alkaline Phosphatase 227 U/L (38-126); Aspartate Aminotransferase 44 IU/L (17-59); BUN Creatinine Ratio 31.5 (6-22); Bilirubin Total 0.5 mg/dL (0.2-1.3); Blood Urea Nitrogen 47 mg/dL (9-20); Calcium 9.2 mg/dL (8.4-10.2); Carbon Dioxide 28 mmol/L (22-32); Chloride 105 mmol/L (98-107); Estimated Glomerular Filt Rate 50 mL/min (>60); Glucose 93 mg/dL (80-110); HEMOLYSIS < 15 (0-50); Sodium 143 mmol/L (137-145); Total Protein 8.4 g/dL (6.3-8.2)
--- NOTE | 2022-05-01 14:35 | ED_ITS ---
HPI - Recheck/Abnormal Lab/Rx General Chief Complaint: Recheck/Abnormal Lab/Rx Stated Complaint: blood transfusion,sent over by provider Time Seen by Provider: 05/01/22 14:11 Source: patient Mode of arrival: Wheelchair History of Present Illness HPI narrative: Patient is a 72-year-old male history of 5 strokes he is mute nonverbal he has a feeding tube frequently has low hemoglobin and hematocrit requiring blood transfusions presents today concern for need for blood transfusion. He developed cold-like symptoms 2 days ago. Went into the doctor yesterday to see if they can use [id number] medication for him blood work was checked his hemoglobin was found to be 7 I do not have reports of this but this is per patient's courtney who is the primary historian. He has not passed out maintaining his normal mental status. Typically he gets extremely weak but seems be doing okay. There was possible concern for pneumonia but he does not have fever or significant cough. Related Data Home Medications Medication Instructions Recorded Confirmed ascorbic acid (vitamin C) 500 mg 500 mg feeding tube DAILY 11/02/21 03/14/22 chewable tablet escitalopram oxalate 10 mg tablet 10 mg feeding tube DAILY 11/02/21 03/14/22 famotidine 20 mg tablet 20 mg feeding tube DAILY 11/02/21 03/14/22 ferrous sulfate 300 mg (60 mg 300 mg feeding tube 3XW 11/02/21 03/14/22 iron)/5 mL oral liquid gemfibrozil 600 mg tablet 600 mg feeding tube BID 11/02/21 03/14/22 lisinopril 2.5 mg tablet 2.5 mg feeding tube DAILY 11/02/21 03/14/22 metformin 500 mg tablet 500 mg PO BID 11/02/21 03/14/22 simvastatin 5 mg tablet 5 mg feeding tube QPM 11/02/21 03/14/22 trazodone 50 mg tablet 25 mg feeding tube BEDTIME PRN 11/02/21 03/14/22 DEPRESSION Previous Rx's Medication Instructions Recorded pantoprazole 40 mg tablet,delayed 40 mg PO DAILY #30 tabs 11/06/21 release Allergies Allergy/AdvReac Type Severity Reaction Status Date / Time No Known Drug Allergies Allergy Verified 05/01/22 10:31 Review of Systems Review of Systems Narrative: Nonverbal history contained from dmitriy GONZALEZ Unobtainable: Unobtainable due to medical condition Patient History Medical History Aphasia as late effect of stroke History of stroke within last year Surgical History S/P percutaneous endoscopic gastrostomy (PEG) tube placement Family History Mother Myocardial infarction Father Alcoholism Social History marital status: unmarried,living together household members: significant other and caregiver lives independently: Yes caregiver/support person: Yes 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 RESPIRATORY: Breath sounds equal bilaterally, no wheezes rales or rhonchi. ABDOMEN: Soft, feeding tube in place soft nondistended EXTREMITIES: Normal range of motion, no clubbing or edema. Neurovascularly intact NEUROLOGICAL: Sitting in wheelchair awake alert nodding good eye contact at baseline per fiance SKIN: Warm, dry, no laceration, no petechiae, no rashes or lesions. Course Orders Ordered: ED Orders 05/01/22 11:11 Complete Blood Count AUTO DIFF Stat Comprehensive Metabolic Panel Stat Partial Thromboplastin Time Stat Prothrombin Time INR Stat Type and Screen Stat Discontinued Medications Ondansetron HCl (Ondansetron 4 Mg Odt) 4 mg SL NOW PRN PRN Reason: Nausea And Vomiting Vital Signs Vital signs: Vital Signs - 8 hr 05/01/22 10:31 Temperature 97.2 F L Pulse Rate 87 Respiratory Rate 15 Blood Pressure 123/55 L Pulse Oximetry 100 Oxygen Delivery Method Room Air MDM - Recheck/Abnormal Lab/Rx Lab Data Result diagrams: 05/01/22 11:11 05/01/22 11:11 Labs: Lab Results 05/01/22 05/01/22 05/01/22 Range/Units 11:11 11:11 11:11 WBC 5.7 (4.5-11.0) X10^3/uL RBC 3.84 L (4.5-5.9) X10^6/uL Hgb 9.4 L (13.5-17.5) g/dL Hct 29.1 L (41-53) % MCV 75.7 L (80-100) fL MCH 24.4 L (26-34) PG MCHC 32.3 (30-36) % RDW 16.3 H (11.6-14.8) % Plt Count 293 (150-400) X10^3/uL Neut % (Auto) 66.5 (50-75) % Lymph % (Auto) 20.0 L (25-40) % [place] % (Auto) 8.2 (3-14) % Eos % (Auto) 4.6 H (2-4) % Baso % (Auto) 0.7 (0-2) % Neut # (Auto) 3800 (4561-3593) /uL Lymph # (Auto) 1100 (8974-1767) /uL [place] # (Auto) 500 (0-900) /uL Eos # (Auto) 300 (0-450) /uL Baso # (Auto) 0 (0-100) /uL PT 10.9 (10.1-12.7) SECONDS INR 1.0 (0.9-1.3) APTT 53 H (26-36) SECONDS Sodium 143 (137-145) mmol/L Potassium 5.0 (3.4-5.1) mmol/L Chloride 105 (98-107) mmol/L Carbon Dioxide 28 (22-32) mmol/L BUN 47 H (9-20) mg/dL Creatinine 1.49 H (0.66-1.25) mg/dL Estimated GFR 50 L (>60) mL/min BUN/Creatinine Ratio 31.5 H (6-22) Glucose 93 (80-110) mg/dL Calcium 9.2 (8.4-10.2) mg/dL Total Bilirubin 0.5 (0.2-1.3) mg/dL AST 44 (17-59) IU/L ALT 36 (<50) IU/L Alkaline Phosphatase 227 H (38-126) U/L Total Protein 8.4 H (6.3-8.2) g/dL Albumin 4.4 (3.5-5.0) g/dL Globulin 4.0 (1.7-4.1) g/dL Albumin/Globulin Ratio 1.1 (1.0-2.8) Blood Type Antibody Screen 05/01/22 Range/Units 11:11 WBC (4.5-11.0) X10^3/uL RBC (4.5-5.9) X10^6/uL Hgb (13.5-17.5) g/dL Hct (41-53) % MCV (80-100) fL MCH (26-34) PG MCHC (30-36) % RDW (11.6-14.8) % Plt Count (150-400) X10^3/uL Neut % (Auto) (50-75) % Lymph % (Auto) (25-40) % [place] % (Auto) (3-14) % Eos % (Auto) (2-4) % Baso % (Auto) (0-2) % Neut # (Auto) (7748-4965) /uL Lymph # (Auto) (4134-1669) /uL [place] # (Auto) (0-900) /uL Eos # (Auto) (0-450) /uL Baso # (Auto) (0-100) /uL PT (10.1-12.7) SECONDS INR (0.9-1.3) APTT (26-36) SECONDS Sodium (137-145) mmol/L Potassium (3.4-5.1) mmol/L Chloride (98-107) mmol/L Carbon Dioxide (22-32) mmol/L BUN (9-20) mg/dL Creatinine (0.66-1.25) mg/dL Estimated GFR (>60) mL/min BUN/Creatinine Ratio (6-22) Glucose (80-110) mg/dL Calcium (8.4-10.2) mg/dL Total Bilirubin (0.2-1.3) mg/dL AST (17-59) IU/L ALT (<50) IU/L Alkaline Phosphatase (38-126) U/L Total Protein (6.3-8.2) g/dL Albumin (3.5-5.0) g/dL Globulin (1.7-4.1) g/dL Albumin/Globulin Ratio (1.0-2.8) Blood Type O Positive Antibody Screen Negative MDM Narrative Medical decision making narrative: Patient has multiple comorbidities including 5 strokes nonverbal intermittent anemia today his blood work he is some mild anemia but not requiring blood transfusion his vitals are stable. Offered viral swab and chest x-ray however declined. Lung sounds are clear and he is in no respiratory distress. Discussed with courtney if his symptoms should worsen or if he is more confused and to return to ED for further workup and evaluation. Discharge Plan Departure Patient Disposition: Home Clinical Impression: Feared complaint without diagnosis, Chronic anemia Instructions: Anemia Activity Restrictions/Additional Instructions: *You have been diagnosed with chronic anemia *What to do: At this time no need for blood transfusion. *Continue to take medications as directed *Follow up with your primary care provider in 2-3 days or call [phone] *Return to ER if you should have increasing confusion shortness of breath fever cough altered mental status or any new, worsening or concerning symptoms Prescriptions: No Action famotidine 20 mg Tablet 20 mg feeding tube DAILY ferrous sulfate 300 mg (60 mg iron)/5 mL liquid 300 mg feeding tube 3XW lisinopril 2.5 mg Tablet 2.5 mg feeding tube DAILY simvastatin 5 mg Tablet 5 mg feeding tube QPM metformin 500 mg Tablet 500 mg PO BID gemfibrozil 600 mg Tablet 600 mg feeding tube BID ascorbic acid (vitamin C) 500 mg Tablet,Chewable 500 mg feeding tube DAILY escitalopram oxalate 10 mg Tablet 10 mg feeding tube DAILY trazodone 50 mg Tablet 25 mg feeding tube BEDTIME PRN (Reason: DEPRESSION) pantoprazole 40 mg tablet,delayed release (DR/EC) 40 mg PO DAILY Qty: 30 0RF Referrals: Tessie Law MD [Primary Care Provider] - Visit Report Forms: Patient Portal/API
== END 2022-05-01 15:33 | disposition home or self-care (01) ==
PROVIDERS: Emergency Provider Emergency Medicine; PCP Family Medicine
DX: D64.9 Anemia, unspecified (principal)
CPT/HCPCS: 36415; 80053; 85025; 85610; 85730; 86850; 86900; 86901; 99283

== ENCOUNTER 2023-05-31 11:37 | Emergency (ER) | payer MEDICARE, MEDICAID, OTHER, SELFPAY ==
[2022-03-11 04:17] VITALS: BMI 23.6
[2023-05-31 11:46] VITALS: BP 108/70; PULSE 75; RESP 16; TEMP 36.6; O2SAT 100; BMI 23.2
--- NOTE | 2023-05-31 11:56 | DI.RAD.S_ITS ---
PROCEDURE: XR CHEST 1V INDICATIONS: chest pain TECHNIQUE: One view of the chest was acquired. COMPARISON: [facility], CR, XR CHEST 1V, 11/02/2021, 14:41. FINDINGS: Surgical changes and devices: None. Lungs and pleura: Lungs are clear. No pleural effusions or pneumothorax. Mediastinum: Mediastinal contours appear normal. Heart size is normal. Bones and chest wall: No suspicious bony lesions. Overlying soft tissues appear unremarkable. IMPRESSION: No acute cardiopulmonary abnormality is seen. Dictated by: Bridgett Malagon MD, PhD on 05/31/2023 at 12:42 Approved by: Bridgett Malagon MD, PhD on 05/31/2023 at 12:42
[2023-05-31 12:29] LABS: Add Manual Diff / Slide Review NO; Basophils Absolute Auto 0 /uL (0-100); Basophils Percent Auto 0.5 % (0-2); Eosinophils Absolute Auto 100 /uL (0-450); Hematocrit 29.4 % (41-53); Hemoglobin 9.7 g/dL (13.5-17.5); Lymphocytes Absolute Auto 900 /uL (1100-4500); Lymphocytes Percent Auto 18.9 % (25-40); Mean Corpuscular HGB Conc 32.9 % (30-36); Mean Corpuscular Hemoglobin 26.8 PG (26-34); Mean Corpuscular Volume 81.3 fL (80-100); Monocytes Absolute Auto 400 /uL (0-900); Neutrophils Absolute Auto 3200 /uL (1500-7000); Neutrophils Percent Auto 69.6 % (50-75); Platelet Count 204 X10^3/uL (150-400); Red Blood Cell Count 3.61 X10^6/uL (4.5-5.9); Red Cell Distribution Width 16.2 % (11.6-14.8); White Blood Cell Count 4.6 X10^3/uL (4.5-11.0)
[2023-05-31 12:31] VITALS: PULSE 69; RESP 20; O2SAT 99
--- NOTE | 2023-05-31 12:34 | ED_ITS ---
HPI - Chest Pain General Chief Complaint: Chest Pain Stated Complaint: low bp, hemoglobin Time Seen by Provider: 05/31/23 12:50 Source: patient, family, RN notes reviewed, old records reviewed and other (caregiver) Mode of arrival: Family Vehicle Limitations: other Limitations: language barrier (nonverbal 2nd prior cva) History of Present Illness HPI narrative: 73-year-old male history 5 prior strokes who is/nonverbal and uses PEG tube for feeding, dyslipidemia, hypertension, chronic kidney disease and prior GI bleeds requiring blood transfusion. Patient presents today had case management meeting yesterday part of their questions was asking if the patient had pain and he indicated he has had headaches since May 20. They have been in the left posterior region where some of his prior strokes have been. Patient indicated that headaches are not daily every other day or 2 or 3 days at a level of 2 to 3/10. Patient indicates no headache today. [place] his blood pressure was 1/0 2-94 systolic with a diastolic of 50-55 and had point of care blood draw which showed hemoglobin in the 7 range require possible transfusion. Patient was brought by private vehicle. Patient denies any headache today, denies any chest pain, denies any chest pressure, no shortness breast, no new weakness or alterations in mentation according to patient or family. No fevers or chills. No nausea or vomiting. He uses a PEG tube for feeds and medications and has not had any issues. No new swelling in extremities. He does have chronic diarrhea and is on cholestyramine for this, no new urinary issues. Family notes he was having issues with potassium and was changed to a renal formula which has been helpful. Patient's recently had his simvastatin increased from 5-10 mg, he also had his Plavix stopped secondary to GI bleeds in the last year. Had a transfusion in March when he was hospitalized. Patient indicates no issues or concerns for himself otherwise today. No known drug allergies. No tobacco, alcohol or recreational drugs. Related Data Home Medications Medication Instructions Recorded Confirmed ascorbic acid (vitamin C) 500 mg 500 mg feeding tube DAILY 11/02/21 03/14/22 chewable tablet escitalopram oxalate 10 mg tablet 10 mg feeding tube DAILY 11/02/21 03/14/22 famotidine 20 mg tablet 20 mg feeding tube DAILY 11/02/21 03/14/22 ferrous sulfate 300 mg (60 mg 300 mg feeding tube 3XW 11/02/21 03/14/22 iron)/5 mL oral liquid gemfibrozil 600 mg tablet 600 mg feeding tube BID 11/02/21 03/14/22 lisinopril 2.5 mg tablet 2.5 mg feeding tube DAILY 11/02/21 03/14/22 metformin 500 mg tablet 500 mg PO BID 11/02/21 03/14/22 simvastatin 5 mg tablet 5 mg feeding tube QPM 11/02/21 03/14/22 trazodone 50 mg tablet 25 mg feeding tube BEDTIME PRN 11/02/21 03/14/22 DEPRESSION Previous Rx's Medication Instructions Recorded pantoprazole 40 mg tablet,delayed 40 mg PO DAILY #30 tabs 11/06/21 release Allergies Allergy/AdvReac Type Severity Reaction Status Date / Time No Known Drug Allergies Allergy Verified 05/01/22 10:31 Review of Systems Review of Systems ROS Unobtainable: All systems reviewed & are unremarkable except as noted in HPI and below Patient History Medical History Aphasia as late effect of stroke History of stroke within last year Surgical History S/P percutaneous endoscopic gastrostomy (PEG) tube placement Family History Mother Myocardial infarction Father Alcoholism Social History marital status: unmarried,living together household members: significant other and caregiver lives independently: Yes caregiver/support person: Yes 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 Patient alert, nodding with good eye contact at baseline. Patient is nonverbal. HEENT: Atraumatic, pupils are equal round reactive to light, extraocular movements are intact, nares are clear, there is no conjunctival pallor. Throat is clear without any exudates, erythema, tonsillar enlargement or uvular deviation, full range of motion of neck. HEART: Regular rate and rhythm without murmur, clicks, rubs. LUNGS:Lungs clear to auscultation, no wheezes, rales, crackles, chest moves symmetrically ABD:bowel sounds normal, soft, non-tender, no guarding, rebound, rigidity, no masses noted, no hepatosplenomegaly, PEG Tube in place, clean, dry and intact. :No CVA tenderness MSCL: Non-tender, no muscle atrophy, patient has movement of right upper extremity. NEURO:CN 2-12 intact, sensation normal Initial Vital Signs Initial Vital Signs: Vital Signs Temperature 97.9 F 05/31/23 11:46 Pulse Rate 75 05/31/23 11:46 Respiratory Rate 16 05/31/23 11:46 Blood Pressure 108/70 05/31/23 11:46 Pulse Oximetry 100 05/31/23 11:46 Oxygen Delivery Method Room Air 05/31/23 11:46 Course Orders Ordered: ED Orders 05/31/23 11:56 XR chest 1V Stat 05/31/23 12:12 EKG-12 Lead Stat 05/31/23 12:18 BNP [NT-proBNP (BNP-Adult 18+)] Stat Complete Blood Count AUTO DIFF Stat Comprehensive Metabolic Panel Stat Lipase Stat Magnesium Stat PTT Partial Thromboplastin [place] Stat Prothrombin Time INR Stat Troponin & CK Cardiac Panel Stat Type and Screen Stat 05/31/23 12:22 Covid-19 + FLU A/B + RSV - PCR Stat 05/31/23 12:52 CT head/brain wo con Stat 05/31/23 14:20 BMP [Basic Metabolic Panel] Stat Trop I [Troponin I] Stat 05/31/23 14:25 EKG-12 Lead Stat Discontinued Medications Aspirin (Aspirin 81 Mg Chew Tab) 324 mg PO NOW ONE Stop: 05/31/23 11:57 Last Admin: 05/31/23 11:57 Dose: Not Given Documented By: FREDA Sodium Chloride (Normal Saline 0.9%) 1,000 mls @ 1,000 mls/hr IV BOLUS ONE Stop: 05/31/23 13:53 Last Infusion: 05/31/23 14:07 Dose: Infused Documented By: Admin: 05/31/23 12:57 Dose: 1,000 mls/hr Documented By: ZULEIKA Vital Signs Vital signs: Vital Signs - 8 hr 05/31/23 11:46 05/31/23 12:31 05/31/23 15:21 Temperature 97.9 F Pulse Rate 75 69 76 Respiratory Rate 16 20 12 Blood Pressure 108/70 126/59 L Pulse Oximetry 100 99 98 Oxygen Delivery Method Room Air Room Air MDM - Chest Pain Lab Data 05/31/23 12:18 05/31/23 14:20 Labs: Lab Results 05/31/23 05/31/23 05/31/23 Range/Units 12:18 12:22 14:20 WBC 4.6 (4.5-11.0) X10^3/uL RBC 3.61 L (4.5-5.9) X10^6/uL Hgb 9.7 L (13.5-17.5) g/dL Hct 29.4 L (41-53) % MCV 81.3 (80-100) fL MCH 26.8 (26-34) PG MCHC 32.9 (30-36) % RDW 16.2 H (11.6-14.8) % Plt Count 204 (150-400) X10^3/uL Neut % (Auto) 69.6 (50-75) % Lymph % (Auto) 18.9 L (25-40) % [place] % (Auto) 8.0 (3-14) % Eos % (Auto) 3.0 (2-4) % Baso % (Auto) 0.5 (0-2) % Neut # (Auto) 3200 (0304-5323) /uL Lymph # (Auto) 900 L (2611-9238) /uL [place] # (Auto) 400 (0-900) /uL Eos # (Auto) 100 (0-450) /uL Baso # (Auto) 0 (0-100) /uL PT 11.1 (9.4-12.5) SECONDS INR 1.0 (0.9-1.3) APTT 47 H (25.1-36.5) SECONDS Sodium 136 L 136 L (137-145) mmol/L Potassium 5.4 H 5.6 H (3.4-5.1) mmol/L Chloride 100 105 (98-107) mmol/L Carbon Dioxide 29 27 (22-32) mmol/L BUN 48 H 48 H (9-20) mg/dL Creatinine 1.87 H 1.67 H (0.66-1.25) mg/dL Estimated GFR 38 L 43 L (>60) mL/min BUN/Creatinine Ratio 25.7 H 28.7 H (6-22) Glucose 110 91 (80-110) mg/dL Calcium 9.3 8.3 L (8.4-10.2) mg/dL Magnesium 2.7 H (1.6-2.3) mg/dL Total Bilirubin 0.4 (0.2-1.3) mg/dL AST 39 (17-59) IU/L ALT 47 (<50) IU/L Alkaline Phosphatase 235 H (38-126) U/L Total Creatine Kinase 28 L (55-170) U/L Troponin I 0.019 0.019 (0.01-0.034) ng/mL NT-Pro-B Natriuret Pep 6980 H (<125) pg/mL Total Protein 8.2 (6.3-8.2) g/dL Albumin 4.1 (3.5-5.0) g/dL Globulin 4.1 (1.7-4.1) g/dL Albumin/Globulin Ratio 1.0 (1.0-2.8) Lipase 142 (23-300) U/L SARS-CoV-2 (PCR) Positive H (Negative) Influenza A (RT-PCR) Flu a negative (NEGATIVE) Influenza B (RT-PCR) Flu b negative (NEGATIVE) RSV (PCR) Negative (Negative) Blood Type O Positive Antibody Screen Negative Imaging Data CT scan - head: Radiologist's Impression: Charlie Francis??73??M??1950 ? Allergy/Adv: No Known Drug Allergies (More??) Close Head CT (Signed) Bridgett Malagon - 05/31/23 Chest X-Ray (Signed) Bridgett Malagon - 05/31/23 Abdomen/Pelvis CT (Signed) Greg Dong - 11/03/21 Renal Ultrasound (Signed) Ernesto Olmstead - 11/02/21 Telemetry Strips 11/02/21 Chest X-Ray (Signed) Alfred Mendieta - 11/02/21 Chest X-Ray (Signed) Mikal Cortes - 09/08/21 Telemetry Strips 06/01/21 Launch?Image [address] [address] [address] Scan Report Signed Patient: Charlie Francis MR#: [id number] : 1950 Acct:[id number] Age/Sex: 73 / M Date of Service: 05/31/23 Loc: ED Accession Number: [id number] Procedure: CT head/brain wo con Ordering Provider: Judy Gillis D.O. PROCEDURE: CT HEAD/BRAIN WO CON INDICATIONS: [place] this week, hx of stroke nonverbal, no chest pain TECHNIQUE: Noncontrast 4.5 mm thick angled axial sections acquired from the foramen magnum to the vertex, with coronal and sagittal reformats. For radiation dose reduction, the following was used: automated exposure control, adjustment of mA and/or kV according to patient size. COMPARISON: [facility], CT, CT HEAD WITHOUT CONTRAST, 03/26/2021, 0:07. FINDINGS: Image quality: Diagnostic. CSF spaces: Basal cisterns are patent. No extra-axial fluid collections. The ventricles are symmetric in size and shape. Brain: No intracranial bleeds or masses. 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 There is cerebral volume loss for age, with resultant ventricular and sulcal prominence. There are periventricular and deep white matter chronic small vessel ischemic changes. 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 Skull and face: Chronic bilateral nasal bone fractures. Calvarium is intact, without suspicious lesions. Sinuses: Mild mucosal thickening in the left maxillary sinus. Small air-fluid levels in the bilateral maxillary sinuses. The mastoids are clear. IMPRESSION: No acute intracranial pathology. Dictated by: Bridgett Malagon MD, PhD on 05/31/2023 at 13:07 Approved by: Bridgett Malagon MD, PhD on 05/31/2023 at 13:10 Chest x-ray: Radiologist's Impression: [address] [address] XRay Report Signed Patient: Charlie Francis MR#: [id number] : 1950 Acct:[id number] Age/Sex: 73 / M Date of Service: 05/31/23 Loc: ED Accession Number: [id number] Procedure: XR chest 1V Ordering Provider: Judy Gillis D.O. PROCEDURE: XR CHEST 1V INDICATIONS: chest pain TECHNIQUE: One view of the chest was acquired. COMPARISON: [facility], CR, XR CHEST 1V, 11/02/2021, 14:41. FINDINGS: Surgical changes and devices: None. Lungs and pleura: Lungs are clear. No pleural effusions or pneumothorax. Mediastinum: Mediastinal contours appear normal. Heart size is normal. Bones and chest wall: No suspicious bony lesions. Overlying soft tissues appear unremarkable. IMPRESSION: No acute cardiopulmonary abnormality is seen. Dictated by: Bridgett Malagon MD, PhD on 05/31/2023 at 12:42 Approved by: Bridgett Malagon MD, PhD on 05/31/2023 at 12:42 ECG Data Attestation: I personally reviewed and interpreted this ECG as follows: Interpretation: NSR, rate 70, NH 144, QRS of 94, QTc 436. Patient appears to have elevation V1,V2 appears new from 11/03/21. EKG 2. Shows no dynamic changes appears similar to earlier today. Rate of 70 NH 148 QRS of 96 QTC 442. MDM Narrative Medical decision making narrative: 73 with history of prior strokes with significant deficits including being nonverbal. Patient is alert interactive at his normal baseline indicates that he has had headaches on and off for the past 12 days blood pressure [place] [facility] [place] he had but has normalized here. Was reportedly low hemoglobin at the clinic with their point of care but is 9.7 today. Patient had low blood pressure initially but was 120s in the room. Hemoglobin is baseline from past visits at 9.7, white count of 4.6 with platelets of 204. Patient has creatinine of 1.87 up from his most recent in April 2022 but has been up to 2 and appears his baseline is 1.3 range. Potassium is 5.4, sodium is 136, BUN 48 magnesium was 2.7 with a calcium of 9.3 LFTs are otherwise appropriate. BNP is 6900 with a troponin of 0.019. Patient is positive for covid on respiratoy panel EKG did show 1 mm elevation in V1 V2 but patient states he does not have any chest pain or pressure, no shortness of breath or other cardiac equivalent. His only complaint was headache on and off for the past 12 days. He does not have a headache today. Patient had 1L NS. Patient EKG changes maybe related to COVID infection he has had no chest pain, shortness of breath even on recheck. Troponin was repeated does not have any rise or change. Troponin is 0.19 on repeat. No dynamic changes appreciated. Renal function improved on repeat BNP potassium slightly elevated, discussed with patient family to have repeat check. He has on a renal diet with his feeds. Discharge Plan Departure Patient Disposition: Home Clinical Impression: COVID-19 virus infection, Serum potassium elevated Activity Restrictions/Additional Instructions: You tested positive for covid today. This may be causing your recent headaches. Your potassium is slightly elevated, please follow up with your physician to have it rechecked. Please return for new or worsening symptoms if you have chest pain, shortness of breath, lightheadedness or passing out, persistent vomiting, new swelling in her extremities or other new or concerning changes. Prescriptions: No Action famotidine 20 mg Tablet 20 mg feeding tube DAILY ferrous sulfate 300 mg (60 mg iron)/5 mL liquid 300 mg feeding tube 3XW lisinopril 2.5 mg Tablet 2.5 mg feeding tube DAILY simvastatin 5 mg Tablet 5 mg feeding tube QPM metformin 500 mg Tablet 500 mg PO BID gemfibrozil 600 mg Tablet 600 mg feeding tube BID ascorbic acid (vitamin C) 500 mg Tablet,Chewable 500 mg feeding tube DAILY escitalopram oxalate 10 mg Tablet 10 mg feeding tube DAILY trazodone 50 mg Tablet 25 mg feeding tube BEDTIME PRN (Reason: DEPRESSION) pantoprazole 40 mg tablet,delayed release (DR/EC) 40 mg PO DAILY Qty: 30 0RF Referrals: Tessie Law MD [Primary Care Provider] - Stand Alone Forms: Patient Portal/API
[2023-05-31 12:40] LABS: Prothrombin Time 11.1 SECONDS (9.4-12.5)
[2023-05-31 12:43] LABS: PTT Partial Thromboplastin Tim 47 SECONDS (25.1-36.5)
[2023-05-31 12:46] LABS: Alanine Aminotransferase 47 IU/L (<50); Albumin 4.1 g/dL (3.5-5.0); Alkaline Phosphatase 235 U/L (38-126); Aspartate Aminotransferase 39 IU/L (17-59); BUN Creatinine Ratio 25.7 (6-22); Bilirubin Total 0.4 mg/dL (0.2-1.3); Blood Urea Nitrogen 48 mg/dL (9-20); Calcium 9.3 mg/dL (8.4-10.2); Carbon Dioxide 29 mmol/L (22-32); Chloride 100 mmol/L (98-107); Creatine Kinase 28 U/L (55-170); Estimated Glomerular Filt Rate 38 mL/min (>60); Globulin 4.1 g/dL (1.7-4.1); Glucose 110 mg/dL (80-110); HEMOLYSIS < 15 (0-50); Lipase 142 U/L (23-300); Magnesium 2.7 mg/dL (1.6-2.3); Sodium 136 mmol/L (137-145); Total Protein 8.2 g/dL (6.3-8.2)
[2023-05-31 12:47] LABS: Potassium 5.4 mmol/L (3.4-5.1)
--- NOTE | 2023-05-31 12:52 | DI.CT.S_ITS ---
PROCEDURE: CT HEAD/BRAIN WO CON INDICATIONS: [place] this week, hx of stroke nonverbal, no chest pain TECHNIQUE: Noncontrast 4.5 mm thick angled axial sections acquired from the foramen magnum to the vertex, with coronal and sagittal reformats. For radiation dose reduction, the following was used: automated exposure control, adjustment of mA and/or kV according to patient size. COMPARISON: [facility], CT, CT HEAD WITHOUT CONTRAST, 03/26/2021, 0:07. FINDINGS: Image quality: Diagnostic. CSF spaces: Basal cisterns are patent. No extra-axial fluid collections. The ventricles are symmetric in size and shape. Brain: No intracranial bleeds or masses. 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 There is cerebral volume loss for age, with resultant ventricular and sulcal prominence. There are periventricular and deep white matter chronic small vessel ischemic changes. 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 Skull and face: Chronic bilateral nasal bone fractures. Calvarium is intact, without suspicious lesions. Sinuses: Mild mucosal thickening in the left maxillary sinus. Small air-fluid levels in the bilateral maxillary sinuses. The mastoids are clear. IMPRESSION: No acute intracranial pathology. Dictated by: Bridgett Malagon MD, PhD on 05/31/2023 at 13:07 Approved by: Bridgett Malagon MD, PhD on 05/31/2023 at 13:10
[2023-05-31 12:55] LABS: NT-proBNP (BNP-Adult 18+) 6980 pg/mL (<125)
[2023-05-31] MEDS: SODIUM CHLORIDE 0.9% 1,000 ML 1000 ML IV (12:57)
[2023-05-31 12:58] LABS: Troponin I 0.019 ng/mL (0.01-0.034)
[2023-05-31 13:27] LABS: Influenza A - CEPHEID Flu A NEGATIVE (NEGATIVE); Influenza B - CEPHEID Flu B NEGATIVE (NEGATIVE); Respiratory Syncytial Virus Negative (Negative)
[2023-05-31 13:28] LABS: COVID-19 CEPHEID 4-PLEX PCR POSITIVE (Negative)
[2023-05-31 14:43] LABS: BUN Creatinine Ratio 28.7 (6-22); Blood Urea Nitrogen 48 mg/dL (9-20); Calcium 8.3 mg/dL (8.4-10.2); Carbon Dioxide 27 mmol/L (22-32); Chloride 105 mmol/L (98-107); Estimated Glomerular Filt Rate 43 mL/min (>60); Glucose 91 mg/dL (80-110); HEMOLYSIS < 15 (0-50); Potassium 5.6 mmol/L (3.4-5.1); Sodium 136 mmol/L (137-145)
[2023-05-31 14:55] LABS: Troponin I 0.019 ng/mL (0.01-0.034)
[2023-05-31 15:21] VITALS: BP 126/59; PULSE 76; RESP 12; O2SAT 98
== END 2023-05-31 15:23 | disposition home or self-care (01) ==
PROVIDERS: Emergency Provider Emergency Medicine; PCP Family Medicine
DX: U07.1 COVID-19 (principal); E87.5 Hyperkalemia; R07.9 Chest pain, unspecified; Z79.899 Other long term (current) drug therapy
CPT/HCPCS: 0241U; 36415; 70450; 71045; 80048; 80053; 82550; 83690; 83735; 83880; 84484; 85025; 85610; 85730; 86850; 86900; 86901; 93005; 93010; 96360; 99284

== ENCOUNTER → 2024-06-01 11:08 | Outpatient (CLI) | payer MEDICARE, MEDICAID, SELFPAY ==
[2022-03-11 04:17] VITALS: BMI 23.6
--- NOTE | 2024-06-01 11:12 | DI.US.S_ITS ---
PROCEDURE: US SOFT TISSUE HEAD AND NECK INDICATIONS: Supraclavicular lymphadenopathy TECHNIQUE: Real-time scanning was performed of the neck region of interest, with image documentation. COMPARISON: None. Findings and impression: A prominent right supraclavicular lymph node measures 1.2 x 0.8 x 1.2 cm. It is slightly rounded with a small fatty hilum. Follow-up or sampling may be obtained depending on clinical history/suspicion for reactive lymph node versus malignancy. Dictated by: Naldo Quintana M.D. on 06/01/2024 at 14:27 Approved by: Naldo Quintana M.D. on 06/01/2024 at 14:28
[2024-06-01 12:10] LABS: Add Manual Diff / Slide Review NO; Basophils Absolute Auto 0 /uL (0-100); Basophils Percent Auto 0.3 % (0-2); Eosinophils Absolute Auto 200 /uL (0-450); Eosinophils Percent Auto 2.5 % (2-4); Hematocrit 35.2 % (41-53); Hemoglobin 12.3 g/dL (13.5-17.5); Lymphocytes Absolute Auto 1400 /uL (1100-4500); Lymphocytes Percent Auto 23.5 % (25-40); Mean Corpuscular Hemoglobin 30.9 PG (26-34); Mean Corpuscular Volume 88.3 fL (80-100); Monocytes Absolute Auto 400 /uL (0-900); Monocytes Percent Auto 6.7 % (3-14); Neutrophils Absolute Auto 4000 /uL (1500-7000); Platelet Count 207 X10^3/uL (150-400); Red Blood Cell Count 3.99 X10^6/uL (4.5-5.9); Red Cell Distribution Width 14.3 % (11.6-14.8)
[2024-06-01 12:45] LABS: Iron 100 ug/dL (49-181)
[2024-06-01 12:49] LABS: BUN Creatinine Ratio 23.7 (6-22); Blood Urea Nitrogen 40 mg/dL (9-20); Carbon Dioxide 32 mmol/L (22-32); Chloride 99 mmol/L (98-107); Estimated Glomerular Filt Rate 43 mL/min (>60); Glucose 117 mg/dL (80-110); HEMOLYSIS < 15 (0-50); Sodium 135 mmol/L (137-145)
[2024-06-01 12:51] LABS: Potassium 5.4 mmol/L (3.4-5.1)
[2024-06-01 12:55] LABS: Total Iron Binding Capacity 224 ug/dL (261-462)
[2024-06-01 13:23] LABS: Ferritin 444 ng/mL (18-464)
== END ==
PROVIDERS: PCP Family Medicine; Referring Provider Family Medicine; Visit Provider Family Medicine
DX: N18.32 Chronic kidney disease, stage 3b (principal); R59.0 Localized enlarged lymph nodes; D50.8 Other iron deficiency anemias
CPT/HCPCS: 36415; 76536; 80048; 82728; 83540; 83550; 85025